=== PATIENT | male | born 1930 | race Caucasian/White ===

== ENCOUNTER 2018-02-10 19:13 | Emergency (ER) | payer MEDICARE, OTHER ==
[2018-02-10 19:31] VITALS: BP 170/79; PULSE 65; RESP 16; TEMP 97.3
--- NOTE | 2018-02-10 21:10 | XR ---
EXAMINATION TYPE: XR lumbar spine 2 or 3V DATE OF EXAM: 02/10/2018 COMPARISON: September 23, 2013 HISTORY: Pinched nerve TECHNIQUE: 3 views. FINDINGS: There is 5 mm anterior subluxation of L4 in relation L5. There is narrowing of the L4-5 disc space. There is thickened 15% depression of the superior endplate of L2 and L1. There is some osteopenia. Th ere is extensive calcification probably due to chronic pancreatitis. There is vascular calcification. Sacroiliac joints are intact. IMPRESSION: Old compression fractures. Degenerative first-degree L4-5 spondylolisthesis. No significant change co mpared to old exam. No acute fracture seen.
--- NOTE | 2018-02-10 22:21 | CT ---
EXAMINATION TYPE: CT thor lumbar spine wo con DATE OF EXAM: 02/10/2018 COMPARISON: Chest CT scan 12/13/2010 HISTORY: Generalized back pain. CT DLP: 674.5 mGycm Automated exposure control for dose reduction was used. FINDINGS: There is osteopenia. There is 15% compression of the inferior endplates of L4 and L5. There is 30% co mpression superior endplate of L2. There is 10% compression superior endplate of L1. There is 15% ant erior wedging of T12 T11 T9 T8. There is 25% anterior wedging T6. There is thoracic dextroscoliosis a nd slight lumbar levoscoliosis. There is no thoracic paraspinal mass. The posterior elements are inta ct. There is a stellate 3 cm infiltrate in the right upper lobe at the apex. There is some linear den sity at the posterior lung bases. IMPRESSION: THERE ARE NUMEROUS MILD THORACIC COMPRESSION FRACTURES THAT ARE ESSENTIALLY NEW COMPARED TO OLD CHEST CT SCAN OF 12/13/2010 AND CONSISTENT WITH OSTEOPOROSIS. THERE ARE MULTIPLE LUMBAR COMPRESSION FRACTUR ES UNCHANGED COMPARED TO LUMBAR SPINE CT SCAN OF SEPTEMBER 23, 2013.. THESE ARE CONSISTENT WITH OSTEOPOR OSIS.
--- NOTE | 2018-02-10 23:14 | ED ---
General Adult HPI - General Chief complaint: Back Pain/Injury Stated complaint: Back pain Time Seen by Provider: 02/10/18 20:37 Source: patient, family, RN notes reviewed Mode of arrival: wheelchair Limitations: no limitations - History of Present Illness Initial comments: 87-year-old male presents to the emergency room for a chief complaint of mid back pain 5 days. Patient states he was working on a project at a desk in a twisted position and ever since then has had pain in his back. Patient states that his primary care doctors and was diagnosed with a nerve. He was given Epworth and Motrin for pain relief. Daughter states patient is ambulatory at home and is able to get up and down from a sitting position without difficulty. Daughter states she is monitoring him during this time. Patient denies any bladder or bowel changes. Patient denies any saddle anesthesia. he describes the pain as sharp shooting pain in mid and lower back. This pain is consistent with previous episodes of back pain. Patient has a history of compression fractures. Patient has no other complaints at this time including shortness of breath, chest pain, abdominal pain, nausea or vomiting, headache, or visual changes. - Related Data Home Medications Medication Instructions Recorded Confirmed Enalapril [Vasotec] 5 mg PO DAILY 07/03/14 02/10/18 Ezetimibe/Simvastatin [Vytorin 1 tab PO DAILY 07/03/14 02/10/18 10-20 mg Tablet] LORazepam [Ativan] 1 mg PO TID PRN 07/03/14 02/10/18 Metoprolol Tartrate [Lopressor] 12.5 mg PO DAILY 07/03/14 02/10/18 Multivitamins, Thera [Multivitamin 1 tab PO DAILY 02/13/15 02/10/18 (formulary)] HYDROcodone/APAP 5-325MG [Epworth 1 tab PO TID PRN 02/10/18 02/10/18 5-325] Lidocaine 5% Oint [Xylocaine 5% 1 applic TOPICAL DAILY PRN 02/10/18 02/10/18 Oint] Lidocaine [Lidoderm 5% Patch] 1 patch TRANSDERM DAILY PRN 02/10/18 02/10/18 Previous Rx's Medication Instructions Recorded Aspirin EC [Ecotrin Low Dose] 81 mg PO BID tablet. 02/16/15 Isosorbide Mononitrate ER [Imdur] 30 mg PO DAILY tab.er.24h 02/16/15 Nitroglycerin Sl Tabs [Nitrostat] 0.4 mg SUBLINGUAL Q5M PRN #0 tab 02/16/15 metFORMIN HCL ER [Glucophage Xr] 500 mg PO PC-SUPPER tab.er.24h 02/16/15 Allergies Allergy/AdvReac Type Severity Reaction Status Date / Time No Known Allergies Allergy Verified 02/10/18 20:52 Review of Systems ROS Statement: Those systems with pertinent positive or pertinent negative responses have been documented in the HPI. ROS Other: All systems not noted in ROS Statement are negative. Past Medical History Past Medical History: COPD, Diabetes Mellitus, Hyperlipidemia, Hypertension, Memory Impairment Additional Past Medical History / Comment(s): Hard of Hearing History of Any Multi-Drug Resistant Organisms: None Reported Past Surgical History: Hernia Repair, Orthopedic Surgery Additional Past Surgical History / Comment(s): Triple A repair, heart valve repair, Past Anesthesia/Blood Transfusion Reactions: No Reported Reaction Past Psychological History: Anxiety Smoking Status: Current every day smoker Past Alcohol Use History: Rare Past Drug Use History: None Reported - Past Family History Father Family Medical History: Cancer Mother Family Medical History: CVA/TIA General Exam Limitations: no limitations General appearance: alert, in no apparent distress Eye exam: Present: normal appearance, PERRL, EOMI. Absent: scleral icterus, conjunctival injection, periorbital swelling, periorbital tenderness Neck exam: Present: normal inspection, full ROM. Absent: tenderness, meningismus, lymphadenopathy Respiratory exam: Present: normal lung sounds bilaterally. Absent: respiratory distress, wheezes, rales, rhonchi, stridor Cardiovascular Exam: Present: regular rate, normal rhythm, normal heart sounds. Absent: systolic murmur, diastolic murmur, rubs, gallop, clicks Extremities exam: Present: normal capillary refill (cap refill < 2 secs in lower extremities bilaterally.), other (sensation intact in LE bilaterally. patient is able to move both feet without difficulty.) Back exam: Present: full ROM (Patient has limited flexion and extension of the lumbar spine. He is able to go from a laying to seated position and from seated to standing. He was able to transfer from the bed to the wheelchair with one assist. ), tenderness (Tenderness to palpation of the thoracic and lumbar spine. ), vertebral tenderness. Absent: CVA tenderness (R), CVA tenderness (L), paraspinal tenderness Neurological exam: Present: alert Psychiatric exam: Present: normal affect, normal mood Course Vital Signs 02/10/18 19:26 Temperature 97.3 F L Pulse Rate 65 Respiratory 16 Rate Blood Pressure 170/79 O2 Sat by Pulse 97 Oximetry Medical Decision Making - Medical Decision Making 87-year-old male presents to the emergency department for a chief complaint of mid and lower back pain 5 days. Patient was working on a project at his desk in a twisted position which caused the pain. Patient has a pinched nerve according to his primary care doctor. His primary prescribed him Epworth and Motrin which the daughter states the patient has not been taking as often as directed. On exam patient has tenderness of the thoracic and lumbar spine. He is able to go from a laying to a sitting position with one assist as well as from sitting to standing. He is able to transfer from bed to wheelchair with one assist. Neurovascular intact in the lower extremities bilaterally. Patient denies any saddle anesthesia, bladder or bowel changes, or shooting pain or numbness down the legs.CT of the thoracic spine shows numerous compression fractures that are essentially new compared to the old chest computed tomography scan from 2011 and consistent with osteoporosis. On the lumbar CT there are multiple compression fractures unchanged compared to the lumbar spines scan of 2013 which are also consistent with osteoporosis. However I discussed this with the patient's daughter and she states he has had multiple thoracic compression fracture since 2010 that she is already aware of. Patient was offered pain medication in the emergency determine but daughter states that the pain meds like morphine makes him delirious. Muscle relaxers also make him delirious. Patient was offered admission into the emergency department for pain management. Patient declined this. He states he would rather go home and try to take the Epworth and Motrin as directed. Daughter will be there to monitor him. She will bring him back to the emergency department if he has any worsening symptoms or his pain is not controlled. She is aware that she can do this. Otherwise they will follow up with primary care in 1-2 days. Disposition Clinical Impression: Mechanical back pain Disposition: HOME SELF-CARE Condition: Good Instructions: Chronic Back Pain (ED) Additional Instructions: Please continue to take an Epworth every 6 hours and Motrin in between the Epworth as directed by her primary care doctor. If symptoms worsen or do not improve return to the emergency department. Otherwise follow-up with Dr. Frankel in one to 2 days as discussed. Is patient prescribed a controlled substance at d/c from ED?: No Referrals: Jeremy Frankel MD [Primary Care Provider] - 1-2 days Time of Disposition: 23:13
== END 2018-02-10 23:22 | disposition home or self-care (01) ==
LOC: EC 19:13
DX: M54.6 Pain in thoracic spine (principal); M54.5 Low back pain; E78.5 Hyperlipidemia, unspecified; I10 Essential (primary) hypertension; F41.9 Anxiety disorder, unspecified; F17.200 Nicotine dependence, unspecified, uncomplicated; Z98.890 Other specified postprocedural states; Z79.899 Other long term (current) drug therapy; X50.1XXA Overexertion from prolonged static or awkward postures, initial encounter; Y93.89 Activity, other specified
CPT/HCPCS: 72100; 72128; 72131; 99283

== ENCOUNTER 2018-08-15 21:51 | Emergency (ER) | payer MEDICARE, OTHER ==
[2018-08-15 22:07] VITALS: TEMP 98.3
[2018-08-15] MEDS ORDERED: IPRATROPIUM-ALBUTEROL 3 ML NEB INHALATION STA (22:17)
[2018-08-15] MEDS ORDERED: ASPIRIN 81 MG PO STA (22:17)
[2018-08-15 22:57] LABS: Basophils % (A) 0 %; Eosinophils # (A) 0.1 k/uL (0-0.7); Eosinophils % (A) 2 %; HCT 45.6 % (39.0-53.0); HGB 14.3 gm/dL (13.0-17.5); Lymphocytes # (A) 1.7 k/uL (1.0-4.8); Lymphocytes % (A) 29 %; MCHC 31.3 g/dL (31.0-37.0); MCV 95.8 fL (80.0-100.0); Mean Platelet Volume 7.5; Monocytes # (A) 0.5 k/uL (0-1.0); Monocytes % (A) 9 %; Neutrophils # (A) 3.2 k/uL (1.3-7.7); Neutrophils % (A) 57 %; Platelet Count 218 k/uL (150-450); RBC 4.76 m/uL (4.30-5.90); RDW 14.2 % (11.5-15.5); WBC 5.6 k/uL (3.8-10.6)
[2018-08-15 23:08] LABS: Anion Gap 5 mmol/L; Blood Urea Nitrogen 28 mg/dL (9-20); Calcium 9.7 mg/dL (8.4-10.2); Carbon Dioxide 28 mmol/L (22-30); Chloride 107 mmol/L (98-107); Glucose 232 mg/dL (74-99); Magnesium 1.8 mg/dL (1.6-2.3); Potassium 4.5 mmol/L (3.5-5.1); Sodium 140 mmol/L (137-145)
--- NOTE | 2018-08-15 23:45 | XR ---
EXAMINATION TYPE: XR chest 2V DATE OF EXAM: 08/15/2018 COMPARISON: 03/22/2015 HISTORY: Chest pain TECHNIQUE: Frontal and lateral views of the chest are obtained. FINDINGS: Heart is enlarged. Thoracic aorta is atheromatous. There is no heart failure. There is holland e coarsening of the lung markings. There is no pleural effusion. There are chest leads. There is 25% anterior wedging of T10 vertebra. IMPRESSION: COPD. Cardiomegaly. Pulmonary fibrosis. Mild compression fracture of T10 compared to old exam.
--- NOTE | 2018-08-15 23:47 | XR ---
EXAMINATION TYPE: XR abdomen 1V DATE OF EXAM: 08/15/2018 COMPARISON: NONE HISTORY: Difficulty breathing. Short of breath. TECHNIQUE: 2 views upright FINDINGS: There is no sign of intestinal obstruction or pneumoperitoneum. Fecal pattern is normal. Th ere is vascular calcification. There is amorphous calcification over the left upper quadrant that cou ld be splenic calcification. Renal calcification is also possible. IMPRESSION: Nonacute abdomen. No free air.
[2018-08-16] MEDS ORDERED: predniSONE 20 MG TAB PO STA (00:39)
[2018-08-16] MEDS ORDERED: AZITHROMYCIN 500 MG TAB PO STA (00:39)
[2018-08-16 00:57] VITALS: BP 145/67; PULSE 58; RESP 16
--- NOTE | 2018-08-16 00:57 | ED ---
General Adult HPI - General Chief complaint: Shortness of Breath Stated complaint: ALFREDO Time Seen by Provider: 08/15/18 22:09 Source: patient Mode of arrival: ambulatory Limitations: no limitations - History of Present Illness Initial comments: Patient is an 88-year-old male presents with a chief complaint of shortness of breath. Patient says he has been increasingly short of breath with a productive cough over the last 2 days. He cannot identify an inciting incident though he does admit that he has a sick granddaughter at home. Patient denies fever, nausea or vomiting. He denies chest pain. Patient states that his cough is productive of yellowish brownish sputum. Patient also complains of a stomachache. Last bowel movement was yesterday. - Related Data Home Medications Medication Instructions Recorded Confirmed Enalapril [Vasotec] 5 mg PO DAILY 07/03/14 02/10/18 Ezetimibe/Simvastatin [Vytorin 1 tab PO DAILY 07/03/14 02/10/18 10-20 mg Tablet] LORazepam [Ativan] 1 mg PO TID PRN 07/03/14 02/10/18 Metoprolol Tartrate [Lopressor] 12.5 mg PO DAILY 07/03/14 02/10/18 Multivitamins, Thera [Multivitamin 1 tab PO DAILY 02/13/15 02/10/18 (formulary)] HYDROcodone/APAP 5-325MG [[place] 1 tab PO TID PRN 02/10/18 02/10/18 5-325] Lidocaine 5% Oint [Xylocaine 5% 1 applic TOPICAL DAILY PRN 02/10/18 02/10/18 Oint] Lidocaine [Lidoderm 5% Patch] 1 patch TRANSDERM DAILY PRN 02/10/18 02/10/18 Previous Rx's Medication Instructions Recorded Aspirin EC [Ecotrin Low Dose] 81 mg PO BID tablet. 02/16/15 Isosorbide Mononitrate ER [Imdur] 30 mg PO DAILY tab.er.24h 02/16/15 Nitroglycerin Sl Tabs [Nitrostat] 0.4 mg SUBLINGUAL Q5M PRN #0 tab 02/16/15 metFORMIN HCL ER [Glucophage Xr] 500 mg PO PC-SUPPER tab.er.24h 02/16/15 Albuterol Inhaler [Ventolin Hfa 1 - 2 puff INHALATION RT-Q6H #1 08/16/18 Inhaler] inhaler Azithromycin 250 mg PO DAILY #4 tablet 08/16/18 predniSONE 60 mg PO DAILY #12 tab 08/16/18 Allergies Allergy/AdvReac Type Severity Reaction Status Date / Time No Known Allergies Allergy Verified 08/15/18 22:07 Review of Systems ROS Statement: Those systems with pertinent positive or pertinent negative responses have been documented in the HPI. ROS Other: All systems not noted in ROS Statement are negative. Respiratory: Reports: as per HPI, cough Gastrointestinal: Reports: abdominal pain Past Medical History Past Medical History: COPD, Diabetes Mellitus, Hyperlipidemia, Hypertension, Memory Impairment Additional Past Medical History / Comment(s): Hard of Hearing History of Any Multi-Drug Resistant Organisms: None Reported Past Surgical History: Hernia Repair, Orthopedic Surgery Additional Past Surgical History / Comment(s): Triple A repair, heart valve repair, Past Anesthesia/Blood Transfusion Reactions: No Reported Reaction Past Psychological History: Anxiety Smoking Status: Current every day smoker Past Alcohol Use History: Occasional Past Drug Use History: None Reported - Past Family History Father Family Medical History: Cancer Mother Family Medical History: CVA/TIA General Exam Limitations: no limitations General appearance: alert, in no apparent distress Head exam: Present: atraumatic, normocephalic Eye exam: Present: normal appearance ENT exam: Present: normal exam Neck exam: Present: normal inspection Respiratory exam: Present: decreased breath sounds. Absent: respiratory distress, wheezes Cardiovascular Exam: Present: regular rate, normal rhythm GI/Abdominal exam: Present: soft, tenderness (Patient has mild generalized tenderness.). Absent: distended Rectal exam: Present: deferred Extremities exam: Present: normal inspection Back exam: Present: other (Patient has what appears to be scoliosis, right- sided ribs are elevated when compared to the left. No tenderness to palpation.) Neurological exam: Present: alert, oriented X3 Psychiatric exam: Present: normal affect, normal mood Skin exam: Present: warm, dry, intact Course Vital Signs 08/15/18 08/15/18 08/15/18 22:03 22:34 22:59 Temperature 98.3 F Pulse Rate 58 L 56 L 61 Respiratory 20 Rate Blood Pressure 187/98 O2 Sat by Pulse 95 Oximetry 08/16/18 00:56 Temperature Pulse Rate 58 L Respiratory 16 Rate Blood Pressure 145/67 O2 Sat by Pulse 96 Oximetry Medical Decision Making - Medical Decision Making Patient presents with chief complaint cough and shortness of breath. On initial evaluation, vital signs show hypertension but are otherwise unremarkable. EKG performed at 2220 shows sinus bradycardia with a rate of 55 bpm. There is left axis deviation. Sinus. A normal limits, no acute signs of ischemia. When compared to previous study performed on 07/29/2017, with forms a similar, no acute changes. Patient evaluated with basic labs including troponins, chest x-ray, and CT of the abdomen given abdominal pain. Patient given aspirin and breathing treatments. He was reexamined after the breathing treatments with improvement of his breath sounds and alleviation of his shortness of breath. Labs thus far unremarkable, troponin negative. Chest x- ray shows no evidence of pneumonia although there is cardiomegaly present. No overt congestive heart failure. Computed tomography scan of the abdomen and pelvis shows no evidence of acute process. At this time, patient stable for discharge. He will be treated for bronchitis with azithromycin and prednisone and albuterol. Patient was instructed to follow-up with primary care in 1-2 days, return to the emergency department if symptoms worsen or change. - Lab Data Result diagrams: 08/15/18 22:37 08/15/18 22:37 Lab Results 08/15/18 08/15/18 08/15/18 Range/Units 22:37 22:37 22:37 WBC 5.6 (3.8-10.6) k/uL RBC 4.76 (4.30-5.90) m/uL Hgb 14.3 (13.0-17.5) gm/dL Hct 45.6 (39.0-53.0) % MCV 95.8 (80.0-100.0) fL MCH 30.0 (25.0-35.0) pg MCHC 31.3 (31.0-37.0) g/dL RDW 14.2 (11.5-15.5) % Plt Count 218 (150-450) k/uL Neutrophils % 57 % Lymphocytes % 29 % Monocytes % 9 % Eosinophils % 2 % Basophils % 0 % Neutrophils # 3.2 (1.3-7.7) k/uL Lymphocytes # 1.7 (1.0-4.8) k/uL Monocytes # 0.5 (0-1.0) k/uL Eosinophils # 0.1 (0-0.7) k/uL Basophils # 0.0 (0-0.2) k/uL Sodium 140 (137-145) mmol/L Potassium 4.5 (3.5-5.1) mmol/L Chloride 107 (98-107) mmol/L Carbon Dioxide 28 (22-30) mmol/L Anion Gap 5 mmol/L BUN 28 H (9-20) mg/dL Creatinine 0.73 (0.66-1.25) mg/dL Est GFR (CKD-EPI)AfAm >90 (>60 ml/min/1.73 sqM) Est GFR (CKD-EPI)NonAf 84 (>60 ml/min/1.73 sqM) Glucose 232 H (74-99) mg/dL Calcium 9.7 (8.4-10.2) mg/dL Magnesium 1.8 (1.6-2.3) mg/dL Troponin I 0.018 (0.000-0.034) ng/mL NT-Pro-B Natriuret Pep pg/mL 08/15/18 Range/Units 22:37 WBC (3.8-10.6) k/uL RBC (4.30-5.90) m/uL Hgb (13.0-17.5) gm/dL Hct (39.0-53.0) % MCV (80.0-100.0) fL MCH (25.0-35.0) pg MCHC (31.0-37.0) g/dL RDW (11.5-15.5) % Plt Count (150-450) k/uL Neutrophils % % Lymphocytes % % Monocytes % % Eosinophils % % Basophils % % Neutrophils # (1.3-7.7) k/uL Lymphocytes # (1.0-4.8) k/uL Monocytes # (0-1.0) k/uL Eosinophils # (0-0.7) k/uL Basophils # (0-0.2) k/uL Sodium (137-145) mmol/L Potassium (3.5-5.1) mmol/L Chloride (98-107) mmol/L Carbon Dioxide (22-30) mmol/L Anion Gap mmol/L BUN (9-20) mg/dL Creatinine (0.66-1.25) mg/dL Est GFR (CKD-EPI)AfAm (>60 ml/min/1.73 sqM) Est GFR (CKD-EPI)NonAf (>60 ml/min/1.73 sqM) Glucose (74-99) mg/dL Calcium (8.4-10.2) mg/dL Magnesium (1.6-2.3) mg/dL Troponin I (0.000-0.034) ng/mL NT-Pro-B Natriuret Pep 4080 pg/mL Disposition Clinical Impression: Bronchitis Disposition: HOME SELF-CARE Condition: Good Instructions: Acute Bronchitis (ED) Prescriptions: Albuterol Inhaler [Ventolin Hfa Inhaler] 1 - 2 puff INHALATION RT-Q6H #1 inhaler Azithromycin 250 mg PO DAILY #4 tablet predniSONE 60 mg PO DAILY #12 tab Is patient prescribed a controlled substance at d/c from ED?: No Referrals: Jeremy Frankel MD [Primary Care Provider] - 1-2 days
--- NOTE | 2018-08-16 01:08 | CT ---
EXAMINATION TYPE: CT abdomen pelvis w con DATE OF EXAM: 08/16/2018 COMPARISON: 07/29/2017 HISTORY: Abdominal pain CT DLP: 486.6 mGycm Automated exposure control for dose reduction was used. TECHNIQUE: Helical acquisition of images was performed from the lung bases through the pelvis. CONTRAST: Performed without Oral Contrast and with IV Contrast, patient injected with 100 mL of Isovue 300. FINDINGS: There is some atelectasis at the left lung base.. Heart is enlarged. There is no pleural effusion. Th ere is no pericardial effusion. Abdominal aorta is atheromatous. Liver shows no focal defect. Gallbla dder appears normal. The spleen appears normal. There are numerous pancreatic calcifications. There i s 2.9 cm low-density left adrenal mass. The kidneys show satisfactory contrast opacification. There is no hydronephrosis. There is no retrope ritoneal adenopathy. There is atherosclerotic vascular calcification in the abdominal aorta and the b ranches. There is no sign of free air. There is a very small amount of free fluid in the pelvis. Blad ivon distends smoothly. There is no inguinal hernia. There is 25% depression of the superior endplate of L2. There is 15% depression superior endplate of L1. The bony pelvis appears intact. IMPRESSION: THERE IS INCREASED ATELECTASIS AT THE LEFT LUNG BASE COMPARED TO OLD EXAM. THERE IS NEW MINIMAL FREE FLUID IN THE PELVIS COMPARED TO OLD EXAM. NO EVIDENCE OF A BOWEL OBSTRUCTION. NO FREE AIR. EXTENSIVE ATHEROSCLEROTIC VASCULAR DISEASE. OLD COMPRESSION FRACTURES IN THE LUMBAR SPINE. NO ACUTE FRACTURE SE EN. EXTENSIVE PANCREATIC CALCIFICATION CONSISTENT WITH CHRONIC PANCREATITIS UNCHANGED. STABLE LEFT ADRENAL MASS.
== END 2018-08-16 01:21 | disposition home or self-care (01) ==
LOC: EC 21:51
DX: J40 Bronchitis, not specified as acute or chronic (principal); R00.1 Bradycardia, unspecified; I11.9 Hypertensive heart disease without heart failure; M95.4 Acquired deformity of chest and rib; R10.9 Unspecified abdominal pain; E78.5 Hyperlipidemia, unspecified; F17.200 Nicotine dependence, unspecified, uncomplicated; Z79.899 Other long term (current) drug therapy; Z98.890 Other specified postprocedural states
CPT/HCPCS: 36415; 94644; 93005; 83880; 80048; 83735; 84484; 85025; 71046; 74018; 74177; 99285; J7512; Q9967

== ENCOUNTER 2018-09-21 16:17 | Emergency (ER) | payer MEDICARE, OTHER ==
[2018-09-21 17:28] LABS: Basophils % (A) 0 %; Eosinophils # (A) 0.1 k/uL (0-0.7); Eosinophils % (A) 1 %; HCT 45.8 % (39.0-53.0); HGB 14.2 gm/dL (13.0-17.5); Lymphocytes # (A) 1.4 k/uL (1.0-4.8); Lymphocytes % (A) 19 %; MCH 29.3 pg (25.0-35.0); MCV 94.4 fL (80.0-100.0); Monocytes # (A) 0.5 k/uL (0-1.0); Monocytes % (A) 7 %; Neutrophils # (A) 5.2 k/uL (1.3-7.7); Neutrophils % (A) 70 %; Platelet Count 215 k/uL (150-450); RBC 4.85 m/uL (4.30-5.90); RDW 14.1 % (11.5-15.5); WBC 7.4 k/uL (3.8-10.6)
[2018-09-21 17:45] LABS: ALT 31 U/L (21-72); AST 26 U/L (17-59); Albumin 3.7 g/dL (3.5-5.0); Alkaline Phosphatase 74 U/L (38-126); Anion Gap 7 mmol/L; Blood Urea Nitrogen 29 mg/dL (9-20); Calcium 9.6 mg/dL (8.4-10.2); Carbon Dioxide 27 mmol/L (22-30); Chloride 108 mmol/L (98-107); Glucose 132 mg/dL (74-99); Potassium 4.7 mmol/L (3.5-5.1); Sodium 142 mmol/L (137-145); Total Bilirubin 0.5 mg/dL (0.2-1.3); Total Protein 6.5 g/dL (6.3-8.2)
[2018-09-21 17:55] LABS: Creatine Kinase MB 2.8 ng/mL (0.0-2.4); Troponin I 0.031 ng/mL (0.000-0.034)
[2018-09-21 19:39] VITALS: RESP 16
--- NOTE | 2018-09-21 19:42 | ED ---
General Adult HPI - General Source: patient, family, RN notes reviewed Mode of arrival: wheelchair Limitations: no limitations <Jitendra Vanessa - Last Filed: 09/21/18 20:46> <Alfonzo Jacobsen - Last Filed: 09/21/18 22:52> - General Chief complaint: Shortness of Breath Stated complaint: SOB Time Seen by Provider: 09/21/18 19:30 - History of Present Illness Initial comments: This is an 88-year-old male who presents to the emergency department who currently smokes. Patient comes in today because he says since April he's been battling difficulty breathing. Patient states the dyspnea is getting worse since April over the last couple of days he feels as though is much worse. Patient denies any chest pain or palpitations. Patient denies any fever chills. Patient has abdominal pain patient denies nausea vomiting diarrhea. Patient states a month ago he was treated for bronchitis. Patient denies any leg swelling or calf tenderness. Patient denies any recent injury. Patient denies any lightheadedness or dizziness patient denies headache patient denies numbness weakness (Jitendra Vanessa) - Related Data Home Medications Medication Instructions Recorded Confirmed Enalapril [Vasotec] 5 mg PO DAILY 07/03/14 02/10/18 Ezetimibe/Simvastatin [Vytorin 1 tab PO DAILY 07/03/14 02/10/18 10-20 mg Tablet] LORazepam [Ativan] 1 mg PO TID PRN 07/03/14 02/10/18 Metoprolol Tartrate [Lopressor] 12.5 mg PO DAILY 07/03/14 02/10/18 Multivitamins, Thera [Multivitamin 1 tab PO DAILY 02/13/15 02/10/18 (formulary)] HYDROcodone/APAP 5-325MG [[place] 1 tab PO TID PRN 02/10/18 02/10/18 5-325] Lidocaine 5% Oint [Xylocaine 5% 1 applic TOPICAL DAILY PRN 02/10/18 02/10/18 Oint] Lidocaine [Lidoderm 5% Patch] 1 patch TRANSDERM DAILY PRN 02/10/18 02/10/18 Previous Rx's Medication Instructions Recorded Aspirin EC [Ecotrin Low Dose] 81 mg PO BID tablet. 02/16/15 Isosorbide Mononitrate ER [Imdur] 30 mg PO DAILY tab.er.24h 02/16/15 Nitroglycerin Sl Tabs [Nitrostat] 0.4 mg SUBLINGUAL Q5M PRN #0 tab 02/16/15 metFORMIN HCL ER [Glucophage Xr] 500 mg PO PC-SUPPER tab.er.24h 02/16/15 Albuterol Inhaler [Ventolin Hfa 1 - 2 puff INHALATION RT-Q6H #1 08/16/18 Inhaler] inhaler Azithromycin 250 mg PO DAILY #4 tablet 08/16/18 predniSONE 60 mg PO DAILY #12 tab 08/16/18 Albuterol Inhaler [Ventolin Hfa 1 - 2 puff INHALATION RT-Q6H PRN 09/21/18 Inhaler] #1 inhaler predniSONE 50 mg PO DAILY #5 tablet 09/21/18 Allergies Allergy/AdvReac Type Severity Reaction Status Date / Time No Known Allergies Allergy Verified 09/21/18 16:25 Review of Systems ROS Other: All systems not noted in ROS Statement are negative. <Jitendra Vanessa - Last Filed: 09/21/18 20:46> ROS Other: All systems not noted in ROS Statement are negative. <Alfonzo Jacobsen - Last Filed: 09/21/18 22:52> ROS Statement: Those systems with pertinent positive or pertinent negative responses have been documented in the HPI. Past Medical History Past Medical History: COPD, Diabetes Mellitus, Hyperlipidemia, Hypertension, Memory Impairment Additional Past Medical History / Comment(s): Hard of Hearing History of Any Multi-Drug Resistant Organisms: None Reported Past Surgical History: Hernia Repair, Orthopedic Surgery Additional Past Surgical History / Comment(s): Triple A repair, heart valve repair, Past Anesthesia/Blood Transfusion Reactions: No Reported Reaction Past Psychological History: Anxiety Smoking Status: Current every day smoker Past Alcohol Use History: Occasional Past Drug Use History: None Reported - Past Family History Father Family Medical History: Cancer Mother Family Medical History: CVA/TIA <Jitendra Vanessa - Last Filed: 09/21/18 20:46> General Exam Limitations: no limitations <Jitendra Vanessa - Last Filed: 09/21/18 20:46> <Alfonzo Jacobsen - Last Filed: 09/21/18 22:52> - General Exam Comments Initial Comments: GENERAL: Patient is well-developed and well-nourished. Patient is nontoxic and well- hydrated and is in mild distress. ENT: Neck is soft and supple. No significant lymphadenopathy is noted. Oropharynx is clear. Moist mucous membranes. Neck has full range of motion without eliciting any pain. EYES: The sclera were anicteric and conjunctiva were pink and moist. Extraocular movements were intact and pupils were equal round and reactive to light. Eyelids were unremarkable. PULMONARY: Patient has crackles bilateral bases CARDIOVASCULAR: There is a regular rate and rhythm without any murmurs gallops or rubs. ABDOMEN: Soft and nontender with normal bowel sounds. No palpable organomegaly was noted. There is no palpable pulsatile mass. SKIN: Skin is clear with no lesions or rashes and otherwise unremarkable. NEUROLOGIC: Patient is alert and oriented x3. Cranial nerves II through XII are grossly intact. Motor and sensory are also intact. Normal speech, volume and content. Symmetrical smile. MUSCULOSKELETAL: Normal extremities with adequate strength and full range of motion. No lower extremity swelling or edema. No calf tenderness. LYMPHATICS: No significant lymphadenopathy is noted PSYCHIATRIC: Normal psychiatric evaluation. Normal interpersonal interactions appears functionally intact in deals appropriately with others. No signs of depression. No signs of anxiety. (Jitendra Vanessa) Vital Signs 09/21/18 09/21/18 09/21/18 16:22 19:38 19:40 Temperature 98.4 F Pulse Rate 59 L 53 L Respiratory 20 16 Rate Blood Pressure 153/87 167/98 O2 Sat by Pulse 97 Oximetry 09/21/18 09/21/18 21:00 22:48 Temperature 97.8 F Pulse Rate 78 78 Respiratory 16 16 Rate Blood Pressure 176/102 159/94 O2 Sat by Pulse 97 97 Oximetry Medical Decision Making - Lab Data Result diagrams: 09/21/18 17:11 09/21/18 17:11 <Jitendra Vanessa - Last Filed: 09/21/18 20:46> - Lab Data Result diagrams: 09/21/18 17:11 09/21/18 17:11 <Alfonzo Jacobsen - Last Filed: 09/21/18 22:52> - Medical Decision Making EKG shows sinus bradycardia at 59 bpm ME interval is 200 QRS is 126 QT interval is 444 QTC is 439 per patient's EKG shows some T-wave inversions in V5 and V6. Dr. Jacobsen will be taking over the care of this patient at 9 PM (Jitendra Vanessa) This patient was signed out to me by Dr. Vanessa. Computed tomography scan was pending at the time of sign out. I did review the computed tomography scan which did not show any evidence for pneumothorax however did show what appears to be a lung mass and also changes consistent with COPD. Patient does have what appears to be cor pulmonale as well. He does have a mild dilation of his thoracic aorta. The patient has been ambulatory up to the bathroom and back without any his comfort. The patient actually states that he feels improved since coming to the emergency department. I discussed the findings with him and his daughter. I stated that it requires good follow-up if her going to send the patient home. The patient states he feels well enough to go like to try to go home. Blood work was reviewed and unremarkable. I did state that I would give her some steroids and inhaler for the next few days. He is going to call his doctor in the next 1-2 days for follow-up. I told him that he needs to have the lung mass evaluated and the aortic aneurysm followed. He likely is developing worsening COPD. He does continue to smoke. I told him that he could always return if he has worsening or changing symptoms. All questions were answered. (Aflonzo Jacobsen) - Lab Data Lab Results 09/21/18 09/21/18 09/21/18 Range/Units 17:11 17:11 17:11 WBC 7.4 (3.8-10.6) k/uL RBC 4.85 (4.30-5.90) m/uL Hgb 14.2 (13.0-17.5) gm/dL Hct 45.8 (39.0-53.0) % MCV 94.4 (80.0-100.0) fL MCH 29.3 (25.0-35.0) pg MCHC 31.0 (31.0-37.0) g/dL RDW 14.1 (11.5-15.5) % Plt Count 215 (150-450) k/uL Neutrophils % 70 % Lymphocytes % 19 % Monocytes % 7 % Eosinophils % 1 % Basophils % 0 % Neutrophils # 5.2 (1.3-7.7) k/uL Lymphocytes # 1.4 (1.0-4.8) k/uL Monocytes # 0.5 (0-1.0) k/uL Eosinophils # 0.1 (0-0.7) k/uL Basophils # 0.0 (0-0.2) k/uL Sodium 142 (137-145) mmol/L Potassium 4.7 (3.5-5.1) mmol/L Chloride 108 H (98-107) mmol/L Carbon Dioxide 27 (22-30) mmol/L Anion Gap 7 mmol/L BUN 29 H (9-20) mg/dL Creatinine 0.73 (0.66-1.25) mg/dL Est GFR (CKD-EPI)AfAm >90 (>60 ml/min/1.73 sqM) Est GFR (CKD-EPI)NonAf 84 (>60 ml/min/1.73 sqM) Glucose 132 H (74-99) mg/dL Plasma Lactic Acid Parag (0.7-2.0) mmol/L Calcium 9.6 (8.4-10.2) mg/dL Total Bilirubin 0.5 (0.2-1.3) mg/dL AST 26 (17-59) U/L ALT 31 (21-72) U/L Alkaline Phosphatase 74 (38-126) U/L Total Creatine Kinase 64 (55-170) U/L CK-MB (CK-2) 2.8 H (0.0-2.4) ng/mL CK-MB (CK-2) Rel Index 4.4 Troponin I 0.031 (0.000-0.034) ng/mL NT-Pro-B Natriuret Pep pg/mL Total Protein 6.5 (6.3-8.2) g/dL Albumin 3.7 (3.5-5.0) g/dL 09/21/18 09/21/18 Range/Units 17:11 17:11 WBC (3.8-10.6) k/uL RBC (4.30-5.90) m/uL Hgb (13.0-17.5) gm/dL Hct (39.0-53.0) % MCV (80.0-100.0) fL MCH (25.0-35.0) pg MCHC (31.0-37.0) g/dL RDW (11.5-15.5) % Plt Count (150-450) k/uL Neutrophils % % Lymphocytes % % Monocytes % % Eosinophils % % Basophils % % Neutrophils # (1.3-7.7) k/uL Lymphocytes # (1.0-4.8) k/uL Monocytes # (0-1.0) k/uL Eosinophils # (0-0.7) k/uL Basophils # (0-0.2) k/uL Sodium (137-145) mmol/L Potassium (3.5-5.1) mmol/L Chloride (98-107) mmol/L Carbon Dioxide (22-30) mmol/L Anion Gap mmol/L BUN (9-20) mg/dL Creatinine (0.66-1.25) mg/dL Est GFR (CKD-EPI)AfAm (>60 ml/min/1.73 sqM) Est GFR (CKD-EPI)NonAf (>60 ml/min/1.73 sqM) Glucose (74-99) mg/dL Plasma Lactic Acid Parag 0.9 (0.7-2.0) mmol/L Calcium (8.4-10.2) mg/dL Total Bilirubin (0.2-1.3) mg/dL AST (17-59) U/L ALT (21-72) U/L Alkaline Phosphatase (38-126) U/L Total Creatine Kinase (55-170) U/L CK-MB (CK-2) (0.0-2.4) ng/mL CK-MB (CK-2) Rel Index Troponin I (0.000-0.034) ng/mL NT-Pro-B Natriuret Pep 6610 pg/mL Total Protein (6.3-8.2) g/dL Albumin (3.5-5.0) g/dL Disposition <Jitendra Vanessa - Last Filed: 09/21/18 20:46> Is patient prescribed a controlled substance at d/c from ED?: No <Alfonzo Jacobsen - Last Filed: 09/21/18 22:52> Clinical Impression: COPD (chronic obstructive pulmonary disease), Thoracic aortic aneurysm, Lung mass Disposition: HOME SELF-CARE Condition: Stable Instructions: COPD (Chronic Obstructive Pulmonary Disease) (ED) Prescriptions: Albuterol Inhaler [Ventolin Hfa Inhaler] 1 - 2 puff INHALATION RT-Q6H PRN #1 inhaler PRN Reason: Wheezing predniSONE 50 mg PO DAILY #5 tablet Referrals: Jeremy Frankel MD [Primary Care Provider] - 1-2 days
--- NOTE | 2018-09-21 20:29 | XR ---
EXAMINATION TYPE: XR chest 2V DATE OF EXAM: 09/21/2018 COMPARISON: 08/15/2018 HISTORY: 88-year-old male difficulty breathing and shortness of breath TECHNIQUE: PA and lateral views FINDINGS: Heart moderately enlarged. Aortic valve annuloplasty ring. Calcified granuloma right midlung. Retaine d epicardial pacer leads. Hyperinflation. Flattening of the hemidiaphragms. Increased AP chest dimens ion. Some focal air lucencies are seen in the retrosternal clear space and also posteriorly. Pneumoth orax not well seen on the frontal view. IMPRESSION: 1. Moderate cardiomegaly and advanced COPD. 2. Some focal air lucencies are noted in the retrosternal clear space and also posteriorly. Underlyin g PNEUMOTHORAX not excluded though not clearly identified on the frontal view. Findings called to Dr. Vanessa in the ER at 8:25 PM.
[2018-09-21 21:12] VITALS: PULSE 78
--- NOTE | 2018-09-21 22:00 | CT ---
EXAMINATION TYPE: CT chest angio for PE DATE OF EXAM: 09/21/2018 COMPARISON: Radiographs same day and prior CT 12/13/2010 HISTORY: 88-year-old male SOB, R/O PE TECHNIQUE: Contiguous axial scanning of the chest performed with IV Contrast, patient injected with 1 00 mL of Isovue 370. Coronal/sagittal MIP reconstructions performed. CT DLP: 209.1 mGycm Automated exposure control for dose reduction was used. FINDINGS: The heart is mildly enlarged. The descending thoracic aorta is aneurysmal measuring up to 3.3 cm. Mod erate apical scarring calcifications throughout. The patient appears cachectic. Large caliber to the main right and left pulmonary arteries measuring up to 3.0 cm suggesting underly ing pulmonary arterial hypertension. Satisfactory opacification of the pulmonary arterial system with out evidence for pulmonary embolus. Moderate to advanced centrilobular emphysema. Moderate bronchial wall thickening especially in the lower lobes. Interstitial changes at the left ba se may be chronic. There is some volume loss and prominent dependent atelectasis. Scattered calcified subpleural pulmonary nodules on the right. There is an irregular spiculated density measuring 1.9 cm that is gradually enlarged from 2010 where it was much less defined measuring 6 mm. No pneumothorax or pleural effusion. No definite thoracic lymphadenopathy. Small hiatal hernia. Reflux of contrast into the hepatic veins and aneurysmal of the abdominal aorta measuring up to 3.5 cm. Extensive pancreatic calcifications compatible with chronic pancreatitis. Bones: Some asymmetric crowding of the lower left ribs suggesting volume loss. Multiple endplate defo rmities throughout the thoracic spine are new from 2010 and are compatible with age indeterminate end plate injuries. T11 show slight retropulsion into the ventral spinal canal without canal compromise. IMPRESSION: 1. COPD WITH ADVANCED EMPHYSEMA. 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 CLINICALLY CORRELATE. 2. NO EVIDENCE FOR PULMONARY EMBOLUS. 3. NO PNEUMOTHORAX. HOWEVER, THERE IS A GRADUALLY ENLARGING SPICULATED LESION IN THE RIGHT UPPER LOBE CURRENTLY MEASURING 1.9 CM HIGHLY SUSPICIOUS FOR LUNG CANCER. FURTHER PET/CT EVALUATION AND PULMONAR Y REFERRAL RECOMMENDED. PERCUTANEOUS BIOPSY MAY BE CHALLENGING. CONSIDER INTERVENTIONAL CONSULTATION IN THE WORKUP. 4. INTERSTITIAL DENSITIES AT THE LEFT BASE. 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 NO DEFINITE ACUTE PULMONARY PROCESS. 5. MILDLY ANEURYSMAL DESCENDING THORACIC AORTA 3.3 CM AND PARTIALLY VISUALIZED AAA AT 3.5 CM. 6. NOTE THAT THE PATIENT APPEARS CACHECTIC ON CT. CHRONIC PANCREATITIS. MULTIPLE VERTEBRAL ENDPLATE F RACTURES ARE AGE-INDETERMINATE AND NEW FROM 2010.
[2018-09-21 22:49] VITALS: BP 159/94; TEMP 97.8
== END 2018-09-21 22:48 | disposition home or self-care (01) ==
LOC: EC 16:17
DX: J44.9 Chronic obstructive pulmonary disease, unspecified (principal); I71.2 Thoracic aortic aneurysm, without rupture; R91.8 Other nonspecific abnormal finding of lung field; R00.1 Bradycardia, unspecified; R10.9 Unspecified abdominal pain; E78.5 Hyperlipidemia, unspecified; I10 Essential (primary) hypertension; H91.90 Unspecified hearing loss, unspecified ear; F17.200 Nicotine dependence, unspecified, uncomplicated; Z79.899 Other long term (current) drug therapy; Z98.890 Other specified postprocedural states
CPT/HCPCS: 36415; 93005; 83880; 80053; 82550; 82553; 83605; 84484; 85025; 87040; 71046; 71275; 99285; Q9967

== ENCOUNTER 2018-12-08 16:41 | Observation (INO) | payer MEDICARE, OTHER ==
[2018-12-08] MEDS ORDERED: IPRATROPIUM-ALBUTEROL 3 ML NEB INHALATION STA (17:29)
[2018-12-08] MEDS ORDERED: methylPREDNISolone SOD SUCCI 125 MG/2 ML VIAL IV STA (17:29)
[2018-12-08 18:38] LABS: Basophils % (A) 0 %; Eosinophils % (A) 1 %; HCT 42.2 % (39.0-53.0); HGB 13.4 gm/dL (13.0-17.5); Lymphocytes # (A) 1.3 k/uL (1.0-4.8); Lymphocytes % (A) 20 %; MCH 30.2 pg (25.0-35.0); MCHC 31.8 g/dL (31.0-37.0); MCV 95.1 fL (80.0-100.0); Mean Platelet Volume 8.2; Monocytes # (A) 0.5 k/uL (0-1.0); Monocytes % (A) 8 %; Neutrophils # (A) 4.6 k/uL (1.3-7.7); Neutrophils % (A) 69 %; Platelet Count 203 k/uL (150-450); RBC 4.44 m/uL (4.30-5.90); RDW 14.6 % (11.5-15.5); WBC 6.6 k/uL (3.8-10.6)
[2018-12-08 18:41] LABS: ALT 48 U/L (21-72); AST 33 U/L (17-59); Albumin 3.7 g/dL (3.5-5.0); Alkaline Phosphatase 90 U/L (38-126); Anion Gap 6 mmol/L; Blood Urea Nitrogen 28 mg/dL (9-20); Calcium 9.7 mg/dL (8.4-10.2); Carbon Dioxide 30 mmol/L (22-30); Chloride 105 mmol/L (98-107); Glucose 130 mg/dL (74-99); Potassium 4.8 mmol/L (3.5-5.1); Sodium 141 mmol/L (137-145); Total Bilirubin 0.9 mg/dL (0.2-1.3); Total Protein 6.3 g/dL (6.3-8.2)
[2018-12-08 18:43] LABS: Partial Thromboplastin Time 26.1 sec (22.0-30.0); Prothrombin Time 10.8 sec (9.0-12.0)
--- NOTE | 2018-12-08 19:48 | CT ---
EXAMINATION TYPE: CT chest angio for PE with contrast and with 3-D reconstruction renderings DATE OF EXAM: 12/08/2018 COMPARISON: 09/21/2018 HISTORY: Shortness of breath. Left lower quadrant mass/lump. CT DLP: 198.5 mGycm Automated exposure control for dose reduction was used. CONTRAST: CT Chest for pulmonary embolism performed with with IV Contrast, patient injected with 100 mL of Isovue 370. 3-D reconstructions. FINDINGS: ACUTE FINDINGS: The pulmonary arteries are well opacified and are negative for filling defects to sug gest pulmonary emboli. The lungs are negative for pulmonary edema or major atelectasis/pneumonia. Scattered areas of groundg lass opacity are noted on the right, but these are nonspecific findings. Pleural spaces are negative. No acute skeletal or soft tissue findings. REDEMONSTRATED FINDINGS: However, the previously seen 2 cm right upper lobe spiculated bronchogenic m ass is redemonstrated, similar in morphology and size. The previously seen advanced emphysematous changes and evident pulmonary arterial hypertension, likel y cor pulmonale, are redemonstrated. IMPRESSION: NEGATIVE FOR PULMONARY EMBOLISM; NO DEFINITE ACUTE PROCESS.
--- NOTE | 2018-12-08 20:09 | CT ---
EXAMINATION TYPE: CT abdomen pelvis w IV con, but no oral contrast DATE OF EXAM: 12/08/2018 COMPARISON: 08/16/2018 CT HISTORY: Shortness of breath. Left lower quadrant mass/lump. CT DLP: 405.2 mGycm Automated exposure control for dose reduction was used. TECHNIQUE: Helical acquisition of images was performed from the lung bases through the pelvis. CONTRAST: Performed without Oral Contrast and with IV Contrast, patient injected with mL of Isovue 37 0. FINDINGS: LIVER/GB: No significant abnormality is appreciated. PANCREAS: Pancreatic microcalcifications consistent with chronic pancreatitis is redemonstrated. No a cute findings. SPLEEN: No significant abnormality is seen. ADRENALS: Unchanged left adrenal nodule. KIDNEYS: No significant abnormality is seen. FREE AIR: No free air is visualized. RETROPERITONEAL ADENOPATHY: None visualized REPRODUCTIVE ORGANS: No significant abnormality is seen URINARY BLADDER: No significant abnormality is seen. PELVIC ADENOPATHY: None visualized. OSSEOUS STRUCTURES: No significant abnormality is seen. BOWEL: No significant abnormality is seen. However, the unopacified loops of bowel in all 4 quadrant s, together with no abdominal or pelvic fat, limits visualization to a marked degree. OTHER: No acute vascular findings are evident. Marked cardiomegaly and angiographic enlargement and coronary calcifications. IMPRESSION: NO ACUTE PROCESS. No definite CT correlate for the left lower quadrant palpable finding.
[2018-12-08] MEDS ORDERED: MORPHINE SULFATE 2 MG/ML SYRINGE IVP ONE (21:14)
[2018-12-08] MEDS ORDERED: NALOXONE 0.4 MG/ML 1 ML VIAL IV PRN (21:37)
[2018-12-08] MEDS ORDERED: LORazepam 1 MG TAB PO PRN (21:39)
[2018-12-08] MEDS ORDERED: HYDROcodone/APAP 5-325MG 1 EACH TAB PO PRN (21:39)
[2018-12-08] MEDS: IPRATROPIUM-ALBUTEROL 3 ML NEB INHALATION SCH (21:50)
--- NOTE | 2018-12-08 23:05 | ED ---
SOB HPI - General Chief Complaint: Shortness of Breath Stated Complaint: ALFREDO Time Seen by Provider: 12/08/18 17:11 Source: patient, family Mode of arrival: wheelchair Limitations: no limitations - History of Present Illness Initial Comments: Patient is an 88 year old male who presents to [facility] with complaint of shortness of breath. Admits that the symptoms have been going on for the past 2 weeks. He does have a history of COPD. Does not use any nebulizers at home. The patient's son-in-law is at bedside and states the patient continues to smoke . The patient denies a cough, hemoptysis, fevers or chills. He does admit to associated chest pain. Chest pain waxes and wanes on him. It is located in the substernal region without radiation. He admits to a history of valvular disease however no history of MS or stent placement. Denies ripping or tearing sensation to his back. No pleuritic chest pain. Denies any calf pain or swelling. Denies prolonged immobility, recent travel, history of blood clots or clotting disorders. Patient complains of an 11 pound weight loss in the past month. Reports he does not have an appetite. Denies a history of cancer. He denies a history of congestive heart failure. States that his legs have been mildly swollen. Review of the patient's record reveals that he has a spiculated lung mass which his doctor is aware of. He denies any headaches, visual changes, unilateral numbness or weakness. There are no other alleviating precipitating or modifying factors - Related Data Home Medications Medication Instructions Recorded Confirmed Enalapril [Vasotec] 5 mg PO DAILY 07/03/14 12/08/18 Ezetimibe/Simvastatin [Vytorin 1 tab PO DAILY 07/03/14 12/08/18 10-20 mg Tablet] LORazepam [Ativan] 1 mg PO TID PRN 07/03/14 12/08/18 Metoprolol Tartrate [Lopressor] 12.5 mg PO DAILY 07/03/14 12/08/18 Multivitamins, Thera [Multivitamin 1 tab PO DAILY 02/13/15 12/08/18 (formulary)] HYDROcodone/APAP 5-325MG [[place] 1 tab PO TID PRN 02/10/18 12/08/18 5-325] Omeprazole 20 mg PO DAILY 12/08/18 12/08/18 metFORMIN HCL ER [Glucophage Xr] 500 mg PO HS 12/08/18 12/08/18 Previous Rx's Medication Instructions Recorded Aspirin EC [Ecotrin Low Dose] 81 mg PO BID tablet. 02/16/15 Isosorbide Mononitrate ER [Imdur] 30 mg PO DAILY tab.er.24h 02/16/15 Nitroglycerin Sl Tabs [Nitrostat] 0.4 mg SUBLINGUAL Q5M PRN #0 tab 02/16/15 Allergies Allergy/AdvReac Type Severity Reaction Status Date / Time No Known Allergies Allergy Verified 12/08/18 18:47 Review of Systems ROS Statement: Those systems with pertinent positive or pertinent negative responses have been documented in the HPI. ROS Other: All systems not noted in ROS Statement are negative. Past Medical History Past Medical History: COPD, Diabetes Mellitus, Hyperlipidemia, Hypertension, Memory Impairment Additional Past Medical History / Comment(s): Hard of Hearing History of Any Multi-Drug Resistant Organisms: None Reported Past Surgical History: Hernia Repair, Orthopedic Surgery Additional Past Surgical History / Comment(s): Triple A repair, heart valve repair, Past Anesthesia/Blood Transfusion Reactions: No Reported Reaction Past Psychological History: Anxiety Smoking Status: Current every day smoker Past Alcohol Use History: Occasional Past Drug Use History: None Reported - Past Family History Father Family Medical History: Cancer Mother Family Medical History: CVA/TIA General Exam Limitations: no limitations General appearance: alert, in no apparent distress Head exam: Present: atraumatic, normocephalic Eye exam: Present: normal appearance, PERRL, EOMI Pupils: Present: normal accommodation ENT exam: Present: normal exam, mucous membranes dry Neck exam: Present: normal inspection. Absent: thyromegaly Respiratory exam: Present: wheezes. Absent: respiratory distress, rales, rhonchi, stridor, accessory muscle use Cardiovascular Exam: Present: normal rhythm, bradycardia GI/Abdominal exam: Present: soft, normal bowel sounds, other (The patient does have a palpable mass in his right inguinal region. It is not reducible). Absent: tenderness, guarding, rebound, rigid exam: Present: normal inspection. Absent: testicular tenderness, scrotal swelling Extremities exam: Present: full ROM Back exam: Present: normal inspection. Absent: tenderness, paraspinal tenderness, vertebral tenderness Neurological exam: Present: alert, oriented X3, CN II-XII intact, reflexes normal Psychiatric exam: Present: normal affect Skin exam: Present: warm, dry, intact Course Vital Signs 12/08/18 12/08/18 12/08/18 17:00 17:13 17:30 Temperature 97.8 F Pulse Rate 71 Respiratory 18 Rate Blood Pressure 147/79 139/88 O2 Sat by Pulse 97 98 Oximetry 12/08/18 12/08/18 12/08/18 18:00 18:30 18:39 Temperature Pulse Rate 70 72 Respiratory 15 Rate Blood Pressure 149/90 157/88 O2 Sat by Pulse 98 Oximetry 12/08/18 12/08/18 12/08/18 20:00 20:56 21:52 Temperature Pulse Rate 67 Respiratory 16 Rate Blood Pressure 157/99 164/94 O2 Sat by Pulse 100 Oximetry 12/08/18 22:03 Temperature Pulse Rate 70 Respiratory Rate Blood Pressure O2 Sat by Pulse Oximetry Medical Decision Making - Medical Decision Making The patient was placed into room 7. He is hooked up to continuous pulse ox and cardiac monitoring. A 12-lead EKG was performed which demonstrates a normal sinus bradycardia with a ventricular rate of 54. DE interval 194 QRS 128 QTC 436. There is minimal ST elevation in leads V3 V4. This is compared to patient's previous EKG and was seen previously. There are no signs of ischemic changes. The patient does not have active chest pain at this time. I did recommend laboratory studies. I also recommended a CTA of the patient's chest and CT of the patient's abdomen and pelvis with IV contrast. Upon return of the results I did discuss with the patient and his daughter at bedside. Daughter states that she is aware of this spiculated mass on imaging. The patient does show extensive signs of COPD. He was provided with a DuoNeb breathing treatment and 125 mg of Solu-Medrol. The patient is currently satting 93% on room air however has no improvement in his work of breathing. The patient has a mildly elevated troponin. Because of this I did recommend overnight observation for which the patient did agree to. I called the patient's primary care physician Dr. Frankel. Dr. Frankel does accept admission of the patient. He does not recommend heparinization of the patient. Bridging orders were placed. The patient's home medications were ordered. He did remain in stable condition and is awaiting transport to the floor - Differential Diagnosis ACS, acute exacerbation of COPD, NSTEMI - Lab Data Result diagrams: 12/08/18 18:16 12/08/18 18:16 Lab Results 12/08/18 12/08/18 12/08/18 Range/Units 18:16 18:16 18:16 WBC 6.6 (3.8-10.6) k/uL RBC 4.44 (4.30-5.90) m/uL Hgb 13.4 (13.0-17.5) gm/dL Hct 42.2 (39.0-53.0) % MCV 95.1 (80.0-100.0) fL MCH 30.2 (25.0-35.0) pg MCHC 31.8 (31.0-37.0) g/dL RDW 14.6 (11.5-15.5) % Plt Count 203 (150-450) k/uL Neutrophils % 69 % Lymphocytes % 20 % Monocytes % 8 % Eosinophils % 1 % Basophils % 0 % Neutrophils # 4.6 (1.3-7.7) k/uL Lymphocytes # 1.3 (1.0-4.8) k/uL Monocytes # 0.5 (0-1.0) k/uL Eosinophils # 0.0 (0-0.7) k/uL Basophils # 0.0 (0-0.2) k/uL PT (9.0-12.0) sec INR (<1.2) APTT (22.0-30.0) sec Sodium 141 (137-145) mmol/L Potassium 4.8 (3.5-5.1) mmol/L Chloride 105 (98-107) mmol/L Carbon Dioxide 30 (22-30) mmol/L Anion Gap 6 mmol/L BUN 28 H (9-20) mg/dL Creatinine 0.74 (0.66-1.25) mg/dL Est GFR (CKD-EPI)AfAm >90 (>60 ml/min/1.73 sqM) Est GFR (CKD-EPI)NonAf 84 (>60 ml/min/1.73 sqM) Glucose 130 H (74-99) mg/dL Calcium 9.7 (8.4-10.2) mg/dL Total Bilirubin 0.9 (0.2-1.3) mg/dL AST 33 (17-59) U/L ALT 48 (21-72) U/L Alkaline Phosphatase 90 (38-126) U/L Troponin I (0.000-0.034) ng/mL NT-Pro-B Natriuret Pep 45973 pg/mL Total Protein 6.3 (6.3-8.2) g/dL Albumin 3.7 (3.5-5.0) g/dL 12/08/18 12/08/18 12/08/18 Range/Units 18:16 18:16 21:25 WBC (3.8-10.6) k/uL RBC (4.30-5.90) m/uL Hgb (13.0-17.5) gm/dL Hct (39.0-53.0) % MCV (80.0-100.0) fL MCH (25.0-35.0) pg MCHC (31.0-37.0) g/dL RDW (11.5-15.5) % Plt Count (150-450) k/uL Neutrophils % % Lymphocytes % % Monocytes % % Eosinophils % % Basophils % % Neutrophils # (1.3-7.7) k/uL Lymphocytes # (1.0-4.8) k/uL Monocytes # (0-1.0) k/uL Eosinophils # (0-0.7) k/uL Basophils # (0-0.2) k/uL PT 10.8 (9.0-12.0) sec INR 1.0 (<1.2) APTT 26.1 (22.0-30.0) sec Sodium (137-145) mmol/L Potassium (3.5-5.1) mmol/L Chloride (98-107) mmol/L Carbon Dioxide (22-30) mmol/L Anion Gap mmol/L BUN (9-20) mg/dL Creatinine (0.66-1.25) mg/dL Est GFR (CKD-EPI)AfAm (>60 ml/min/1.73 sqM) Est GFR (CKD-EPI)NonAf (>60 ml/min/1.73 sqM) Glucose (74-99) mg/dL Calcium (8.4-10.2) mg/dL Total Bilirubin (0.2-1.3) mg/dL AST (17-59) U/L ALT (21-72) U/L Alkaline Phosphatase (38-126) U/L Troponin I 0.039 H* 0.034 (0.000-0.034) ng/mL NT-Pro-B Natriuret Pep pg/mL Total Protein (6.3-8.2) g/dL Albumin (3.5-5.0) g/dL - EKG Data -: EKG Interpreted by Me EKG shows normal: sinus rhythm When compared to previous EKG there are: no significant change Interpretation: no acute changes - Radiology Data Radiology results: report reviewed Spiculated mass seen in the right upper lobe is similar in size on CT PE study. CT abdomen and pelvis demonstrates no acute findings Disposition Clinical Impression: Acute exacerbation of chronic obstructive airways disease Disposition: ADMITTED IP TO THIS HOSP Condition: Stable Is patient prescribed a controlled substance at d/c from ED?: No Referrals: Jeremy Frankel MD [Primary Care Provider] - 1-2 days Time of Disposition: 22:00 Decision to Admit Reason: Admit from EC
[2018-12-09] MEDS ORDERED: methylPREDNISolone SOD SUCCI 40 MG/ML 1 ML VIAL IV SCH
[2018-12-09 01:21] VITALS: RESP 18
[2018-12-09] MEDS: IPRATROPIUM-ALBUTEROL 3 ML NEB INHALATION SCH ×3 (04:44→10:59)
[2018-12-09] MEDS ORDERED: NITROGLYCERIN SL TABS 0.4 MG TAB SUBLINGUAL PRN (06:11)
[2018-12-09 06:37] LABS: Glucose,Whole Blood 164 mg/dL (75-99)
[2018-12-09] MEDS ORDERED: FUROSEMIDE 10 MG/ML 4 ML VIAL IV SCH (09:00)
[2018-12-09] MEDS ORDERED: METOPROLOL TARTRATE 12.5 MG TAB PO SCH (09:00)
[2018-12-09] MEDS ORDERED: EZETIMIBE 10 MG TAB PO SCH (09:00)
[2018-12-09] MEDS ORDERED: ATORVASTATIN 10 MG TAB PO SCH (09:00)
[2018-12-09] MEDS ORDERED: ISOSORBIDE MONONITRATE ER 30 MG TAB.ER.24H PO SCH (09:00)
[2018-12-09] MEDS ORDERED: ASPIRIN 81 MG PO SCH (09:00)
[2018-12-09] MEDS ORDERED: PANTOPRAZOLE 40 MG TABLET PO SCH (09:00)
[2018-12-09] MEDS ORDERED: LISINOPRIL 10 MG TAB PO SCH (09:00)
[2018-12-09] MEDS ORDERED: HYDROcodone/APAP 5-325MG 1 EACH TAB PO PRN (09:27)
[2018-12-09 11:26] VITALS: BMI 17.2
[2018-12-09 11:52] LABS: Glucose,Whole Blood 216 mg/dL (75-99)
[2018-12-09 11:57] VITALS: BP 159/95; PULSE 62; TEMP 98.4
[2018-12-09] MEDS ORDERED: MULTIVITAMINS, THERA 1 EACH TAB PO SCH (12:00)
[2018-12-09] MEDS ORDERED: metFORMIN 500 MG TAB PO SCH (21:00)
--- NOTE | 2018-12-09 22:51 | HP ---
HISTORY AND PHYSICAL CHIEF COMPLAINT: Shortness of breath. HISTORY OF PRESENT ILLNESS: This is an 88-year-old gentleman who was admitted to the hospital per the emergency room physician's impression that the patient was having unstable angina pectoris. The patient had presented to the emergency room with complaints of shortness of breath. The patient was evaluated by the ER physician, including a chest CTA and CT scan of the abdomen and pelvis, and then due to the marginal troponin of 0.039, the patient was admitted to the hospital for observation. The patient had atypical chest pain. The patient's pain is mostly in the lower rib area, which worsens with his movements. The patient, however, is also noted to have a significantly elevated BNP. The patient's BNP was 13,400. The patient at the time of my evaluation is fairly stable. The patient denied any chest pain suggestive of angina. He has had no orthopnea or PND. He does have some dyspnea on exertion. Since his BNP is elevated and he has some edema at the ankles, the patient was given Lasix . The patient was re-evaluated again at noon time after initial evaluation at 8:00 in the morning. The patient with diuresis had significantly improved breathing. The patient in view of this was discharged home to follow up as an outpatient. PAST MEDICAL HISTORY: Past medical history is primarily significant for a history of COPD, coronary artery disease with a previous myocardial infarction back in 1992. He had a PTCA at the time of the right coronary artery. He had an inferior wall KS. Back in 1992 he had aortic aneurysm surgery, and following that he had significant embolization to lower extremities and feet. He had significant ischemic pain which has subsequently resolved. He did not have any limb loss or loss of the toes. In 2001 patient's symptoms mostly anxiety-related. He does have a history of gastroesophageal reflux disease, recent flareup, and he was not able to eat much. He has subsequently with treatment improved and he is back eating well. He has chronic back pain. He has had a previous compression fracture of the lumbar spine and has chronic pain there. He does take Kennan on a regular basis. He has chronic anxiety, on Ativan. The patient has a history of diabetes mellitus, on medical therapy. No history of rheumatic fever or CVA. No history of malignancy. However, he has a pulmonary spiculated nodule which has been present for a while, at least a couple of years, and has not really changed much. The patient has previously desired not to have any intervention done to that. PAST SURGICAL HISTORY: Significant for tonsillectomy, bilateral inguinal herniorrhaphy and abdominal aortic aneurysm repair. PERSONAL HISTORY: Patient is a smoker and still smokes at present. He has been a smoker for the past 50+ years. Alcohol -- generally one drink a day. ALLERGIES: NONE KNOWN. MEDICATIONS: Include: 1. Ativan 1 mg t.i.d. p.r.n. 2. Kennan 5/325 one t.i.d. 3. Metformin 500 mg daily. 4. Sublingual nitroglycerin p.r.n. 5. Multivitamin daily. 6. Metoprolol tartrate 12.5 mg daily. 7. Aspirin 81 mg daily. 8. Omeprazole 20 mg daily. 9. Imdur 30 mg daily. 10.Vytorin 10/20 one daily. 11.Enalapril 5 mg daily. SOCIAL HISTORY: Patient is , lives at home with a daughter. FAMILY MEDICAL HISTORY: Father at the age of 76. He had carcinoma of the lung. Mother at the age of 72. She had hypertension and CVA. Patient had 2 sisters, both , one at the age of 60 with myocardial infarction. The other at the age 68. She had diabetes mellitus, peripheral arterial disease. Patient has 4 children, 3 daughters and 1 son. One son of an acute myocardial infarction at 51 years of age. He also had a history of lymphoma. REVIEW OF SYSTEMS: NEURO: Denies any headaches, dizziness. No double vision or blurred vision. No symptoms of TIA or syncope or seizures. PSYCH: No anxiety, depression. CARDIAC: No chest pain, angina, palpitations. Patient has atypical chest pain. RESPIRATORY: Shortness of breath. Minimal chronic cough. No hemoptysis. GI: No nausea, vomiting, abdominal pain, diarrhea, constipation. : No symptoms of dysuria, hematuria. EXTREMITIES: Chronic edema at the ankles. NEUROLOGICAL: Awake, alert, oriented with well-coordinated movements. LABORATORY ASSESSMENT: CBC is normal. PT, PTT normal. Electrolytes normal. Renal function normal. Glucose 130 random. Troponin 0.039; repeated this morning 0.034. BNP is 13,400. As mentioned above, patient did not have a chest x-ray; only a CT scan of the chest. CT scan showed right upper lobe 2 cm spiculated bronchogenic mass; since August no change. ASSESSMENT: 1. Shortness of breath secondary to congestive cardiac failure secondary to diastolic dysfunction. 2. Chronic obstructive pulmonary disease. 3. Stable coronary artery disease. 4. Atypical chest pain. 5. Spiculated lung mass with no change. 6. Cachexia. PLAN: The patient is stable. Continue present medical regimen. Patient's condition was discussed with the patient. Patient is diuresed, with help. In view of this, he will be discharged home. We will re-evaluate the patient in 2 days in the office. Patient's condition was discussed with the patient. Prognosis guarded. MMODL / MERCYN: [id number] /
== END 2018-12-09 15:10 | disposition home or self-care (01) ==
LOC: EC 16:41 → 1SOBS 21:37
PROVIDERS: ADMIT Internal Medicine; ATTEND Internal Medicine
DX: I11.0 Hypertensive heart disease with heart failure (principal); I50.9 Heart failure, unspecified; J44.1 Chronic obstructive pulmonary disease with (acute) exacerbation; I25.10 Atherosclerotic heart disease of native coronary artery without angina pectoris; R63.4 Abnormal weight loss; E11.9 Type 2 diabetes mellitus without complications; I10 Essential (primary) hypertension; E78.5 Hyperlipidemia, unspecified; F41.9 Anxiety disorder, unspecified; R41.3 Other amnesia; R77.8 Other specified abnormalities of plasma proteins; R60.9 Edema, unspecified; R91.8 Other nonspecific abnormal finding of lung field; H91.90 Unspecified hearing loss, unspecified ear; I38 Endocarditis, valve unspecified; I25.2 Old myocardial infarction; K21.9 Gastro-esophageal reflux disease without esophagitis; G89.29 Other chronic pain; M54.9 Dorsalgia, unspecified; F17.200 Nicotine dependence, unspecified, uncomplicated; Z79.84 Long term (current) use of oral hypoglycemic drugs; Z79.899 Other long term (current) drug therapy; Z79.82 Long term (current) use of aspirin; Z98.61 Coronary angioplasty status; Z86.718 Personal history of other venous thrombosis and embolism; Z80.9 Family history of malignant neoplasm, unspecified; Z80.1 Family history of malignant neoplasm of trachea, bronchus and lung; Z82.3 Family history of stroke
CPT/HCPCS: 96375 ×2; 96374; 99285; 36415; 94640 ×4; 93005; 83880; 80053; 84484 ×2; 85025; 85610; 85730; 71275; 74177; G0378 ×2; J1940; J2930; J2270; Q9967

== ENCOUNTER 2018-12-22 22:59 | Inpatient (IN) | payer MEDICARE, OTHER ==
[2018-12-22] MEDS ORDERED: SODIUM CHLORIDE 0.9% 1,000 ML IV STA (23:23)
[2018-12-23] MEDS ORDERED: LORazepam 1 MG TAB PO STA (00:05)
--- NOTE | 2018-12-23 00:15 | ED ---
Abdominal Pain HPI - General Chief Complaint: Abdominal Pain Stated Complaint: Abd pain Time Seen by Provider: 12/22/18 23:15 Source: patient, EMS Mode of arrival: EMS Limitations: no limitations - History of Present Illness Initial Comments: This 88-year-old white male presents with a complaint of some diffuse abdominal pain with slight worsening in the left lower quadrant. He states that it came on this afternoon. He denies any nausea, vomiting, diarrhea, constipation, chest pain, shortness of breath. He also complains of pain to his bilateral arms which is not reproducible. He denies any other complaints or modifying factors. There is no fevers or chills. He states that he took his [place] approximately 3 hours ago and currently is in no significant pain and refuses any pain medications here. He states that he forgot to take his Ativan this evening and is requesting that. - Related Data Home Medications Medication Instructions Recorded Confirmed Enalapril [Vasotec] 5 mg PO DAILY 07/03/14 12/22/18 Ezetimibe/Simvastatin [Vytorin 1 tab PO DAILY 07/03/14 12/22/18 10-20 mg Tablet] LORazepam [Ativan] 1 mg PO TID PRN 07/03/14 12/22/18 Metoprolol Tartrate [Lopressor] 12.5 mg PO DAILY 07/03/14 12/22/18 Multivitamins, Thera [Multivitamin 1 tab PO DAILY 02/13/15 12/22/18 (formulary)] HYDROcodone/APAP 5-325MG [[place] 1 tab PO TID PRN 02/10/18 12/22/18 5-325] Omeprazole 20 mg PO DAILY 12/08/18 12/22/18 metFORMIN HCL ER [Glucophage Xr] 500 mg PO HS 12/08/18 12/22/18 Previous Rx's Medication Instructions Recorded Aspirin EC [Ecotrin Low Dose] 81 mg PO BID tablet. 02/16/15 Isosorbide Mononitrate ER [Imdur] 30 mg PO DAILY tab.er.24h 02/16/15 Nitroglycerin Sl Tabs [Nitrostat] 0.4 mg SUBLINGUAL Q5M PRN #0 tab 02/16/15 Allergies Allergy/AdvReac Type Severity Reaction Status Date / Time No Known Allergies Allergy Verified 04/02/19 23:11 Review of Systems ROS Statement: Those systems with pertinent positive or pertinent negative responses have been documented in the HPI. ROS Other: All systems not noted in ROS Statement are negative. Past Medical History Past Medical History: COPD, Diabetes Mellitus, Hyperlipidemia, Hypertension, Memory Impairment Additional Past Medical History / Comment(s): Hard of Hearing History of Any Multi-Drug Resistant Organisms: None Reported Past Surgical History: Hernia Repair, Orthopedic Surgery Additional Past Surgical History / Comment(s): Triple A repair, heart valve repair, Past Anesthesia/Blood Transfusion Reactions: No Reported Reaction Past Psychological History: Anxiety Smoking Status: Current every day smoker Past Alcohol Use History: Occasional Past Drug Use History: None Reported - Past Family History Father Family Medical History: Cancer Mother Family Medical History: CVA/TIA General Exam - General Exam Comments Initial Comments: GENERAL: The patient is well nourished and well hydrated. VITAL SIGNS: Heart rate, blood pressure, respiratory rate reviewed as recorded in nurse's notes. EYES: Pupils are round and reactive. Extraocular movements are intact. No conjunctival / lid redness or swelling. ENT: No external evidence of injury, swelling, or ecchymosis. Airway is patent. Throat is clear. NECK: Nontender. No swelling or evidence of injury. No subcutaneous emphysema. Trachea is midline. No thyroid mass. HEART: Regular rate and rhythm. Good peripheral pulses. LUNGS/CHEST: Breath sounds clear and equal bilaterally. No rales, rhonchi, or wheezes. No ecchymosis, subcutaneous emphysema, or tenderness. ABDOMEN: There is mild tenderness present diffusely throughout the abdomen worse in the left lower quadrant. No palpable masses or organomegaly. No peritoneal signs. No abdominal wall swelling or ecchymosis. EXTREMITIES: No extremity tenderness. Normal muscle tone and function. No thoracolumbar tenderness. NEUROLOGIC: Sensation is grossly intact. Cranial nerve exam reveals face is symmetrical, tongue is midline, speech is clear. SKIN: No abrasions or ecchymosis is noted. No induration or masses noted. PSYCHIATRIC: Alert and oriented. Appropriate behavior and judgment. Limitations: no limitations Course Vital Signs 12/22/18 23:00 Temperature 98.9 F Pulse Rate 81 Respiratory 16 Rate Blood Pressure 161/104 O2 Sat by Pulse 95 Oximetry Medical Decision Making - Medical Decision Making The patient was seen and examined. All diagnostics were reviewed. The patient was placed on the clinical research monitor and no ectopy is identified. The EKG shows a sinus tachycardia at a rate of 105. There is evidence of a left bundle branch block. There is occasional PVC noted. There is some T-wave abnormalities in 1 and aVL. The UT intervals 180, QRS duration is 120, and the QTC intervals 470. The patient refuses any pain medications but did not appear to be in any distress. Computed tomography scan of the abdomen and pelvis is ordered and further care will be passed off to Dr. Unger. - Lab Data Result diagrams: 12/22/18 23:50 12/22/18 23:50 Lab Results 12/22/18 12/22/18 12/22/18 Range/Units 23:50 23:50 23:50 WBC 8.2 (3.8-10.6) k/uL RBC 4.60 (4.30-5.90) m/uL Hgb 13.8 (13.0-17.5) gm/dL Hct 43.6 (39.0-53.0) % MCV 94.8 (80.0-100.0) fL MCH 29.9 (25.0-35.0) pg MCHC 31.6 (31.0-37.0) g/dL RDW 14.7 (11.5-15.5) % Plt Count 243 (150-450) k/uL Neutrophils % 61 % Lymphocytes % 26 % Monocytes % 8 % Eosinophils % 1 % Basophils % 0 % Neutrophils # 5.0 (1.3-7.7) k/uL Lymphocytes # 2.2 (1.0-4.8) k/uL Monocytes # 0.7 (0-1.0) k/uL Eosinophils # 0.1 (0-0.7) k/uL Basophils # 0.0 (0-0.2) k/uL PT 10.6 (9.0-12.0) sec INR 1.0 (<1.2) APTT 25.1 (22.0-30.0) sec Sodium 140 (137-145) mmol/L Potassium 4.9 (3.5-5.1) mmol/L Chloride 107 (98-107) mmol/L Carbon Dioxide 29 (22-30) mmol/L Anion Gap 4 mmol/L BUN 25 H (9-20) mg/dL Creatinine 0.87 (0.66-1.25) mg/dL Est GFR (CKD-EPI)AfAm >90 (>60 ml/min/1.73 sqM) Est GFR (CKD-EPI)NonAf 78 (>60 ml/min/1.73 sqM) Glucose 121 H (74-99) mg/dL Calcium 9.4 (8.4-10.2) mg/dL Total Bilirubin 0.6 (0.2-1.3) mg/dL AST 37 (17-59) U/L ALT 61 (21-72) U/L Alkaline Phosphatase 105 (38-126) U/L Troponin I (0.000-0.034) ng/mL Total Protein 5.9 L (6.3-8.2) g/dL Albumin 3.4 L (3.5-5.0) g/dL Amylase 38 (30-110) U/L Lipase 12 L (23-300) U/L Urine Color Urine Appearance (Clear) Urine pH (5.0-8.0) Ur Specific [place] (1.001-1.035) Urine Protein (Negative) Urine Glucose (UA) (Negative) Urine Ketones (Negative) Urine Blood (Negative) Urine Nitrite (Negative) Urine Bilirubin (Negative) Urine Urobilinogen (<2.0) mg/dL Ur Leukocyte Esterase (Negative) 12/22/18 12/23/18 Range/Units 23:50 00:13 WBC (3.8-10.6) k/uL RBC (4.30-5.90) m/uL Hgb (13.0-17.5) gm/dL Hct (39.0-53.0) % MCV (80.0-100.0) fL MCH (25.0-35.0) pg MCHC (31.0-37.0) g/dL RDW (11.5-15.5) % Plt Count (150-450) k/uL Neutrophils % % Lymphocytes % % Monocytes % % Eosinophils % % Basophils % % Neutrophils # (1.3-7.7) k/uL Lymphocytes # (1.0-4.8) k/uL Monocytes # (0-1.0) k/uL Eosinophils # (0-0.7) k/uL Basophils # (0-0.2) k/uL PT (9.0-12.0) sec INR (<1.2) APTT (22.0-30.0) sec Sodium (137-145) mmol/L Potassium (3.5-5.1) mmol/L Chloride (98-107) mmol/L Carbon Dioxide (22-30) mmol/L Anion Gap mmol/L BUN (9-20) mg/dL Creatinine (0.66-1.25) mg/dL Est GFR (CKD-EPI)AfAm (>60 ml/min/1.73 sqM) Est GFR (CKD-EPI)NonAf (>60 ml/min/1.73 sqM) Glucose (74-99) mg/dL Calcium (8.4-10.2) mg/dL Total Bilirubin (0.2-1.3) mg/dL AST (17-59) U/L ALT (21-72) U/L Alkaline Phosphatase (38-126) U/L Troponin I 0.032 (0.000-0.034) ng/mL Total Protein (6.3-8.2) g/dL Albumin (3.5-5.0) g/dL Amylase (30-110) U/L Lipase (23-300) U/L Urine Color Yellow Urine Appearance Clear (Clear) Urine pH 7.0 (5.0-8.0) Ur Specific [place] 1.019 (1.001-1.035) Urine Protein Trace H (Negative) Urine Glucose (UA) Negative (Negative) Urine Ketones Negative (Negative) Urine Blood Negative (Negative) Urine Nitrite Negative (Negative) Urine Bilirubin Negative (Negative) Urine Urobilinogen <2.0 (<2.0) mg/dL Ur Leukocyte Esterase Negative (Negative) Disposition Clinical Impression: Abdominal pain, Bilateral arm pain, Hypertension Disposition: HOME SELF-CARE Condition: Fair Is patient prescribed a controlled substance at d/c from ED?: No Referrals: Jeremy Frankel MD [Primary Care Provider] - 1-2 days Time of Disposition: 01:18
[2018-12-23 00:16] LABS: Basophils % (A) 0 %; Eosinophils # (A) 0.1 k/uL (0-0.7); Eosinophils % (A) 1 %; HCT 43.6 % (39.0-53.0); HGB 13.8 gm/dL (13.0-17.5); Lymphocytes # (A) 2.2 k/uL (1.0-4.8); Lymphocytes % (A) 26 %; MCH 29.9 pg (25.0-35.0); MCHC 31.6 g/dL (31.0-37.0); MCV 94.8 fL (80.0-100.0); Mean Platelet Volume 8.1; Monocytes # (A) 0.7 k/uL (0-1.0); Monocytes % (A) 8 %; Neutrophils % (A) 61 %; Platelet Count 243 k/uL (150-450); RDW 14.7 % (11.5-15.5); WBC 8.2 k/uL (3.8-10.6)
[2018-12-23 00:26] LABS: ALT 61 U/L (21-72); AST 37 U/L (17-59); Albumin 3.4 g/dL (3.5-5.0); Alkaline Phosphatase 105 U/L (38-126); Amylase 38 U/L (30-110); Anion Gap 4 mmol/L; Blood Urea Nitrogen 25 mg/dL (9-20); Calcium 9.4 mg/dL (8.4-10.2); Carbon Dioxide 29 mmol/L (22-30); Chloride 107 mmol/L (98-107); Glucose 121 mg/dL (74-99); Lipase 12 U/L (23-300); Potassium 4.9 mmol/L (3.5-5.1); Sodium 140 mmol/L (137-145); Total Bilirubin 0.6 mg/dL (0.2-1.3); Total Protein 5.9 g/dL (6.3-8.2)
[2018-12-23 00:31] LABS: Partial Thromboplastin Time 25.1 sec (22.0-30.0); Prothrombin Time 10.6 sec (9.0-12.0)
[2018-12-23 00:39] LABS: Appearance,Urine Clear (Clear); Bilirubin,Urine Negative (Negative); Blood,Urine Negative (Negative); Color,Urine Yellow; Glucose,Urine (UA) Negative (Negative); Ketones,Urine Negative (Negative); Leukocyte Esterase,Urine Negative (Negative); Nitrite,Urine Negative (Negative); Protein,Urine Trace (Negative); Specific Gravity,Urine 1.019 (1.001-1.035); Urobilinogen,Urine <2.0 mg/dL (<2.0)
--- NOTE | 2018-12-23 01:55 | CT ---
EXAM: CT Abdomen and Pelvis With Intravenous Contrast CLINICAL HISTORY: ITS.REASON CT Reason: abdominal pain TECHNIQUE: Axial computed tomography images of the abdomen and pelvis with intravenous contrast. CTDI is 5.1 mGy and DLP is 468.6 mGy-cm. This CT exam was performed using one or more of the following dose reduction techniques: automated exposure control, adjustment of the mA and/or kV according to patient size, and/or use of iterative reconstruction technique. COMPARISON: 12/08/18. FINDINGS: Cardiomegaly with extensive coronary atherosclerosis. Markedly distended left ventricle. Extensive coronary atherosclerosis. Right greater than left basilar interstitial and airspace opacities have increased in the interval. These could be infectious, though would also consider edema given cardiac findings and trace pleural fluid. Extensively calcified pancreas suggesting sequela of chronic pancreatitis. No definite evidence of acute pancreatitis, though sensitivity is diminished due to diffuse edema/anasarca. Hepatic venous reflux suggesting right heart dysfunction. No hepatic mass. Renal scarring without obstruction. Thickened distal colon, lack of distention versus colitis. Numerous diverticula. No clear small bowel or other obstruction. Appendix is not identified. Extensive aortoiliac atherosclerosis. Bypass graft supplies the femoral arteries. This is patent bilaterally, but there is multifocal femoral stenosis. 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 This is unchanged as well. There are stable vertebral compression fracture deformities at T10, T11, T12, L1, L2, L4, and L5. No acute fracture is identified. IMPRESSION: Basilar interstitial and airspace infiltrates. Favor edema given cardiomegaly and pleural fluid. Infection is not excluded. Thickened distal colon, lack of distention versus colitis. No perforation. Patent external iliac artery bypass graft. Sequela of chronic pancreatitis. Diffuse edema/anasarca. Other incidental findings as detailed above.
[2018-12-23] MEDS ORDERED: HYDROcodone/APAP 5-325MG 1 EACH TAB PO STA (02:28)
[2018-12-23] MEDS ORDERED: ALBUTEROL NEBULIZED 2.5 MG/3 ML INHALATION STA (03:00)
[2018-12-23] MEDS ORDERED: NITROGLYCERIN OINT 1 INCH/GM PACKET TOPICAL STA (03:02)
[2018-12-23] MEDS ORDERED: NITROGLYCERIN SL TABS 0.4 MG TAB SUBLINGUAL STA (03:02)
--- NOTE | 2018-12-23 03:47 | XR ---
EXAM: XR Chest, 1 View CLINICAL HISTORY: ITS.REASON XR Reason: Pain TECHNIQUE: Frontal view of the chest. COMPARISON: CT chest on 12/08/2018 FINDINGS: Hardware: None. Lungs/pleura: Airspace opacities and right greater than left lungs. Small bilateral pleural effusions. Heart/mediastinum: Enlargement of the cardiac silhouette. Atherosclerotic calcifications in the aorta. Prosthetic heart valve. Soft tissues: Unremarkable. Bones: No acute fracture. Possible resection changes of the distal right clavicle. Degenerative changes of the left acromioclavicular joint. Upper abdomen: Normal. IMPRESSION: 1. Airspace opacities throughout right greater than left lungs may represent asymmetric pulmonary edema versus infectious/inflammatory process. Small bilateral pleural effusions. 2. Enlargement of the cardiac silhouette.
[2018-12-23] MEDS: FUROSEMIDE 10 MG/ML 4 ML VIAL IV SCH ×2 (06:44→17:11)
[2018-12-23] MEDS ORDERED: ENALAPRILAT 1.25 MG/ML 1 ML VIAL IVP PRN ×2 (07:30→07:34)
[2018-12-23] MEDS ORDERED: NITROGLYCERIN OINT 1 INCH/GM PACKET TOPICAL SCH (09:00)
--- NOTE | 2018-12-23 11:09 | ECHOF ---
Referral Reason:dyspnea MEASUREMENTS -------- HEIGHT: 172.7 cm WEIGHT: 49.9 kg BP: IVSd: 1.3 cm (0.6 - 1.1) LVIDd: 6.8 cm (3.9 - 5.3) LVPWd: 1.1 cm (0.6 - 1.1) IVSs: 7.2 cm LVIDs: 1.0 cm LVPWs: 0.1 cm LA Diam: 5.2 cm (2.7 - 3.8) LAESV Index (A-L): 56.64 ml/m MV EXCURSION: 14.577 mm (> 18.000) MV EF SLOPE: 25 mm/s (70 - 150) EPSS: 3.3 cm MV E Howard: 0.44 m/s MV DecT: 241 ms MV A Howard: 0.59 m/s MV E/A Ratio: 0.75 RAP: 15.00 mmHg RVSP: 48.84 mmHg FINDINGS -------- Sinus rhythm. This was a technically good study. The left ventricle is mildly dilated. There is severe global hypokinesis of LV . Overall left hakeem tricular systolic function is severely impaired with, an EF < 20%. The right ventricle is normal in size. The left atrium is markedly dilated. LA is severely dilated >40 ml/m2 The right atrial size is normal. There is mild aortic valve sclerosis. There is no evidence of aortic regurgitation. The mitral valve leaflets are mildly thickened. Mild mitral annular calcification present. Mild-t o-moderate mitral regurgitation is present. Mild tricuspid regurgitation present. There is moderate pulmonary hypertension. The right ventric ular systolic pressure, as measured by Doppler, is 48.84mmHg. Trace/mild (physiologic) pulmonic regurgitation. The aortic root size is normal. There is no pericardial effusion. CONCLUSIONS -------- 1. The left ventricle is mildly dilated. 2. There is severe global hypokinesis of LV . 3. Overall left ventricular systolic function is severely impaired with, an EF < 20%. 4. The right ventricle is normal in size. 5. The left atrium is markedly dilated. 6. LA is severely dilated >40 ml/m2 7. The right atrial size is normal. 8. There is mild aortic valve sclerosis. 9. The mitral valve leaflets are mildly thickened. 10. Mild mitral annular calcification present. 11. Evzh-hj-gcyklupt mitral regurgitation is present. 12. Mild tricuspid regurgitation present. 13. There is moderate pulmonary hypertension. 14. The right ventricular systolic pressure, as measured by Doppler, is 48.84mmHg. 15. Trace/mild (physiologic) pulmonic regurgitation. 16. The aortic root size is normal. 17. There is no pericardial effusion. BLUEPRINT CUTTER: Guera Queen RDCS
[2018-12-23] MEDS ORDERED: HYDROcodone/APAP 5-325MG 1 EACH TAB PO PRN (12:24)
[2018-12-23] MEDS ORDERED: ARTIFICIAL TEARS-HYPROMELLOSE DROPS 15 ML BTL BOTH EYES PRN (14:09)
[2018-12-23] MEDS: ISOSORBIDE MONONITRATE ER 30 MG TAB.ER.24H PO SCH (14:13)
[2018-12-23] MEDS: METOPROLOL TARTRATE 12.5 MG TAB PO SCH (14:13)
[2018-12-23] MEDS: LIDOCAINE 5% PATCH TOPICAL SCH (14:13)
[2018-12-23] MEDS: PANTOPRAZOLE 40 MG TABLET PO SCH (14:13)
[2018-12-23] MEDS: LORazepam 1 MG TAB PO SCH ×2 (15:17→20:56)
[2018-12-23] MEDS: NITROGLYCERIN SL TABS 0.4 MG TAB SUBLINGUAL PRN ×2 (15:27→15:47)
[2018-12-23] MEDS ORDERED: HEPARIN SODIUM,PORCINE 5,000 UNIT/ML 1 ML VIAL IV ONE (15:28)
--- NOTE | 2018-12-23 15:29 | P.CRDCN ---
History of Present Illness Consult date: 12/23/18 Requesting physician: Jeremy Frankel Consult reason: congestive heart failure Chief complaint: Bilateral arm discomfort, shortness of breath History of present illness: This is a pleasant 88-year-old gentleman who follows regularly with Dr. Guerra in the office. 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 According to the patient, he had been to the hospital around December 09 with symptoms of shortness of breath and associated discomfort in the chest. He was discharged home to follow-up with Dr. Frankel in the office 2 days following that. He presents to the hospital on this occasion with symptoms of abdominal discomfort in the left lower quadrant, patient also states that he had discomfort in his forearms on both arms, and was quite short of breath. EKG on arrival here showed a sinus tachycardia with occasional PVCs, incomplete left bundle branch block pattern and nonspecific ST-T wave changes. Chest x-ray showed air space obesity is representing pulmonary edema with small bilateral effusions. An echocardiogram with Doppler study was performed which revealed severe global hypokinesia, ejection fraction less than 20%, LA severely dilated, mild to moderate MR, moderate pulmonary hypertension. Blood pressure 140/80 with a heart rate in the 80s, 98% on 3 L of oxygen. White blood cell count 8.2, hemoglobin 13.8, platelet count 243. Sodium 140, potassium 4.9, BUN 25 and creatinine 0.8. Initial troponin on presentation here 0.032, subsequent troponin 0.288. BNP level 8460. Influenza A and B-. Past Medical History Past Medical History: COPD, Diabetes Mellitus, Hyperlipidemia, Hypertension, Memory Impairment Additional Past Medical History / Comment(s): Hard of Hearing History of Any Multi-Drug Resistant Organisms: None Reported Past Surgical History: Hernia Repair, Orthopedic Surgery Additional Past Surgical History / Comment(s): Triple A repair, heart valve repair. Past Anesthesia/Blood Transfusion Reactions: No Reported Reaction Past Psychological History: Anxiety Smoking Status: Current every day smoker Past Alcohol Use History: Occasional Additional Past Alcohol Use History / Comment(s): Pt. states that he smokes about 8 cigarettes per day. Past Drug Use History: None Reported - Past Family History Father Family Medical History: Cancer Mother Family Medical History: CVA/TIA Medications and Allergies Home Medications Medication Instructions Recorded Confirmed Type Enalapril [Vasotec] 5 mg PO DAILY 07/03/14 12/22/18 History Ezetimibe/Simvastatin [Vytorin 1 tab PO DAILY 07/03/14 12/22/18 History 10-20 mg Tablet] LORazepam [Ativan] 1 mg PO TID PRN 07/03/14 12/23/18 History Metoprolol Tartrate [Lopressor] 12.5 mg PO DAILY 07/03/14 12/22/18 History Multivitamins, Thera [Multivitamin 1 tab PO DAILY 02/13/15 12/22/18 History (formulary)] Aspirin EC [Ecotrin Low Dose] 81 mg PO BID tablet. 02/16/15 12/22/18 Rx Isosorbide Mononitrate ER [Imdur] 30 mg PO DAILY tab.er.24h 02/16/15 12/22/18 Rx Nitroglycerin Sl Tabs [Nitrostat] 0.4 mg SUBLINGUAL Q5M PRN #0 tab 02/16/15 12/22/18 Rx HYDROcodone/APAP 5-325MG [Wallace 1 tab PO TID PRN 02/10/18 12/23/18 History 5-325] Omeprazole 20 mg PO DAILY 12/08/18 12/22/18 History metFORMIN HCL ER [Glucophage Xr] 500 mg PO HS 12/08/18 12/22/18 History Allergies Allergy/AdvReac Type Severity Reaction Status Date / Time No Known Allergies Allergy Verified 12/22/18 23:11 Physical Exam Vitals: Vital Signs Temp Pulse Pulse Resp BP BP Pulse Ox 12/23/18 12:02 97.5 F L 80 18 140/80 98 12/23/18 12:00 61 18 12/23/18 10:48 93 L 12/23/18 10:30 70 26 H 152/86 93 L 12/23/18 10:00 58 L 17 146/89 89 L 12/23/18 09:30 59 L 17 140/81 99 12/23/18 09:00 63 17 148/85 100 12/23/18 08:30 60 17 151/104 98 12/23/18 08:00 79 16 139/80 94 L 12/23/18 07:30 76 16 151/84 100 12/23/18 07:00 75 16 150/95 100 12/23/18 06:00 92 20 135/86 98 12/23/18 05:30 75 20 120/73 98 12/23/18 05:00 81 20 117/71 97 12/23/18 04:30 80 24 124/77 97 12/23/18 04:00 89 24 137/91 96 12/23/18 03:46 94 12/23/18 03:30 102 H 28 H 191/124 78 L 12/23/18 03:00 110 H 28 H 194/123 83 L 12/23/18 02:30 112 H 30 H 176/115 96 12/23/18 02:00 100 25 H 182/108 93 L 12/23/18 01:51 96 24 182/108 96 12/23/18 01:30 105 H 28 H 202/134 94 L 12/23/18 01:00 105 H 27 H 196/144 96 12/23/18 00:30 99 29 H 148/121 96 12/23/18 00:00 84 22 171/116 96 12/22/18 23:30 70 28 H 161/104 91 L 12/22/18 23:00 98.9 F 81 16 161/104 95 Intake and Output 12/23/18 12/23/18 12/23/18 06:59 14:59 22:59 Intake Total 240 Output Total 150 Balance 90 Intake: Oral 240 Output: Urine 150 Other: Voiding Method Urinal # Voids 2 Weight 49.895 kg 48 kg PHYSICAL EXAMINATION: GENERAL: 88-year-old gentleman in no acute distress at the time of my examination HEENT: Head is atraumatic, normocephalic. Pupils equal, round. Sclera anicteric. Conjunctiva are clear. Mucous membranes of the mouth are moist. Neck is supple. There is elevated jugular venous pressure. No carotid bruit is heard. HEART EXAMINATION: Heart S1 S2 1 systolic murmur is heard CHEST EXAMINATION: Lungs reveal diminished air entry bilaterally with rales to the bases. ABDOMEN: Soft, nontender. Bowel sounds are heard. No organomegaly noted. EXTREMITIES: 2+ peripheral pulses with no evidence of peripheral edema and no calf tenderness noted. NEUROLOGIC patient is awake, alert and oriented 3 . Results 12/22/18 23:50 12/22/18 23:50 Cardiac Enzymes 12/22/18 12/22/18 12/23/18 Range/Units 23:50 23:50 11:45 AST 37 (17-59) U/L Troponin I 0.032 0.288 H* (0.000-0.034) ng/mL Coagulation 12/22/18 Range/Units 23:50 PT 10.6 (9.0-12.0) sec APTT 25.1 (22.0-30.0) sec CBC 12/22/18 Range/Units 23:50 WBC 8.2 (3.8-10.6) k/uL RBC 4.60 (4.30-5.90) m/uL Hgb 13.8 (13.0-17.5) gm/dL Hct 43.6 (39.0-53.0) % Plt Count 243 (150-450) k/uL Comprehensive Metabolic Panel 12/22/18 Range/Units 23:50 Sodium 140 (137-145) mmol/L Potassium 4.9 (3.5-5.1) mmol/L Chloride 107 (98-107) mmol/L Carbon Dioxide 29 (22-30) mmol/L BUN 25 H (9-20) mg/dL Creatinine 0.87 (0.66-1.25) mg/dL Glucose 121 H (74-99) mg/dL Calcium 9.4 (8.4-10.2) mg/dL AST 37 (17-59) U/L ALT 61 (21-72) U/L Alkaline Phosphatase 105 (38-126) U/L Total Protein 5.9 L (6.3-8.2) g/dL Albumin 3.4 L (3.5-5.0) g/dL Current Medications Generic Name Dose Route Start Last Admin Trade Name Freq PRN Reason Stop Dose Admin Hydrocodone Bitart/Acetaminophen 1 each 12/23/18 18:00 Wallace 5-325 PO QID PRN Moderate Pain Artificial Tears 1 drops 12/23/18 14:09 Artificial Tear Drops BOTH EYES TID PRN Dry Eye(s) Aspirin 81 mg 12/23/18 21:00 Aspirin PO BID ARTURO Atorvastatin Calcium 10 mg 12/24/18 09:00 Lipitor PO DAILY [facility], [facility]1983 Ezetimibe 10 mg 12/24/18 09:00 Zetia PO DAILY [facility], [facility]–1983 Enalaprilat 1.25 mg 12/23/18 07:34 Vasotec IVP Q6HR PRN Blood Pressure - High Furosemide 40 mg 12/23/18 05:30 12/23/18 06:44 Lasix IV 40 mg Q12H [facility]1983 Administration Isosorbide Mononitrate 30 mg 12/23/18 12:45 12/23/18 14:13 Imdur PO 30 mg DAILY [facility]1983 Administration Lidocaine 1 patch 12/23/18 12:45 12/23/18 14:13 Lidoderm TOPICAL 1 patch DAILY [facility]1983 Administration Lisinopril 10 mg 12/24/18 09:00 Zestril PO DAILY [facility] Lorazepam 1 mg 12/23/18 05:54 Ativan IV Q8H PRN Anxiety Lorazepam 1 mg 12/23/18 16:00 Ativan PO TID [facility] Metformin HCl 250 mg 12/23/18 21:00 Glucophage PO BID [facility]1983 Metoprolol Tartrate 12.5 mg 12/23/18 12:45 12/23/18 14:13 Lopressor PO 12.5 mg DAILY [facility] Administration Multivitamins 1 each 12/24/18 12:00 Theragran PO DAILY@1200 [facility] Nitroglycerin 0.4 mg 12/23/18 12:24 Nitrostat SUBLINGUAL Q5M PRN Chest Pain Pantoprazole Sodium 40 mg 12/23/18 13:00 12/23/18 14:13 Protonix PO 40 mg [id number] [facility] Administration Sodium Chloride 10 ml 12/23/18 09:00 12/23/18 14:18 Saline Flush IV 10 ml BID [facility] Administration Intake and Output 12/23/18 12/23/18 12/23/18 06:59 14:59 22:59 Intake Total 240 Output Total 150 Balance 90 Intake: Oral 240 Output: Urine 150 Other: Voiding Method Urinal # Voids 2 Weight 49.895 kg 48 kg Patient Weight 12/24/18 06:59 Weight 48 kg 12/22/18 23:50 12/22/18 23:50 EKG Interpretations (text) EKG shows normal sinus rhythm with incomplete left bundle branch block pattern and nonspecific ST-T wave changes Assessment and Plan Plan: Assessment and plan #1 acute pulmonary edema, systolic congestive heart failure acute on chronic possibly exacerbated by a non-Q-wave #2 symptoms of bilateral arm discomfort, abnormality in troponin, possible non-Q-wave NM #3 history of inferior wall myocardial infarction in the past with prior PTCA of the right coronary artery #4 hypertension #5 diabetes #6 hyperlipidemia #7 history of aortic aneurysm surgery #8 anxiety #9 ischemic cardiomyopathy documented ejection fraction less than 20%. #10 history of mitral valve replacement with Daniele Kuo valve Plan We will obtain Dr. Michelle progress note from the office. We'll start the p atient on IV heparin as well as IV nitroglycerin drips. Repeat an EKG, continue IV Lasix. Continue baby aspirin as well as metoprolol, lisinopril. I did have a lengthy conversation with the patient and his daughter, it is possible that the patient may have a non-Q-wave NM with subsequent pulmonary edema. She has a sister who is a nurse practitioner, they will discuss things further with her re garding proceeding only with medical therapy or proceeding with cardiac catheterization if necessary. Further recommendations to follow. DNP note has been reviewed, I agree with a documented findings and plan of care. Patient was seen and examined.
[2018-12-23] MEDS: HEPARIN SOD,PORK IN 0.45% NACL 25,000 UNIT in 0.45% NACL 1 250ML.BAG IV SCH (16:02)
[2018-12-23] MEDS: NITROGLYCERIN-D5W PMX 50 MG in DEXTROSE/WATER 1 250ML.BAG IV SCH (16:14)
[2018-12-23 16:20] LABS: Glucose,Whole Blood 127 mg/dL (75-99)
[2018-12-23 16:51] LABS: Basophils % (A) 0 %; Eosinophils # (A) 0.1 k/uL (0-0.7); Eosinophils % (A) 0 %; HCT 41.3 % (39.0-53.0); HGB 13.2 gm/dL (13.0-17.5); Lymphocytes # (A) 1.5 k/uL (1.0-4.8); Lymphocytes % (A) 12 %; MCH 29.9 pg (25.0-35.0); MCHC 31.9 g/dL (31.0-37.0); MCV 93.8 fL (80.0-100.0); Mean Platelet Volume 8.2; Monocytes # (A) 0.7 k/uL (0-1.0); Monocytes % (A) 6 %; Neutrophils # (A) 9.6 k/uL (1.3-7.7); Neutrophils % (A) 79 %; Platelet Count 244 k/uL (150-450); RBC 4.41 m/uL (4.30-5.90); RDW 14.8 % (11.5-15.5); WBC 12.1 k/uL (3.8-10.6)
[2018-12-23 17:13] LABS: INR 1.1 (<1.2); Partial Thromboplastin Time 93.4 sec (22.0-30.0); Prothrombin Time 11.8 sec (9.0-12.0)
[2018-12-23] MEDS: HYDROcodone/APAP 5-325MG 1 EACH TAB PO PRN (18:30)
[2018-12-23] MEDS: metFORMIN 500 MG TAB PO SCH (20:56)
[2018-12-23] MEDS ORDERED: ASPIRIN 81 MG PO SCH (21:00)
[2018-12-23] MEDS ORDERED: METOPROLOL TARTRATE 12.5 MG TAB PO STA (21:49)
[2018-12-23] MEDS ORDERED: DEXTROSE 5% IN WATER 100 ML with AMIODARONE 300 MG IV ONE (22:00)
[2018-12-23] MEDS ORDERED: DEXTROSE 5% IN WATER 250 ML with AMIODARONE 300 MG IV ONE (22:00)
[2018-12-24] MEDS ORDERED: AMIODARONE 360 MG in DEXTROSE 5% IN WATER 200 ML IV ONE ×2
[2018-12-24] MEDS: HEPARIN SODIUM,PORCINE 5,000 UNIT/ML 1 ML VIAL IV PRN (00:04)
[2018-12-24] MEDS: HYDROcodone/APAP 5-325MG 1 EACH TAB PO PRN ×4 (00:05→18:05)
[2018-12-24] MEDS: LORazepam 2 MG/ML INJ IV PRN ×3 (03:24→20:25)
--- NOTE | 2018-12-24 05:20 | HP ---
HISTORY AND PHYSICAL CHIEF COMPLAINT: Shortness of breath. HISTORY OF PRESENT ILLNESS: This 88-year-old gentleman presents to the emergency room by ambulance because of a complaint of lower abdominal pain as well as pain down both his arms. The patient presents to the emergency room. He is evaluated by the ER physician with CAT scans of the abdomen, etc. Subsequently the patient got more short of breath and was noted to be in pulmonary edema. The patient is given BiPAP and diuretics with help. The patient's initial troponins were negative. Patient's EKG has incomplete left bundle branch block and no acute ST-T changes. The patient has a known history of coronary artery disease. The patient also has a history of COPD. He has a pulmonary nodule which is being followed with no intervention. The patient and family is aware of this and the choice is because of patient's age and health, not to pursue that. The patient denied any chest pain. This evening patient was re-evaluated and feels much better. The patient symptoms are suggestive more of a cardiac event. Patient has chronic cough but denies any other symptoms. PAST MEDICAL HISTORY: Past medical history is significant for COPD, coronary artery disease with previous myocardial infarction, history of abdominal aortic aneurysm repair, history of diabetes mellitus, COPD. The patient had myocardial infarction back in 1992 and PTCA at that time of the right coronary artery. Had an inferior wall NH. Back in 1992 he had aortic aneurysm surgery, and following that he had significant embolization in his lower extremities and feet. He had significant ischemic pain, which has subsequently resolved. He did not have any limb loss. The patient was admitted with symptoms of TIA, however, it was felt to be mostly anxiety related. This was back in 2001. He does have a history of gastroesophageal reflux and he had a recent significant flare up and was having difficulty eating, however, that is resolved. He has chronic back pain with history of previous compression fracture of the lower thoracic lumbar spine area. Has chronic pain with that. He takes [place] on a regular basis. Also uses lidocaine patches. The patient has history of chronic anxiety, history of diabetes mellitus on medical therapy. There has been no history of any rheumatic fever, CVA, malignancy. Spiculated pulmonary nodule which has been present for a few years now and has really not changed much. PAST SURGICAL HISTORY: Past surgical history is significant for tonsillectomy, bilateral inguinal herniorrhaphy, abdominal aortic aneurysm repair. PERSONAL HISTORY: The patient is a smoker, still smokes a few cigarettes a day. He has been a smoker for the past 50+ years. Alcohol generally 1 drink a day. ALLERGIES: None known. MEDICATIONS: Medications include: 1. Ativan 1 mg t.i.d. p.r.n. 2. [place] 5/325 one t.i.d. 3. Metformin 500 mg daily. 4. Nitroglycerin sublingual p.r.n. 5. Multivitamins daily. 6. Metoprolol 12.5 daily. 7. Aspirin 81 daily. 8. Omeprazole 20 mg daily. 9. Imdur 30 mg daily. 10.Vytorin 10-20 one daily. 11.Enalapril 5 mg daily. SOCIAL HISTORY: The patient is , lives with his daughter. FAMILY MEDICAL HISTORY: Father at age of 76. He had carcinoma of the lung. Mother at the age of 72. She had hypertension and CVA. The patient had 2 sisters, both , one at the age of 60 with myocardial infarction, the other at the age of 68. She had history of diabetes mellitus, peripheral arterial disease. The patient has 4 children, 3 daughters and 1 son. The one son of an acute myocardial infarction at age 51. Also has a history of lymphoma. REVIEW OF SYSTEMS: NEURO: Denies any headaches, dizziness. No double vision, blurred vision. No symptoms of TIA, syncope, seizures. PSYCH: Some apprehension. CARDIAC: Denies chest pain, angina, palpitations. Patient presented with symptoms of pain going down both arms according to the daughter that is what he told her and then when I interviewed the patient this morning he tells me the pain was only in the left arm. No associated back pain or jaw pain. RESPIRATORY: No shortness of breath. He does have chronic cough. GI: No nausea, vomiting. Does have some lower abdominal pain. No diarrhea or constipation. : No symptoms of dysuria, hematuria. Does have frequency. EXTREMITIES: Denies pain. He is noted to have some edema at the ankles. CONSTITUTIONAL: No fever or chills. PHYSICAL EXAMINATION: Pleasant gentleman at present in no distress, resting comfortably earlier with BiPAP. Patient re-evaluated this evening and he is much more comfortable, breathing with nasal cannula and able to breathe in no distress. Evaluation this morning, patient was afebrile, pulse 75, respirations 16, blood pressure 150/95, pulse ox 100% with BiPAP at 6 L. HEENT: Normocephalic. Neck decreased range of motion. Pupils are reactive. The patient is edentulous. Neck reveals 1+ JVD. No carotid bruits. CHEST EXAMINATION: A few crackles at the bases. Generalized decreased air flow, increased percussion note bilateral. Patient also is kyphotic. CARDIAC: Distant heart sounds S1, S2 with no gallops. Systolic murmur 2/6 at the apex. ABDOMEN: Soft. Bowel sounds normal. No organomegaly. No abdominal bruits. Extremities reveal no edema. Good pulses both upper extremities. Mild decreased pedal pulses and femoral pulses. NEUROLOGICALLY: Awake, alert, oriented x3 with well-coordinated movements. LABORATORY ASSESSMENT: Chest x-ray which suggests CHF. CAT scan confirmatory. Initial troponins negative. Patient's CBC is normal. Pro time is normal. PTT is normal. Electrolytes normal. BUN 25, creatinine 0.87. Random glucose . BNP is elevated at 8460 and troponin 0.032. Urine analysis is unremarkable. Influenza is negative. Repeat troponins positive at 0.288. Patient's EF on echocardiogram reveals 20%. ASSESSMENT: 1. Non-ST elevated myocardial infarction. 2. Ischemic cardiomyopathy. 3. Known coronary artery disease. 4. Chronic obstructive pulmonary disease. 5. Diabetes mellitus. 6. Previous history of abdominal aortic aneurysm repair. 7. Acute congestive cardiac failure secondary to systolic dysfunction. PLAN: The patient is admitted to the hospital on initial BiPAP converted to oxygen by nasal cannula. The patient has diuresed well. This evening the nurse had reported the patient was not able to void easily. He kept on going every 5 minutes and noted to have urinary retention with overflow. Moore catheter is placed. The patient's condition discussed with the patient and daughter. Prognosis remains guarded. Cardiology evaluation is noted. MMODL / IJN: [id number] /
[2018-12-24] MEDS: FUROSEMIDE 10 MG/ML 4 ML VIAL IV SCH ×2 (05:28→18:08)
[2018-12-24] MEDS: PANTOPRAZOLE 40 MG TABLET PO SCH (05:29)
[2018-12-24 07:12] LABS: Basophils % (A) 0 %; Eosinophils # (A) 0.1 k/uL (0-0.7); Eosinophils % (A) 1 %; HCT 44.3 % (39.0-53.0); HGB 14.2 gm/dL (13.0-17.5); Lymphocytes % (A) 21 %; MCH 29.7 pg (25.0-35.0); MCHC 32.1 g/dL (31.0-37.0); MCV 92.5 fL (80.0-100.0); Mean Platelet Volume 8.6; Monocytes # (A) 0.7 k/uL (0-1.0); Monocytes % (A) 7 %; Neutrophils # (A) 6.7 k/uL (1.3-7.7); Neutrophils % (A) 69 %; Platelet Count 255 k/uL (150-450); RBC 4.79 m/uL (4.30-5.90); RDW 14.8 % (11.5-15.5); WBC 9.8 k/uL (3.8-10.6)
[2018-12-24] MEDS ORDERED: PANTOPRAZOLE 40 MG TABLET PO SCH (07:30)
[2018-12-24 07:45] LABS: Calcium 9.5 mg/dL (8.4-10.2); Potassium 4.3 mmol/L (3.5-5.1)
[2018-12-24] MEDS: metFORMIN 500 MG TAB PO SCH ×2 (08:13→21:57)
[2018-12-24] MEDS: AMIODARONE 300 MG in DEXTROSE 5% IN WATER 250 ML IV SCH ×4 (08:14→11:49)
[2018-12-24] MEDS: LORazepam 1 MG TAB PO SCH ×3 (08:58→21:57)
[2018-12-24] MEDS: ISOSORBIDE MONONITRATE ER 30 MG TAB.ER.24H PO SCH (08:58)
[2018-12-24] MEDS: ATORVASTATIN 10 MG TAB PO SCH (08:58)
[2018-12-24] MEDS: METOPROLOL TARTRATE 12.5 MG TAB PO SCH (08:58)
[2018-12-24] MEDS: ASPIRIN 81 MG PO SCH (08:59)
[2018-12-24] MEDS: EZETIMIBE 10 MG TAB PO SCH (09:01)
[2018-12-24] MEDS: LIDOCAINE 5% PATCH TOPICAL SCH (09:04)
[2018-12-24] MEDS: LISINOPRIL 10 MG TAB PO SCH (09:39)
[2018-12-24] MEDS: MULTIVITAMINS, THERA 1 EACH TAB PO SCH (10:59)
--- NOTE | 2018-12-24 15:03 | P.PN ---
Subjective Progress Note Date: 12/24/18 This is a pleasant 88-year-old gentleman who follows regularly with Dr. Guerra in the office. 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 According to the patient, he had been to the hospital around December 09 with symptoms of shortness of breath and associated discomfort in the chest. He was discharged home to follow-up with Dr. Frankel in the office 2 days following that. He presents to the hospital on this occasion with symptoms of abdominal discomfort in the left lower quadrant, patient also states that he had discomfort in his forearms on both arms, and was quite short of breath. EKG on arrival here showed a sinus tachycardia with occasional PVCs, incomplete left bundle branch block pattern and nonspecific ST-T wave changes. Chest x-ray showed air space obesity is representing pulmonary edema with small bilateral effusions. An echocardiogram with Doppler study was performed which revealed severe global hypokinesia, ejection fraction less than 20%, LA severely dilated, mild to moderate MR, moderate pulmonary hypertension. Blood pressure 140/80 with a heart rate in the 80s, 98% on 3 L of oxygen. White blood cell count 8.2, hemoglobin 13.8, platelet count 243. Sodium 140, potassium 4.9, BUN 25 and creatinine 0.8. Initial troponin on presentation here 0.032, subsequent troponin 0.288. BNP level 8460. Influenza A and B-. 12/24/2018 Patient was seen and examined this morning, had a much better night last night. Breathing is overall stable. Blood pressure 104/60 with a heart rate in the 50s to 60s 99% on room air. White blood cell count 9.8, hemoglobin 14.2, platelet count 255. Sodium 138, potassium 4.3, BUN 31 and creatinine 0.8. Objective - Vital Signs Vital signs: Vital Signs Temp 98.7 F 12/24/18 11:00 Pulse 50 L 12/24/18 12:00 Resp 18 12/24/18 12:00 BP 105/63 12/24/18 11:00 Pulse Ox 99 12/24/18 11:00 Intake & Output 12/23/18 12/24/18 12/24/18 18:59 06:59 18:59 Intake Total 480 45.984 600 Output Total 860 500 200 Balance -380 -454.016 400 Weight 48 kg 46.5 kg Intake: Intake, IV Titration 45.984 Amount Heparin Sod,Pork in 0.45% 45.984 NaCl 25,000 unit In 0.45 % NaCl 1 250ml.bag @ 12 UNITS/KG/HR 5.76 mls/hr IV .Q24H [facility] Rx#: [id number] Oral 480 600 Output: Urine 300 500 200 Uretheral (Moore) 350 Post Void Residual 560 Other: Voiding Method Urinal Urinal Urinal # Voids 3 4 1 - Exam PHYSICAL EXAMINATION: GENERAL: 88-year-old gentleman in no acute distress at the time of my examination HEENT: Head is atraumatic, normocephalic. Pupils equal, round. Sclera anicteric. Conjunctiva are clear. Mucous membranes of the mouth are moist. Neck is supple. There is elevated jugular venous pressure. No carotid bruit is heard. HEART EXAMINATION: Heart S1 S2 1 systolic murmur is heard CHEST EXAMINATION: Lungs reveal diminished air entry bilaterally with rales to the bases. ABDOMEN: Soft, nontender. Bowel sounds are heard. No organomegaly noted. EXTREMITIES: 2+ peripheral pulses with no evidence of peripheral edema and no calf tenderness noted. NEUROLOGIC patient is awake, alert and oriented 3 . - Labs CBC & Chem 7: 12/24/18 06:33 12/24/18 06:36 Labs: Abnormal Lab Results - Last 24 Hours (Table) 12/23/18 12/23/18 12/23/18 Range/Units 16:16 16:31 16:31 WBC 12.1 H (3.8-10.6) k/uL Neutrophils # 9.6 H (1.3-7.7) k/uL APTT (22.0-30.0) sec Chloride (98-107) mmol/L Carbon Dioxide (22-30) mmol/L BUN (9-20) mg/dL Glucose (74-99) mg/dL POC Glucose (mg/dL) 127 H (75-99) mg/dL Troponin I 0.272 H* (0.000-0.034) ng/mL 12/23/18 12/24/18 12/24/18 Range/Units 16:31 06:33 06:36 WBC (3.8-10.6) k/uL Neutrophils # (1.3-7.7) k/uL APTT 93.4 H 54.4 H (22.0-30.0) sec Chloride 97 L (98-107) mmol/L Carbon Dioxide 36 H (22-30) mmol/L BUN 31 H (9-20) mg/dL Glucose 113 H (74-99) mg/dL POC Glucose (mg/dL) (75-99) mg/dL Troponin I (0.000-0.034) ng/mL Assessment and Plan Plan: Assessment and plan #1 acute pulmonary edema, systolic congestive heart failure acute on chronic possibly exacerbated by a non-Q-wave #2 symptoms of bilateral arm discomfort, abnormality in troponin, possible non-Q-wave NM #3 history of inferior wall myocardial infarction in the past with prior PTCA of the right coronary artery #4 hypertension #5 diabetes #6 hyperlipidemia #7 history of aortic aneurysm surgery #8 anxiety #9 ischemic cardiomyopathy documented ejection fraction less than 20%. #10 history of mitral valve replacement with Daniele Kuo valve Plan Patient and family did have a discussion with Dr. Frankel today, they wish to proceed with cardiac catheterization, understanding the patient is not a candidate for coronary artery bypass grafting surgery. I did speak with Dr. Guerra, at this point in time we will continue with current therapy. He will come and speak with the family and the patient regarding further plan of care. DNP note has been reviewed, I agree with a documented findings and plan of care. Patient was seen and examined.
--- NOTE | 2018-12-24 15:40 | CDI ---
Documentation Clarification Form Date: 12/24/2018 3:18:37 PM From: Felicia Helton RN, CCDS Admit Date: 12/23/2018 5:08:00 AM Patient Name: Pasha Faustin Visit Number: [id number] Discharge Date: ATTENTION: The Clinical Documentation Specialists (CDI) and [facility] Coding Staff appreciate your assistance in clarifying documentation. Please respond to the clarification below the line at the bottom and electronically sign. The CDI & [facility] Coding staff will review the response and follow-up if needed. Please note: Queries are made part of the Legal Health Record. If you have any questions, please contact the author of this message via ITS. Dr. Jeremy Frankel Malnutrition has been documented in the nutritional assessment. History/Risk Factors: COPD, Diabetes Mellitus, CHF, Everyday smoker Clinical Indicators: 88-year-old male who present with decreased intake with nausea, vomiting, diarrhea, and weight los over two months. He is emaciated, underweight, depressions between ribs, severe depletion in temporal and ducal region. Labs: Albumin 3.4 Total Protein 5.9 Current BMI: 15.6 Insufficient energy intake: yes Weight Loss: 19 % over 2 months Loss of subcutaneous fat: Yes Loss of muscle mass: Yes Treatment: Dietary Consult: Yes, Malnutrition, severe, social/environmental Supplements: Commercial beverage, Enlive TID Monitor I/O Lab monitoring: In your professional opinion, can you please clarify if these findings signify one of the following conditions? Mild Protein-Calorie Malnutrition Moderate Protein-Calorie Malnutrition Severe Protein-Calorie Malnutrition Other condition, please specify Unable to determine (Last Revision: December 2017) MTDD
[2018-12-24] MEDS: HEPARIN SOD,PORK IN 0.45% NACL 25,000 UNIT in 0.45% NACL 1 250ML.BAG IV SCH (18:08)
[2018-12-24] MEDS: NITROGLYCERIN-D5W PMX 50 MG in DEXTROSE/WATER 1 250ML.BAG IV SCH (18:33)
--- NOTE | 2018-12-24 23:21 | PN ---
PROGRESS NOTE CHIEF COMPLAINT: Re-evaluation. HISTORY OF PRESENT ILLNESS: This is an 88-year-old gentleman who was admitted to the hospital with pain in the arms and subsequent pulmonary edema. The patient has a history of known coronary artery disease and a previous PTCA. The patient has had no symptoms of angina until this episode. The patient's echocardiogram reveals ejection fraction 20%. The patient recommended cardiac catheterization by the surveillance sensor officer. The patient and family initially declined. After further discussion with them, they will decide regarding that. Obviously, they do not want a CABG. The patient is not a good enough shape for CABG. If that will be the option. REVIEW OF SYSTEMS: Neuro: Denies any headaches, dizziness. Psych: Some confusion. Cardiac: No chest pain, angina, palpitations. Respiratory: Denies shortness of breath. Does have chronic cough. No hemoptysis. GI no nausea, vomiting, abdominal pain, diarrhea. : No symptoms of dysuria or hematuria. The patient had frequency. The patient is voiding. EXTREMITIES: Denies pain, edema is down. CONSTITUTIONAL: No fever or chills. PHYSICAL EXAMINATION: Pleasant gentleman, exhibits mild intermittent confusion. Vital signs temperature 97.9, pulse 66, respiration 18, blood pressure 127/67, pulse ox of 98% on 2 L. HEENT: Normocephalic. Neck: No JVD. CHEST EXAMINATION: Decreased air flows. Crackles at the right base. CARDIAC: Sounds S1, S2 with no gallops. Systolic murmur 2/6 left sternal border and apex. Rhythm is regular. ABDOMEN: Soft, protuberant. Bowel sounds active. Extremities reveal no edema. Neurologically awake, alert, oriented to place, person, but he is fixated on why he is on the 3rd floor. Moves both upper and lower extremities well. During the night, the patient had a couple of episodes of ventricular tachycardia for which the patient was placed on amiodarone by the surveillance sensor officer. LABORATORY DATA: CBC which was normal. PTT was 54.4, platelet count 255, electrolytes reveal a CO2 content 36, BUN 31, creatinine 0.89. ASSESSMENT: 1. Non-ST segment elevated myocardial infarction. 2. Acute congestive cardiac failure secondary to systolic dysfunction. 3. Dilated ischemic cardiomyopathy. 4. Diabetes mellitus. 5. Chronic obstructive pulmonary disease. 6. Chronic back pain. PLAN: The patient is stable. Continue present medical regimen. Patient's condition discussed with the patient. Prognosis guarded. MMODL / IJN: [id number] /
[2018-12-25] MEDS: LORazepam 2 MG/ML INJ IV PRN (04:46)
[2018-12-25] MEDS: PANTOPRAZOLE 40 MG TABLET PO SCH (06:32)
[2018-12-25 06:43] LABS: Basophils % (A) 0 %; Eosinophils # (A) 0.1 k/uL (0-0.7); Eosinophils % (A) 1 %; HCT 39.1 % (39.0-53.0); Lymphocytes # (A) 1.2 k/uL (1.0-4.8); Lymphocytes % (A) 18 %; MCH 29.6 pg (25.0-35.0); MCHC 33.2 g/dL (31.0-37.0); MCV 89.1 fL (80.0-100.0); Mean Platelet Volume 9.7; Monocytes # (A) 0.6 k/uL (0-1.0); Monocytes % (A) 9 %; Neutrophils # (A) 4.7 k/uL (1.3-7.7); Neutrophils % (A) 69 %; Platelet Count 215 k/uL (150-450); RBC 4.38 m/uL (4.30-5.90); RDW 15.2 % (11.5-15.5); WBC 6.8 k/uL (3.8-10.6)
[2018-12-25 07:04] LABS: Anion Gap 7 mmol/L; Blood Urea Nitrogen 32 mg/dL (9-20); Calcium 9.2 mg/dL (8.4-10.2); Carbon Dioxide 35 mmol/L (22-30); Chloride 95 mmol/L (98-107); Glucose 107 mg/dL (74-99); Potassium 3.6 mmol/L (3.5-5.1); Sodium 137 mmol/L (137-145)
[2018-12-25] MEDS: HEPARIN SODIUM,PORCINE 5,000 UNIT/ML 1 ML VIAL IV PRN (07:19)
[2018-12-25] MEDS ORDERED: SODIUM CHLORIDE 0.9% 1,000 ML IV SCH (07:30)
[2018-12-25] MEDS: LISINOPRIL 10 MG TAB PO SCH (08:02)
[2018-12-25] MEDS: ATORVASTATIN 10 MG TAB PO SCH (08:02)
[2018-12-25] MEDS: METOPROLOL TARTRATE 12.5 MG TAB PO SCH (08:02)
[2018-12-25] MEDS: LORazepam 1 MG TAB PO SCH ×2 (08:02→15:44)
[2018-12-25] MEDS: ISOSORBIDE MONONITRATE ER 30 MG TAB.ER.24H PO SCH (08:03)
[2018-12-25] MEDS: ASPIRIN 81 MG PO SCH (08:03)
[2018-12-25] MEDS: HYDROcodone/APAP 5-325MG 1 EACH TAB PO PRN ×3 (08:03→21:08)
[2018-12-25] MEDS: LIDOCAINE 5% PATCH TOPICAL SCH (08:05)
[2018-12-25] MEDS: EZETIMIBE 10 MG TAB PO SCH (08:05)
[2018-12-25] MEDS: metFORMIN 500 MG TAB PO SCH ×2 (08:06→21:10)
--- NOTE | 2018-12-25 08:43 | PN ---
PROGRESS NOTE Mr. Faustin is an 88-year-old male with known history of mitral valve surgery, history of coronary artery disease, history of severe peripheral vascular disease, chronic obstructive lung disease with chronic tobacco use, who presented with symptoms of progressive dyspnea and symptoms of CHF. He had minimal troponin elevation. There was a discussion regarding possible coronary angiography. I had a long discussion this morning with him and his daughter regarding the options including pursuing cardiac catheterization, the long-term prognosis and the risks. Unfortunately, his left ventricular systolic function is severely impaired and that it is not acute and the likelihood of recovery in the LV function is very low. I have discussed with them the long-term prognosis remains quite guarded in view of his multiple past medical history and comorbidities. I have discussed with them both option of maximizing medical therapy versus pursuing coronary angiography, the risks and the complication were discussed with them in detail. The patient has elected to pursue medical therapy at this time and depending on his progress, he will be further assessed. In the meantime, I will stop his IV nitrate and increase his oral nitrate. I will add Plavix and Aldactone to his regimen, optimize his medical therapy and depending on his status, further recommendation will be made. Those recommendations were discussed with Dr. Frankel. Depending on his progress, further assessment will be made. MMODL / IJN: [id number] /
[2018-12-25] MEDS ORDERED: FUROSEMIDE 10 MG/ML 2 ML VIAL IV SCH (09:00)
[2018-12-25] MEDS: MULTIVITAMINS, THERA 1 EACH TAB PO SCH (12:27)
[2018-12-25] MEDS: CLOPIDOGREL 75 MG TAB PO SCH (12:27)
[2018-12-25] MEDS: SPIRONOLACTONE 25 MG TAB PO SCH (12:27)
[2018-12-25] MEDS: ISOSORBIDE MONONITRATE ER 60 MG TAB.ER.24H PO SCH (12:27)
[2018-12-25] MEDS: HEPARIN SOD,PORK IN 0.45% NACL 25,000 UNIT in 0.45% NACL 1 250ML.BAG IV SCH (16:11)
[2018-12-26] MEDS: LORazepam 1 MG TAB PO SCH ×3 (00:13→16:51)
[2018-12-26] MEDS: PANTOPRAZOLE 40 MG TABLET PO SCH (05:50)
[2018-12-26] MEDS: HYDROcodone/APAP 5-325MG 1 EACH TAB PO PRN ×2 (05:50→16:51)
--- NOTE | 2018-12-26 07:20 | PN ---
PROGRESS NOTE ATTENDING PHYSICIAN: Dr. Enedelia Frankel CHIEF COMPLAINT: Re-evaluation. HISTORY OF PRESENT ILLNESS: This 88-year-old gentleman was admitted to the hospital because of shortness of breath. The patient is noted to have subendocardial myocardial infarction. The patient had an ejection fraction of 20%, which has been fairly stable. The patient is feeling relatively well, exhibits some confusion. The patient evaluation after cardiology initial plan was for cardiac catheterization today. However, Dr. Guerra, who was the patient's crusher operator, decided the patient probably be off to be treated with medical therapy because of his frail status. After today's discussion with the family, they are in agreement. The patient is a no code. He is actually doing fairly well. Sleeping fairly comfortably flat in bed. Denies any pain. REVIEW OF SYSTEMS: Neuro: Denies any headaches, dizziness. Psych: No anxiety. Cardiac: No chest pain, angina, palpitation. Respiratory: Denies shortness of breath or hemoptysis. There is some cough. GI: No nausea, vomiting, abdominal pain, diarrhea. : No symptoms of dysuria, hematuria, urgency, frequency. Extremities: Denies pain, edema. Constitutional: No fever, chills. PHYSICAL EXAMINATION: This is an 88-year-old gentleman at present in no distress. Vital signs reveals the patient is afebrile. Pulse is 86, respirations 16, blood pressure 134/69, pulse ox 94% on room air. HEENT: Normocephalic. NECK: 1+ JVD. Decreased range of motion of the neck. CHEST: Decreased air flow. A few crackles at the right base. CARDIAC: Distant heart sounds S1, S2 with no gallop. Systolic murmur 2/6 left sternal border. ABDOMEN: Soft. Bowel sounds present. EXTREMITIES: Reveal trace edema in the ankles. NEUROLOGIC: Awake, alert, oriented. Well-coordinated movements both upper lower extremities. LAB ASSESSMENT: CBC which is normal. Electrolytes reveal a CO2 of 35, BUN 32, creatinine 0.8. ASSESSMENT: 1. Non-ST elevated myocardial infarction. 2. Dilated ischemic cardiomyopathy. 3. Chronic obstructive pulmonary disease. 4. Prerenal azotemia. PLAN: The patient is stable. Continue present medical regimen. Patient's condition discussed with the patient and family this morning. This morning my discussion with the family was regarding what was planned earlier for a cardiac catheterization. The patient subsequently had a discussion with Dr. Guerra and catheterization has been discontinued. Medical management is the plan. Continue present regimen. MARY / MERCYN: [id number] /
[2018-12-26 07:56] LABS: Basophils % (A) 0 %; Eosinophils # (A) 0.1 k/uL (0-0.7); Eosinophils % (A) 2 %; HCT 38.9 % (39.0-53.0); HGB 12.9 gm/dL (13.0-17.5); Lymphocytes # (A) 1.8 k/uL (1.0-4.8); Lymphocytes % (A) 26 %; MCH 30.4 pg (25.0-35.0); MCHC 33.2 g/dL (31.0-37.0); MCV 91.5 fL (80.0-100.0); Mean Platelet Volume 8.7; Monocytes # (A) 0.6 k/uL (0-1.0); Monocytes % (A) 9 %; Neutrophils # (A) 4.3 k/uL (1.3-7.7); Neutrophils % (A) 61 %; Platelet Count 232 k/uL (150-450); RBC 4.25 m/uL (4.30-5.90); RDW 15.1 % (11.5-15.5)
[2018-12-26 08:28] LABS: Anion Gap 6 mmol/L; Blood Urea Nitrogen 26 mg/dL (9-20); Calcium 9.1 mg/dL (8.4-10.2); Carbon Dioxide 31 mmol/L (22-30); Chloride 98 mmol/L (98-107); Glucose 94 mg/dL (74-99); Sodium 135 mmol/L (137-145)
[2018-12-26] MEDS ORDERED: ONDANSETRON 4 MG/2 ML VIAL IVP STA (08:35)
[2018-12-26] MEDS ORDERED: METOPROLOL TARTRATE 5 MG/5 ML VIAL IVP STA (08:58)
--- NOTE | 2018-12-26 09:11 | P.CRDCN ---
History of Present Illness History of present illness: Patient has had multiple episodes of ventricular tachycardia as well as ventricular fibrillation. The ventricular tachycardia is very fast and is most likely bundle branch reentry based upon the QRS morphology on telemetry He is resting comfortably in bed he is alert awake opens his eyes answers questions Try mucosae With sounds are reduced bilaterally to reduce his for A. fib and he looks comfortable no respiratory distress Heart sounds S1 and S2 are normal no murmurs or gallops no rub Abdomen soft Extremities warm Frail elderly gentleman Blood pressure 142/73 mmHg Impression Severe ischemic cardio myopathy with severe LV dysfunction Acute myocardial infarction On conservative management of medical treatment, on guideline directed medical treatment Episodes of ventricular fibrillation line episodes of fast ventricular tachycardia possibly bundle branch reentry Suggest Stop metoprolol by mouth 1 dose of IV metoprolol 5 mg followed by carvedilol 3.125 mg twice daily IV magnesium Medical management only Keep patient comfortable Past Medical History Past Medical History: COPD, Diabetes Mellitus, Hyperlipidemia, Hypertension, Memory Impairment Additional Past Medical History / Comment(s): Hard of Hearing History of Any Multi-Drug Resistant Organisms: None Reported Past Surgical History: Hernia Repair, Orthopedic Surgery Additional Past Surgical History / Comment(s): Triple A repair, heart valve repair. Past Anesthesia/Blood Transfusion Reactions: No Reported Reaction Past Psychological History: Anxiety Smoking Status: Current every day smoker Past Alcohol Use History: Occasional Additional Past Alcohol Use History / Comment(s): Pt. states that he smokes about 8 cigarettes per day. Past Drug Use History: None Reported - Past Family History Father Family Medical History: Cancer Mother Family Medical History: CVA/TIA Medications and Allergies Home Medications Medication Instructions Recorded Confirmed Type Enalapril [Vasotec] 5 mg PO DAILY 07/03/14 12/22/18 History Ezetimibe/Simvastatin [Vytorin 1 tab PO DAILY 07/03/14 12/22/18 History 10-20 mg Tablet] LORazepam [Ativan] 1 mg PO TID PRN 07/03/14 12/23/18 History Metoprolol Tartrate [Lopressor] 12.5 mg PO DAILY 07/03/14 12/22/18 History Multivitamins, Thera [Multivitamin 1 tab PO DAILY 02/13/15 12/22/18 History (formulary)] Aspirin EC [Ecotrin Low Dose] 81 mg PO BID tablet. 02/16/15 12/22/18 Rx Isosorbide Mononitrate ER [Imdur] 30 mg PO DAILY tab.er.24h 02/16/15 12/22/18 Rx Nitroglycerin Sl Tabs [Nitrostat] 0.4 mg SUBLINGUAL Q5M PRN #0 tab 02/16/15 12/22/18 Rx HYDROcodone/APAP 5-325MG [[place] 1 tab PO TID PRN 02/10/18 12/23/18 History 5-325] Omeprazole 20 mg PO DAILY 12/08/18 12/22/18 History metFORMIN HCL ER [Glucophage Xr] 500 mg PO HS 12/08/18 12/22/18 History Allergies Allergy/AdvReac Type Severity Reaction Status Date / Time No Known Allergies Allergy Verified 12/22/18 23:11 Physical Exam Vitals: Vital Signs Temp Pulse Resp BP Pulse Ox 12/26/18 04:33 97.8 F 54 L 15 142/73 99 12/25/18 23:58 60 16 128/84 100 12/25/18 23:00 16 93 L 12/25/18 21:06 97.7 F 52 L 15 134/76 96 12/25/18 19:50 97.8 F 55 L 18 120/71 97 12/25/18 16:00 18 12/25/18 15:56 96.4 F L 52 L 18 130/66 97 12/25/18 12:00 97.7 F 51 L 16 131/79 96 Intake and Output 12/25/18 12/26/18 12/26/18 22:59 06:59 14:59 Intake Total 310.61 100 Output Total 100 100 Balance 210.61 -100 100 Intake: Intake, IV Titration 90.61 Amount Heparin Sod,Pork in 0.45% 90.61 NaCl 25,000 unit In 0.45 % NaCl 1 250ml.bag @ 12 UNITS/KG/HR 5.76 mls/hr IV .Q24H [facility] Rx#: [id number] Oral 220 100 Output: Urine 100 100 Other: Voiding Method Urinal Urinal # Voids 1 1 Weight 36.5 kg 74 kg Results 12/26/18 07:01 12/26/18 07:01 Coagulation 12/25/18 12/26/18 Range/Units 14:51 07:01 APTT 69.9 H 63.1 H (22.0-30.0) sec CBC 12/26/18 Range/Units 07:01 WBC 7.0 (3.8-10.6) k/uL RBC 4.25 L (4.30-5.90) m/uL Hgb 12.9 L (13.0-17.5) gm/dL Hct 38.9 L (39.0-53.0) % Plt Count 232 (150-450) k/uL Comprehensive Metabolic Panel 12/26/18 Range/Units 07:01 Sodium 135 L (137-145) mmol/L Potassium 4.0 (3.5-5.1) mmol/L Chloride 98 (98-107) mmol/L Carbon Dioxide 31 H (22-30) mmol/L BUN 26 H (9-20) mg/dL Creatinine 0.75 (0.66-1.25) mg/dL Glucose 94 (74-99) mg/dL Calcium 9.1 (8.4-10.2) mg/dL Current Medications Generic Name Dose Route Start Last Admin Trade Name Freq PRN Reason Stop Dose Admin Hydrocodone Bitart/Acetaminophen 1 each 12/23/18 18:00 12/26/18 05:50 [place] 5-325 PO 1 each QID PRN Administration Moderate Pain Artificial Tears 1 drops 12/23/18 14:09 12/23/18 16:21 Artificial Tear Drops BOTH EYES 1 drops TID PRN Administration Dry Eye(s) Aspirin 81 mg 12/24/18 09:00 12/25/18 08:03 Aspirin PO 81 mg DAILY [facility] Administration Atorvastatin Calcium 10 mg 12/24/18 09:00 12/25/18 08:02 Lipitor PO 10 mg DAILY [facility] Administration Carvedilol 3.125 mg 12/26/18 09:15 Coreg PO BID-W/MEALS [facility] Clopidogrel Bisulfate 75 mg 12/25/18 09:00 12/25/18 12:27 Plavix PO 75 mg DAILY [facility] Administration Ezetimibe 10 mg 12/24/18 09:00 12/25/18 08:05 Zetia PO 10 mg DAILY [facility] Administration Heparin Sodium (Porcine) 0 unit 12/23/18 15:28 12/25/18 07:19 Heparin IV 4,000 unit PER PROTOCOL PRN Administration Low PTT Protocol Magnesium Sulfate/Dextrose 1 100 mls @ 100 mls/hr 12/26/18 09:15 gm/ IV Solution IVPB 12/26/18 10:14 ONCE ONE Isosorbide Mononitrate 60 mg 12/25/18 09:00 12/25/18 12:27 Imdur PO 60 mg DAILY [facility] Administration Lidocaine 1 patch 12/23/18 12:45 12/25/18 08:05 Lidoderm TOPICAL 1 patch DAILY [facility] Administration Lisinopril 10 mg 12/24/18 09:00 12/25/18 08:02 Zestril PO 10 mg DAILY [facility] Administration Lorazepam 1 mg 12/23/18 05:54 12/25/18 04:46 Ativan IV 1 mg Q8H PRN Administration Anxiety Lorazepam 1 mg 12/23/18 16:00 12/26/18 00:13 Ativan PO 1 mg TID [facility] Administration Metformin HCl 250 mg 12/23/18 21:00 12/25/18 21:10 Glucophage PO 250 mg BID [facility] Administration Multivitamins 1 each 12/24/18 12:00 12/25/18 12:27 Theragran PO 1 each DAILY@1200 [facility] Administration Nitroglycerin 0.4 mg 12/23/18 12:24 12/23/18 15:47 Nitrostat SUBLINGUAL 0.4 mg Q5M PRN Administration Chest Pain Pantoprazole Sodium 40 mg 12/23/18 13:00 12/26/18 05:50 Protonix PO 40 mg [id number]-[id number] [facility] Administration Sodium Chloride 10 ml 12/23/18 09:00 12/25/18 21:10 Saline Flush IV 10 ml BID [facility] Administration Spironolactone 25 mg 12/25/18 09:00 12/25/18 12:27 Aldactone PO 25 mg DAILY [facility] Administration Intake and Output 12/25/18 12/26/18 12/26/18 22:59 06:59 14:59 Intake Total 310.61 100 Output Total 100 100 Balance 210.61 -100 100 Intake: Intake, IV Titration 90.61 Amount Heparin Sod,Pork in 0.45% 90.61 NaCl 25,000 unit In 0.45 % NaCl 1 250ml.bag @ 12 UNITS/KG/HR 5.76 mls/hr IV .Q24H [facility] Rx#: [id number] Oral 220 100 Output: Urine 100 100 Other: Voiding Method Urinal Urinal # Voids 1 1 Weight 36.5 kg 74 kg 12/26/18 07:01 12/26/18 07:01
[2018-12-26] MEDS ORDERED: MAGNESIUM SULFATE-D5W PMX 1 GM in DEXTROSE/WATER 1 100ML.BAG IVPB ONE (09:15)
[2018-12-26] MEDS: CARVEDILOL 3.125 MG TAB PO SCH ×2 (10:11→20:49)
[2018-12-26] MEDS: ATORVASTATIN 10 MG TAB PO SCH (11:21)
[2018-12-26] MEDS: ISOSORBIDE MONONITRATE ER 60 MG TAB.ER.24H PO SCH (11:21)
[2018-12-26] MEDS: MULTIVITAMINS, THERA 1 EACH TAB PO SCH (11:21)
[2018-12-26] MEDS: LISINOPRIL 10 MG TAB PO SCH (11:21)
[2018-12-26] MEDS: metFORMIN 500 MG TAB PO SCH ×2 (11:22→22:45)
[2018-12-26] MEDS: CLOPIDOGREL 75 MG TAB PO SCH (11:22)
[2018-12-26] MEDS: EZETIMIBE 10 MG TAB PO SCH (11:22)
[2018-12-26] MEDS: ASPIRIN 81 MG PO SCH (11:22)
[2018-12-26] MEDS: LIDOCAINE 5% PATCH TOPICAL SCH (11:22)
[2018-12-26] MEDS: SPIRONOLACTONE 25 MG TAB PO SCH (11:22)
[2018-12-26] MEDS: CALCIUM CARBONATE 500 MG CHEWABLE PO PRN (13:39)
[2018-12-26] MEDS ORDERED: METOPROLOL TARTRATE 5 MG/5 ML VIAL IVP ONE (16:00)
[2018-12-26] MEDS: METOPROLOL TARTRATE 12.5 MG TAB PO SCH (23:11)
--- NOTE | 2018-12-27 00:05 | PN ---
PROGRESS NOTE ATTENDING PHYSICIAN: Dr. Enedelia Frankel. HISTORY: This 88-year-old gentleman was admitted to the hospital with shortness of breath and subendocardial myocardial infarction. The patient is noted to be in pulmonary edema. He has dilated cardiomyopathy, ejection fraction of 20%. He was actually originally scheduled for a cardiac cath yesterday, which was canceled due to patient's generalized weakness and patient did not want anything particularly done. He did have runs of ventricular tachycardia. The patient has been on amiodarone. The patient is followed by Cardiology. The patient is requesting no aggressive measures. Family is requesting the patient be considered for hospice care and I think that is appropriate as the patient is fairly cachectic elderly frail gentleman. He has got cardiac ailment as mentioned above. The patient is a NO CODE. The patient is alert. Vital signs reveal temperature of 97.8, pulse 100, respirations 26, blood pressure 150/105, pulse ox 100 percent on 2 L. HEENT: Normocephalic. NECK: No JVD. CHEST: Crackles in the right base. CARDIAC: Normal S1, S2 with no gallops. Systolic murmur 2/6 at the apex. ABDOMEN: Soft. Bowel sounds present. EXTREMITIES: No edema. NEUROLOGICALLY: Awake, alert, oriented with well-coordinated movements. He needs at least 2% assistance to get up in the chair. ASSESSMENT: 1. Status post subendocardial myocardial infarction. 2. Dilated ischemic cardiomyopathy. 3. Ventricular tachycardia. 4. Ventricular fibrillation. PLAN: Patient is on amiodarone at present. Patient's prognosis remains poor. Continue present management. After discussion with the family and the patient, the patient is basically no code and they are going to consider comfort care. They are going to think it over regarding hospice care. MMODL / IJN: [id number] /
[2018-12-27] MEDS: LORazepam 1 MG TAB PO SCH ×4 (00:26→23:43)
[2018-12-27] MEDS: HYDROcodone/APAP 5-325MG 1 EACH TAB PO PRN ×3 (04:50→17:24)
[2018-12-27] MEDS: CARVEDILOL 3.125 MG TAB PO SCH (06:34)
[2018-12-27] MEDS: PANTOPRAZOLE 40 MG TABLET PO SCH (06:34)
[2018-12-27 07:08] LABS: Anisocytosis Slight; Basophils % (A) 0 %; Eosinophils # (A) 0.1 k/uL (0-0.7); Eosinophils % (A) 1 %; HCT 37.3 % (39.0-53.0); Lymphocytes # (A) 1.5 k/uL (1.0-4.8); Lymphocytes % (A) 20 %; MCH 29.6 pg (25.0-35.0); MCHC 32.2 g/dL (31.0-37.0); MCV 92.1 fL (80.0-100.0); Mean Platelet Volume 10.5; Monocytes # (A) 0.6 k/uL (0-1.0); Monocytes % (A) 8 %; Neutrophils % (A) 67 %; Platelet Count 201 k/uL (150-450); RBC 4.05 m/uL (4.30-5.90); RDW 16.3 % (11.5-15.5); WBC 7.5 k/uL (3.8-10.6)
[2018-12-27] MEDS: ASPIRIN 81 MG PO SCH (09:39)
[2018-12-27] MEDS: LISINOPRIL 10 MG TAB PO SCH (09:39)
[2018-12-27] MEDS: ISOSORBIDE MONONITRATE ER 60 MG TAB.ER.24H PO SCH (09:39)
[2018-12-27] MEDS: ATORVASTATIN 10 MG TAB PO SCH (09:39)
[2018-12-27] MEDS: CLOPIDOGREL 75 MG TAB PO SCH (09:39)
[2018-12-27] MEDS: SPIRONOLACTONE 25 MG TAB PO SCH (09:39)
[2018-12-27] MEDS: LIDOCAINE 5% PATCH TOPICAL SCH (09:40)
[2018-12-27] MEDS: metFORMIN 500 MG TAB PO SCH ×2 (09:40→20:47)
[2018-12-27] MEDS: EZETIMIBE 10 MG TAB PO SCH (09:40)
--- NOTE | 2018-12-27 12:13 | P.PN ---
Subjective Patient is doing well. No chest discomfort dizziness or lightheadedness. He has not had any sustained episodes of VF or VT since he received IV metoprolol and incision of carvedilol Blood pressure is mildly elevated Blood pressure 144/73 and 150/80 mmHg, pulse rate in the 60s, afebrile, normal respirations Breath sounds are equal bilaterally no rhonchi no crackles Heart sounds S1 and S2 normal no murmurs or gallops no rub Abdomen soft nontender Extended is warm no edema Impression Severe ischemic cardio myopathy Non-Q-wave myocardial infarction Episodes of ventricular fibrillation Episode of fast ventricular tachycardia likely bundle branch reentry with spotless termination Medical treatment recommended Suggest Yesterday he responded very well to IV metoprolol I'm increasing the dose of carvedilol which was begun yesterday and he should be able to tolerate this If he can then I may increase it further tomorrow Maximum medical treatment This gentleman is doing very well his sitting up in a chair looks very comfortable alert and oriented eating his meals Objective - Vital Signs Vital signs: Vital Signs Temp 97.6 F 12/27/18 08:00 Pulse 60 12/27/18 11:26 Resp 16 12/27/18 11:26 BP 150/83 12/27/18 08:00 Pulse Ox 99 12/27/18 08:00 Intake & Output 12/26/18 12/27/18 12/27/18 18:59 06:59 18:59 Intake Total 340 120 Output Total 300 350 Balance 40 -350 120 Weight 48 kg Intake: Oral 340 120 Output: Urine 300 350 Other: Voiding Method Urinal Urinal Urinal Diaper Diaper Diaper # Voids 1 - Labs CBC & Chem 7: 12/27/18 06:11 12/26/18 07:01 Labs: Abnormal Lab Results - Last 24 Hours (Table) 12/27/18 Range/Units 06:11 RBC 4.05 L (4.30-5.90) m/uL Hgb 12.0 L (13.0-17.5) gm/dL Hct 37.3 L (39.0-53.0) % RDW 16.3 H (11.5-15.5) %
[2018-12-27] MEDS: MULTIVITAMINS, THERA 1 EACH TAB PO SCH (12:16)
--- NOTE | 2018-12-27 12:48 | PN ---
PROGRESS NOTE ATTENDING PHYSICIAN: Dr. Enedelia Frankel. CHIEF COMPLAINT: Re-evaluation. HISTORY OF PRESENT ILLNESS: The patient 88-year-old gentleman was admitted to the hospital with chest pain, shortness of breath. The patient had evidence suggestive of a subendocardial myocardial infarction. He is known to have ischemic cardiomyopathy, ejection fraction 20%. The patient at 1 time was considered for angiogram. However, the patient due to his age and risks elected not to after his discussion with his glove former. The patient is doing well. He did have an episode of ventricular tachycardia, ventricular fibrillation yesterday. No further symptoms. He feels really back to his usual baseline status and feels good. He is very alert. REVIEW OF SYSTEMS: Neuro: Denies any headaches, dizziness. Psych: No anxiety. Cardiac: No chest pain, angina, palpitation. Respiratory: Denies shortness of breath, cough, hemoptysis. GI no nausea, vomiting, abdominal pain, diarrhea. : No symptoms of dysuria, hematuria, urgency, frequency. EXTREMITIES: No pain. CONSTITUTIONAL: No fever, chills. PHYSICAL EXAMINATION: Pleasant male in no distress. Vital signs reveals temperature 97.6, pulse 68, respirations 16, blood pressure 150/83, pulse ox 99% on 2 L. HEENT: Normocephalic. Neck: No JVD. CHEST: Clear to auscultation with decreased air flow, dry crackles at the right base. CARDIAC: Sounds S1, S2 with no gallops. Systolic murmur 2/6 left sternal border. ABDOMEN: Soft. No palpable masses. Bowel sounds normal. No organomegaly. No abdominal bruits. Femoral artery bruit. Extremities reveal no edema. Decreased pedal pulses. Neurological: Awake, alert, oriented with well-coordinated movements. LABORATORY ASSESSMENT: CBC which revealed a hemoglobin of 12. BUN yesterday was 26, creatinine 0.75. ASSESSMENT: 1. Status post subendocardial myocardial infarction. 2. Congestive cardiac failure secondary to systolic dysfunction improved. 3. Ventricular tachycardia, ventricular fibrillation, resolved. 4. Mild chronic anemia. 5. Chronic back pain. 6. 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 PLAN: The patient is stable. Continue present medical regimen. Patient's condition discussed with the patient and daughter. I did explain to the patient what hospice meant and he is going to think it over along with his daughter and hopefully further arrangements can be made for the patient going to be transferred home. MMCATIE / KHUSHI: [id number] /
[2018-12-27] MEDS: CARVEDILOL 6.25 MG TAB PO SCH (16:32)
[2018-12-27 21:59] LABS: Glucose,Whole Blood 175 mg/dL (75-99)
[2018-12-28] MEDS: HYDROcodone/APAP 5-325MG 1 EACH TAB PO PRN ×2 (04:15→12:27)
[2018-12-28 05:56] LABS: Glucose,Whole Blood 106 mg/dL (75-99)
[2018-12-28] MEDS: PANTOPRAZOLE 40 MG TABLET PO SCH (06:07)
[2018-12-28 06:19] LABS: Glucose,Whole Blood 102 mg/dL (75-99)
[2018-12-28 06:55] LABS: Basophils % (A) 0 %; Eosinophils # (A) 0.1 k/uL (0-0.7); Eosinophils % (A) 1 %; HCT 38.7 % (39.0-53.0); HGB 12.1 gm/dL (13.0-17.5); Lymphocytes # (A) 1.7 k/uL (1.0-4.8); Lymphocytes % (A) 21 %; MCH 29.6 pg (25.0-35.0); MCHC 31.4 g/dL (31.0-37.0); MCV 94.5 fL (80.0-100.0); Mean Platelet Volume 7.7; Monocytes # (A) 0.7 k/uL (0-1.0); Monocytes % (A) 8 %; Neutrophils # (A) 5.6 k/uL (1.3-7.7); Neutrophils % (A) 67 %; Platelet Count 212 k/uL (150-450); RDW 14.4 % (11.5-15.5); WBC 8.4 k/uL (3.8-10.6)
[2018-12-28] MEDS: LIDOCAINE 5% PATCH TOPICAL SCH (08:42)
[2018-12-28] MEDS: metFORMIN 500 MG TAB PO SCH (08:43)
[2018-12-28] MEDS: CARVEDILOL 6.25 MG TAB PO SCH (08:43)
[2018-12-28] MEDS: ATORVASTATIN 10 MG TAB PO SCH (08:43)
[2018-12-28] MEDS: CLOPIDOGREL 75 MG TAB PO SCH (08:43)
[2018-12-28] MEDS: ISOSORBIDE MONONITRATE ER 60 MG TAB.ER.24H PO SCH (08:43)
[2018-12-28] MEDS: LORazepam 1 MG TAB PO SCH ×2 (08:43→15:12)
[2018-12-28] MEDS: EZETIMIBE 10 MG TAB PO SCH (08:43)
[2018-12-28] MEDS: MULTIVITAMINS, THERA 1 EACH TAB PO SCH (08:44)
[2018-12-28] MEDS: SPIRONOLACTONE 25 MG TAB PO SCH (08:44)
[2018-12-28] MEDS: ASPIRIN 81 MG PO SCH (08:44)
[2018-12-28] MEDS ORDERED: LISINOPRIL 5 MG TAB PO SCH (09:00)
[2018-12-28] MEDS: CALCIUM CARBONATE 500 MG CHEWABLE PO PRN (10:50)
[2018-12-28 12:39] VITALS: BP 126/74; PULSE 49; RESP 14; TEMP 97.8
[2018-12-28 14:39] VITALS: BMI 17.2
--- NOTE | 2018-12-28 18:59 | P.PN ---
Subjective Patient is sitting up in a chair comfortable. He's had no more ventricular arrhythmias since Friday Blood pressure is well controlled He is tolerating his beta emerita dose No chest discomfort no shortness of breath no heart failure symptoms Blood pressure 126/70. His mercury also rate in the 50s and 60s Breath sounds are clear no rhonchi no crackles Heart sounds are normal normal S1 normal S2 Abdomen soft nontender Extremities warm no edema Impression Ischemic cardio myopathy Non-Q wave myocardial infarction Episodes of ventricular fibrillation, nonsustained Episodes of sustained ventricular tachycardia likely bundle branch reentry Patient responded very well to IV followed by by mouth beta blockers Plan Continue conservative treatment no invasive therapies Maximal medical treatment. So far the patient has tolerated this well Objective - Vital Signs Vital signs: Vital Signs Temp 97.8 F 12/28/18 12:38 Pulse 49 L 12/28/18 12:38 Resp 14 12/28/18 12:38 BP 126/74 12/28/18 12:38 Pulse Ox 95 12/28/18 12:38 Intake & Output 12/27/18 12/28/18 12/28/18 18:59 06:59 18:59 Intake Total 720 360 Output Total 200 300 Balance 720 -200 60 Weight 51.2 kg 51.2 kg Intake: Oral 720 360 Output: Urine 200 300 Other: Voiding Method Urinal Urinal Urinal Diaper Diaper Diaper # Voids 1 0 # Bowel Movements 0 - Labs CBC & Chem 7: 12/28/18 06:21 12/26/18 07:01 Labs: Abnormal Lab Results - Last 24 Hours (Table) 12/27/18 12/28/18 12/28/18 Range/Units 21:57 05:54 06:17 RBC (4.30-5.90) m/uL Hgb (13.0-17.5) gm/dL Hct (39.0-53.0) % POC Glucose (mg/dL) 175 H 106 H 102 H (75-99) mg/dL 12/28/18 Range/Units 06:21 RBC 4.10 L (4.30-5.90) m/uL Hgb 12.1 L (13.0-17.5) gm/dL Hct 38.7 L (39.0-53.0) % POC Glucose (mg/dL) (75-99) mg/dL
--- NOTE | 2018-12-29 12:21 | CDI ---
Documentation Clarification Form Date: 12/24/2018 3:18:00 PM From: Felicia Helton RN, CCDS Admit Date: 12/23/2018 5:08:00 AM Patient Name: Pasha Faustin Visit Number: [id number] Discharge Date: 12/28/2018 4:43:00 PM ATTENTION: The Clinical Documentation Specialists (CDI) and [facility] Coding Staff appreciate your assistance in clarifying documentation. Please respond to the clarification below the line at the bottom and electronically sign. The CDI & [facility] Coding staff will review the response and follow-up if needed. Please note: Queries are made part of the Legal Health Record. If you have any questions, please contact the author of this message via ITS. Dr. Jeremy Frankel Malnutrition, has been documented in the nutritional assessment. History/Risk Factors: COPD, Diabetes Mellitus, CHF, Everyday smoker Clinical Indicators: 88-year-old male who present with decreased intake with nausea, vomiting, diarrhea, and weight los over two months. He is emaciated, underweight, depressions between ribs, severe depletion in temporal and ducal region. Labs: Albumin 3.4 Total Protein 5.9 Current BMI: 15.6 Insufficient energy intake: yes Weight Loss: 19 % over 2 months Loss of subcutaneous fat: Yes Loss of muscle mass: Yes Treatment: Dietary Consult: Yes, Malnutrition, severe, social/enviromental Supplements: Commerical beverage, Enlive TID Monitor I/O Lab monitoring: In your professional opinion, can you please clarify if these findings signify one of the following conditions? Mild Protein-Calorie Malnutrition Moderate Protein-Calorie Malnutrition Severe Protein-Calorie Malnutrition Other condition, please specify Unable to determine (Last Revision: December 2017) MTDD
--- NOTE | 2018-12-30 10:35 | DS ---
DISCHARGE SUMMARY DATE OF ADMISSION: 12/23/2018 DATE OF DISCHARGE: 12/29/2018 PRINCIPAL DIAGNOSES: 1. Acute subendocardial myocardial infarction. 2. Acute pulmonary edema. 3. Dilated ischemic cardiomyopathy. 4. Congestive cardiac failure secondary to systolic and diastolic dysfunction. 5. Diabetes mellitus. 6. Chronic obstructive pulmonary disease. 7. Cachexia. 8. Osteoporotic compression fractures of the spine, chronic. 9. Chronic back pain. 10.Transient encephalopathy metabolic. 11.Ventricular tachycardia. 12.Metabolic encephalopathy. 13.Acute respiratory failure. HISTORY OF PRESENT ILLNESS: This is an 88-year-old gentleman who was admitted to the hospital with shortness of breath and pain in both arms. The patient in the emergency room subsequently developed significant shortness of breath and pulmonary edema. He was placed on BiPAP and diuresed. He was subsequently admitted to the hospital. His cardiac enzymes suggested myocardial injury and most suggestive of non ST elevated myocardial infarction. The patient was seen by Cardiology. Cardiac cath was contemplated. However, the patient due to his debility and after discussion with him, the patient elected not to have any invasive measures done. The patient's congestive cardiac failure was treated with diuresis with help. For a few days, he was mildly confused and this improved. The patient, however, did have a run of ventricular tachycardia and after discussion with the family and patient, it was elected that the patient be discharged home to hospice service. The goal is for terminal palliative care. The patient's prognosis remains guarded. Life expectancy less than 6 months. Discharge medications included: 1. Spironolactone 12.5 mg daily. 2. Carvedilol 6.25 mg b.i.d. 3. Lasix 20 mg daily. 4. Lidocaine patch 12 hours on, 12 hours off on the lower lumbar spine. 5. Plavix 75 mg daily. 6. Calcium carbonate 500 mg q.i.d. 7. Ativan 1 mg p.r.n. t.i.d. 8. Enalapril 5 mg daily. 9. Vytorin 10-20 one daily. 10.Multivitamins daily. 11.Aspirin 81 daily. 12.Imdur 30 mg daily. 13.Nitro sublingual p.r.n. 14.Hydrocodone 05/325 . 15.Metformin 500 mg daily. 16.Omeprazole 20 mg daily. Diet regular. Activity as tolerated. As mentioned patient, patient under hospice service. The patient's prognosis remains guarded and was discussed with the family and patient. MARY / MERCYN: [id number] /
== END 2018-12-28 16:43 | disposition hospice, home (50) | DRG 280 ==
LOC: EC 22:59 → 3SCARD 12-23 05:08
PROVIDERS: ADMIT Internal Medicine; ATTEND Internal Medicine
PROC: 5A09357 Assistance with Respiratory Ventilation, Less than 24 Consecutive Hours, Continuous Positive Airway Pressure (ICD-10-PCS; principal; 2018-12-23)
DX: I21.4 Non-ST elevation (NSTEMI) myocardial infarction (principal); I50.23 Acute on chronic systolic (congestive) heart failure; I49.01 Ventricular fibrillation; G93.41 Metabolic encephalopathy; J96.00 Acute respiratory failure, unspecified whether with hypoxia or hypercapnia; R64 Cachexia; I42.0 Dilated cardiomyopathy; I47.2 Ventricular tachycardia; Z51.5 Encounter for palliative care; Z66 Do not resuscitate; I25.5 Ischemic cardiomyopathy; E11.51 Type 2 diabetes mellitus with diabetic peripheral angiopathy without gangrene; I27.20 Pulmonary hypertension, unspecified; J44.9 Chronic obstructive pulmonary disease, unspecified; I11.0 Hypertensive heart disease with heart failure; I44.7 Left bundle-branch block, unspecified; D64.9 Anemia, unspecified; R54 Age-related physical debility; I25.10 Atherosclerotic heart disease of native coronary artery without angina pectoris; R91.1 Solitary pulmonary nodule; F41.9 Anxiety disorder, unspecified; E78.5 Hyperlipidemia, unspecified; K21.9 Gastro-esophageal reflux disease without esophagitis; R33.9 Retention of urine, unspecified; G89.29 Other chronic pain; I25.2 Old myocardial infarction; M80.88XS Other osteoporosis with current pathological fracture, vertebra(e), sequela; H91.90 Unspecified hearing loss, unspecified ear; F17.200 Nicotine dependence, unspecified, uncomplicated; Z71.6 Tobacco abuse counseling; Z79.82 Long term (current) use of aspirin; Z79.84 Long term (current) use of oral hypoglycemic drugs; Z79.899 Other long term (current) drug therapy; Z98.61 Coronary angioplasty status; Z95.2 Presence of prosthetic heart valve; Z86.79 Personal history of other diseases of the circulatory system; Z82.3 Family history of stroke; Z80.1 Family history of malignant neoplasm of trachea, bronchus and lung; Z82.49 Family history of ischemic heart disease and other diseases of the circulatory system; Z83.3 Family history of diabetes mellitus; Z80.7 Family history of other malignant neoplasms of lymphoid, hematopoietic and related tissues
CPT/HCPCS: 36415; 71045; 74177; 80048; 80053; 81003; 82150; 83690; 83735; 83880; 84484; 85025; 85610; 85730; 87502; 93005; 93306; 94640; 94660; 96361; 96374; 96375; 99285

== ENCOUNTER 2018-12-28 20:31 | Inpatient (IN) | payer MEDICARE, OTHER ==
[2018-12-28] MEDS ORDERED: HYDROmorphone 0.5 MG/0.5 ML SYRINGE IM STA (20:51)
[2018-12-28] MEDS ORDERED: HYDROmorphone 2 MG/ML 1 ML SYRINGE IM STA (20:56)
--- NOTE | 2018-12-28 20:57 | ED ---
Fall HPI - General Chief Complaint: Fall Stated Complaint: Fall Time Seen by Provider: 12/28/18 20:45 Source: patient, RN notes reviewed, old records reviewed Mode of arrival: EMS - History of Present Illness Initial Comments: This is an 88-year-old male the ER for evaluation. This patient resents today for evaluation regards to fall. Patient had a trip and fall in his bathroom complaining of severe left hip pain. Patient was unable to actively after fall. Patient is recent hospital admission for heart attack. Patient just discharged today MD Complaint: fall -: minutes(s) Fall From: standing When Fall Occurred: 1 hour [employer] Fall Witnessed: no Place Fall Occurred: home Loss of Consciousness: none Prolonged Down Time?: minute(s) Symptoms Prior to Fall: none Location: pelvis Location - Extremities: Left: Thigh, Leg Severity: severe Severity scale (1-10): 8 Quality: stabbing, crushing Context: tripped/slipped Associated Symptoms: denies - Related Data Home Medications Medication Instructions Recorded Confirmed Enalapril [Vasotec] 5 mg PO DAILY 07/03/14 12/30/18 Ezetimibe/Simvastatin [Vytorin 1 tab PO DAILY 07/03/14 12/30/18 10-20 mg Tablet] LORazepam [Ativan] 1 mg PO TID PRN 07/03/14 12/30/18 Multivitamins, Thera [Multivitamin 1 tab PO DAILY 02/13/15 12/30/18 (formulary)] HYDROcodone/APAP 5-325MG [[place] 1 tab PO TID PRN 02/10/18 12/30/18 5-325] Omeprazole 20 mg PO DAILY 12/08/18 12/30/18 metFORMIN HCL ER [Glucophage Xr] 500 mg PO HS 12/08/18 12/30/18 Previous Rx's Medication Instructions Recorded Aspirin EC [Ecotrin Low Dose] 81 mg PO BID tablet. 02/16/15 Isosorbide Mononitrate ER [Imdur] 30 mg PO DAILY tab.er.24h 02/16/15 Nitroglycerin Sl Tabs [Nitrostat] 0.4 mg SUBLINGUAL Q5M PRN #0 tab 02/16/15 Artificial Tears-Hypromellose 1 drops BOTH EYES TID PRN bottle 12/28/18 [Artificial Tear Drops] Calcium Carbonate [Tums] 500 mg PO QID PRN chew 12/28/18 Carvedilol [Coreg] 6.25 mg PO BID-W/MEALS #60 tab 12/28/18 Clopidogrel [Plavix] 75 mg PO DAILY #90 tab 12/28/18 Furosemide [Lasix] 20 mg PO DAILY #30 tab 12/28/18 Lidocaine 5% Patch [Lidoderm 5% 1 patch TOPICAL DAILY patch 12/28/18 Patch] Spironolactone [Aldactone] 12.5 mg PO DAILY #30 tab 12/28/18 Allergies Allergy/AdvReac Type Severity Reaction Status Date / Time No Known Allergies Allergy Verified 12/28/18 21:54 Review of Systems ROS Statement: Those systems with pertinent positive or pertinent negative responses have been documented in the HPI. ROS Other: All systems not noted in ROS Statement are negative. Past Medical History Past Medical History: COPD, Diabetes Mellitus, Hyperlipidemia, Hypertension, Memory Impairment Additional Past Medical History / Comment(s): Hard of Hearing History of Any Multi-Drug Resistant Organisms: None Reported Past Surgical History: Hernia Repair, Orthopedic Surgery Additional Past Surgical History / Comment(s): Triple A repair, heart valve repair. Past Anesthesia/Blood Transfusion Reactions: No Reported Reaction Past Psychological History: Anxiety Smoking Status: Current every day smoker Past Alcohol Use History: Occasional Past Drug Use History: None Reported - Past Family History Father Family Medical History: Cancer Mother Family Medical History: CVA/TIA General Exam Limitations: no limitations General appearance: alert, in no apparent distress, cachectic Head exam: Present: atraumatic, normocephalic, normal inspection Eye exam: Present: normal appearance, PERRL, EOMI. Absent: scleral icterus, conjunctival injection, periorbital swelling ENT exam: Present: normal exam, mucous membranes moist Neck exam: Present: normal inspection. Absent: tenderness, meningismus, lymphadenopathy Respiratory exam: Present: normal lung sounds bilaterally. Absent: respiratory distress, wheezes, rales, rhonchi, stridor Cardiovascular Exam: Present: regular rate, normal rhythm, normal heart sounds. Absent: systolic murmur, diastolic murmur, rubs, gallop, clicks GI/Abdominal exam: Present: soft, normal bowel sounds. Absent: distended, tenderness, guarding, rebound, rigid Extremities exam: Present: normal inspection, full ROM, normal capillary refill, other (Left hip tenderness). Absent: tenderness, pedal edema, joint swelling, calf tenderness Back exam: Present: normal inspection Neurological exam: Present: alert, oriented X3, CN II-XII intact Psychiatric exam: Present: normal affect, normal mood Skin exam: Present: warm, dry, intact, normal color. Absent: rash Course Vital Signs 12/28/18 12/28/18 12/28/18 20:34 21:10 22:53 Temperature 97.6 F Pulse Rate 82 79 87 Respiratory 18 18 18 Rate Blood Pressure 185/119 173/98 156/92 O2 Sat by Pulse 94 L 96 94 L Oximetry 12/28/18 23:20 Temperature 99 F Pulse Rate Respiratory Rate Blood Pressure O2 Sat by Pulse Oximetry - Reevaluation(s) Reevaluation #1: Spoke with family at length regarding fall and positive findings of fracture, questions answered Patient has pain control - Consultations Consultation #1: Spoke with both orthopedics and Dr. Frankel regarding admission Medical Decision Making - Medical Decision Making 88 male the ER for evaluation of fall. Patient recently discharged status post AR placed on hospice. fAll result in left hip fracture. Patient be admitted for pain control and orthopedic consultation - Lab Data Result diagrams: 12/28/18 21:41 12/28/18 21:41 - Radiology Data Radiology results: report reviewed (CXR, XR left hip positive for fracture), image reviewed Disposition Clinical Impression: Fall, Hip fracture, left Disposition: ADMITTED IP TO THIS [facility] Condition: Fair Is patient prescribed a controlled substance at d/c from ED?: No
[2018-12-28] MEDS ORDERED: HYDROmorphone 1 MG/ML 1 ML SYRINGE IVP STA (21:07)
[2018-12-28] MEDS ORDERED: SODIUM CHLORIDE 0.9% 1,000 ML IV STA ×2 (21:29)
--- NOTE | 2018-12-28 21:37 | XR ---
EXAMINATION TYPE: XR Hip LT and AP Pelvis DATE OF EXAM: 12/28/2018 COMPARISON: NONE HISTORY: Hip pain pelvic pain TECHNIQUE: A single AP view of the pelvis is obtained. Two views of the left hip are obtained. FINDINGS: There is comminuted intertrochanteric fracture left femur. There is coxa vera deformity. Th ere is no dislocation. The pelvic ring is intact. There is vascular calcification. IMPRESSION: Intertrochanteric fracture left femur.
--- NOTE | 2018-12-28 21:38 | XR ---
EXAMINATION TYPE: XR chest 1V DATE OF EXAM: 12/28/2018 COMPARISON: 12/23/2018 HISTORY: Pain TECHNIQUE: Single frontal view of the chest is obtained. FINDINGS: Heart is enlarged. There is pulmonary vascular congestion. There is slight blunting of lef t costophrenic angle. Thoracic aorta is atheromatous. IMPRESSION: Congestive heart failure. Pulmonary edema is improved compared to last exam.
[2018-12-28 21:54] LABS: Basophils % (A) 0 %; Eosinophils # (A) 0.1 k/uL (0-0.7); Eosinophils % (A) 1 %; HGB 13.2 gm/dL (13.0-17.5); Lymphocytes # (A) 2.6 k/uL (1.0-4.8); Lymphocytes % (A) 21 %; MCH 30.2 pg (25.0-35.0); MCHC 32.1 g/dL (31.0-37.0); MCV 94.1 fL (80.0-100.0); Mean Platelet Volume 8.1; Monocytes # (A) 0.7 k/uL (0-1.0); Monocytes % (A) 6 %; Neutrophils # (A) 8.4 k/uL (1.3-7.7); Neutrophils % (A) 70 %; Platelet Count 234 k/uL (150-450); RBC 4.36 m/uL (4.30-5.90); RDW 14.4 % (11.5-15.5); WBC 12.1 k/uL (3.8-10.6)
[2018-12-28 22:02] LABS: Prothrombin Time 10.5 sec (9.0-12.0)
[2018-12-28 22:03] LABS: Partial Thromboplastin Time 23.3 sec (22.0-30.0)
[2018-12-28 22:04] LABS: ALT 63 U/L (21-72); AST 40 U/L (17-59); Albumin 3.6 g/dL (3.5-5.0); Alkaline Phosphatase 118 U/L (38-126); Anion Gap 7 mmol/L; Blood Urea Nitrogen 26 mg/dL (9-20); Calcium 9.4 mg/dL (8.4-10.2); Carbon Dioxide 27 mmol/L (22-30); Chloride 102 mmol/L (98-107); Glucose 132 mg/dL (74-99); Magnesium 1.7 mg/dL (1.6-2.3); Potassium 5.1 mmol/L (3.5-5.1); Sodium 136 mmol/L (137-145); Total Protein 6.3 g/dL (6.3-8.2)
[2018-12-29] MEDS ORDERED: HYDROcodone/APAP 5-325MG 1 EACH TAB PO PRN (00:31)
[2018-12-29] MEDS ORDERED: ARTIFICIAL TEARS-HYPROMELLOSE DROPS 15 ML BTL BOTH EYES PRN (00:31)
[2018-12-29] MEDS ORDERED: NITROGLYCERIN SL TABS 0.4 MG TAB SUBLINGUAL PRN (00:31)
[2018-12-29] MEDS ORDERED: CALCIUM CARBONATE 500 MG CHEWABLE PO PRN (00:31)
[2018-12-29] MEDS: CARVEDILOL 6.25 MG TAB PO SCH ×3 (01:51→18:00)
[2018-12-29] MEDS: LORazepam 1 MG TAB PO PRN ×2 (04:30→14:57)
[2018-12-29 06:46] LABS: Glucose,Whole Blood 126 mg/dL (75-99)
[2018-12-29] MEDS ORDERED: PANTOPRAZOLE 40 MG TABLET PO SCH (07:30)
[2018-12-29] MEDS: HYDROmorphone 1 MG/ML 1 ML SYRINGE IVP PRN ×3 (08:03→16:35)
--- NOTE | 2018-12-29 08:59 | CONS ---
CONSULTATION ATTENDING PHYSICIAN: Dr. Bowles. CONSULTING PHYSICIAN: Dr. Enedelia Frankel. CHIEF COMPLAINT: Pain, left hip area. HISTORY OF PRESENT ILLNESS: This is an 88-year-old gentleman who was admitted to the hospital after being discharged in the morning from the hospital. He had a hospital stay with a subendocardial CT, congestive cardiac failure, and ventricular fibrillation. No ventricular tachycardia. The patient been doing well during the past few days in the hospital. He was in stable cardiac status. However, he has an ejection fraction of 20% and the patient is basically end of life situation. He was transferred home on hospice services. The patient was at home. The daughter went to the closet to get him underwear and clothes. The patient was seen disease, stood up and fell. He denies any dizziness or any syncopal episode. As he turned around, he lost his balance and fell. The patient is very cachectic. He is alert this morning and denies any headaches. He has only complained of pain in the left hip. PAST MEDICAL HISTORY: Significant for coronary artery disease, ischemic cardiomyopathy with ejection fraction 20%. The patient has a pulmonary nodules suspicious of possible malignancy. However, we have been following it for the past 3 years with hardly any change. The patient elected not to have anything done. Has a history of COPD, essential hypertension, diabetes mellitus, peripheral arterial disease. Previous aortic aneurysm, abdominal aortic aneurysm repaired about 25 years ago. PAST SURGICAL HISTORY: Significant for abdominal aortic aneurysm repair. Also history of tonsillectomy, bilateral inguinal herniorrhaphy. PERSONAL HISTORY: The patient is a smoker, still smokes occasional cigarette, it has been 50+ years of smoker. Alcohol occasionally. Drinks only one drink a day. ALLERGIES: None known. MEDICATIONS: At present include metformin 5 mg daily, spironolactone 12.5 daily, omeprazole 20 mg daily, multivitamin daily, uses Lidoderm 5% patch to the lumbar spine, Ativan 1 mg p.r.n. t.i.d., Imdur 30 mg daily, [place] 5/325 t.i.d. p.r.n., Lasix 20 mg daily, Vytorin 10/20 daily, Enalapril 5 mg daily, Plavix 75 mg daily, Coreg 6.25 mg b.i.d., calcium TUMS 5 mg q.i.d., aspirin 81 b.i.d., and Artificial Tears. SOCIAL HISTORY: Patient is , lives at home with a daughter. As mentioned hospice service. REVIEW OF SYSTEMS: NEURO: Denies any headaches, dizziness. No double vision, blurred vision. No symptoms of TIA, syncope, seizures. PSYCH: No anxiety, depression, mild occasional confusion. CARDIAC: Denies chest pain, angina, palpitation. RESPIRATORY: Denies shortness of breath. Has mild chronic cough. No hemoptysis. GI: No nausea, vomiting, abdominal pain, diarrhea, constipation. : No symptoms of dysuria or hematuria. Has frequency, urgency, incontinence. EXTREMITIES: Pain left hip. CONSTITUTIONAL: No fever, chills. PHYSICAL EXAMINATION: Pleasant gentleman in no distress. Vital signs reveals a temperature 98, pulse 57, respirations 16, blood pressure 163/85, pulse ox 97% on 2 L. HEENT: Normocephalic. NECK: Decreased range of motion. Pupils reactive. Oral cavity is dry. Neck shows was no JVD. Faint carotid bruits. Chest examination clear to percussion anteriorly. Posteriorly, the patient has some dry crackles at the bases, left side. CARDIAC: Distant heart sounds, S1, S2 with no gallops. Systolic murmur 2/6 left sternal border. ABDOMEN: Soft. No palpable masses. Bowel sounds normal. No organomegaly. No abdominal bruits. Extremities reveal left leg externally rotated. Pedal pulses decreased. Neurologically awake, alert, oriented with well-coordinated movements both upper extremities. LABORATORY ASSESSMENT: White count 12.1, hemoglobin 13.2, PT, PTT is normal. Sodium 136, BUN 26, creatinine 0.68. Troponin 0.045. Albumin 3.6. ASSESSMENT: 1. Fall at home. 2. Left hip fracture. 3. Status post recent subendocardial myocardial infarction. 4. Acute congestive cardiac failure. systolic dysfunction, resolved. 5. Dilated ischemic cardiomyopathy, ejection fraction 20%. 6. Diabetes mellitus. 7. Cachexia. 8. Chronic obstructive pulmonary disease. 9. Pulmonary nodule. 10.Previous history of abdominal aortic aneurysm. PLAN: Patient at present is stable clinically. The patient is at high risk for surgery; however, it is an emergent situation. The patient and daughter understand the high risk of surgery. Cardiology will see the patient preoperatively. Prognosis guarded. Continue present medications. Hold Plavix. MMODL / IJN: [id number] /
[2018-12-29] MEDS ORDERED: ATORVASTATIN 10 MG TAB PO SCH (09:00)
[2018-12-29] MEDS ORDERED: FUROSEMIDE 20 MG TAB PO SCH (09:00)
[2018-12-29] MEDS ORDERED: SPIRONOLACTONE 25 MG TAB PO SCH (09:00)
[2018-12-29] MEDS ORDERED: LISINOPRIL 10 MG TAB PO SCH (09:00)
[2018-12-29] MEDS ORDERED: EZETIMIBE 10 MG TAB PO SCH (09:00)
[2018-12-29] MEDS ORDERED: ISOSORBIDE MONONITRATE ER 30 MG TAB.ER.24H PO SCH (09:00)
[2018-12-29 11:35] LABS: Glucose,Whole Blood 122 mg/dL (75-99)
--- NOTE | 2018-12-29 11:48 | P.CRDCN ---
History of Present Illness History of present illness: This is a pleasant 88-year-old male past medical history significant for coronary artery disease, ischemic cardiomyopathy, recent acute myocardial infarction with non-sustained VT and VF on maximum medical management, hypertension, chronic systolic heart failure, COPD, chronic nicotine dependence and diabetes mellitus. He follows with Dr. Guerra in the office. He was discharged home from the hospital after suffering an acute NSTEMI with associated VT/VF and heart failure on Friday afternoon. Upon discharge he went home on hospice. Once at home his daughter in law assisted him to the bedside commode and left the room to get his clothes. Upon returning to the room he was on the floor. Apparently he attempted to stand and get himself back to bed and fell suffering a left intertrochanteric femur fracture. He is seen and examined resting comfortably in bed. He denies chest pain, shortness of breath, dizziness or palpitations. He states he was simply trying to stand up and was too weak. He currently denies symptoms of chest pain or shortness of breath. Currently maintained on aspirin 81 mg twice a day, carvedilol 6.25 mg twice a day, Plavix 75 mg daily, enalapril 5 mg daily, Lasix 20 mg daily, Imdur 30 mg daily and Aldactone 12.5 mg. Blood pressure 163/85 heart rate 57 afebrile and maintaining oxygen saturation on nasal cannula. The daughter in law is at the bedside and states they plan to meet with the orthopedic surgeon around noontime and discuss options. They are considering no surgery and ongoing hospice care. Chest xray reveals improved pulmonary edema compared to previous exam. Laboratory data reviewed, WBC 12.1, hgb 13.2, plt 234, sodium 136, potassium 5.1, creatinine 0.68, magnesium 1.7, troponin 0.045. At the time of my exam: CONSTITUTIONAL: Denies fever. Denies chills. EYES: Denies blurred vision. Denies vision changes. Denies eye pain. EARS, NOSE, MOUTH & THROAT: Denies headache. Denies sore throat. Denies ear pain. CARDIOVASCULAR: Denies chest pain. Denies shortness of breath. Denies orthopnea. Denies PND. Denies palpitations. RESPIRATORY: Denies cough. GASTROINTESTINAL: Denies abdominal pain. Denies diarrhea. Denies constipation. D enies nausea. Denies vomiting. MUSCULOSKELETAL: Complains of pain to the left hip with movement, no pain at rest. INTEGUMENTARY: Denies pruitis. Denies rash. NEUROLOGIC: Denies numbness. Denies tingling. Complains of weakness. PSYCHIATRIC: Denies anxiety. Denies depression. ENDOCRINE: Denies fatigue. Denies weight change. Denies polydipsia. Denies polyurina. GENITOURINARY: Denies burning, hematuria or urgency with micturation. HEMATOLOGIC: Denies history of anemia. Denies bleeding. GENERAL: This is a 88-year-old male in no apparent distress at the time of my examination. HEENT: Head is atraumatic, normocephalic. Pupils are equal, round. Sclerae anicteric. Conjunctivae are clear. Mucous membranes of the mouth are moist. Neck is supple. There is mild jugular venous distention. No carotid bruit is heard. LUNGS: Clear to auscultation no wheezes, rales or rhonchi. No chest wall t enderness is noted on palpation or with deep breathing. HEART: Regular rate and rhythm with systolic ejection murmur at the left sternal border, no rubs or gallops. S1 and S2 heard. ABDOMEN: Soft, nontender. Bowel sounds are heard. No organomegaly noted. EXTREMITIES: No evidence of peripheral edema and no calf tenderness noted. Left leg shortened and externally rotated. VASCULAR: Radial and dorsalis pedis pulses palpated, no evidence of clubbing. NEUROLOGIC: Patient is awake, alert and oriented x3. ASSESSMENT Left intertrochanteric femur fracture s/p fall from standing due to weakness Chronic systolic heart failure, EF less then 20% Recent NSTEMI, medical management recommended Non-sustained VT and VF surrounding recent AL. COPD Ischemic cardiomyopathy, EF less then 20% Hypertension Diabetes mellitus Chronic nicotine dependence PLAN Overall from a cardiac perspective he is free of angina. However, due to his recent cardiac events he is an extremely high risk surgical candidate. The likelihood of a cardiac event is very high due to recent infarct with VF and VT. This has been discussed in great detail with the daughter in law. We will continue to follow closely. Thank you kindly for this consultation. Nurse Practitioner note has been reviewed, I agree with a documented findings and plan of care. Patient was seen and examined. Past Medical History Past Medical History: COPD, Diabetes Mellitus, Hyperlipidemia, Hypertension, Memory Impairment, Myocardial Infarction (AL) Additional Past Medical History / Comment(s): Hard of Hearing, sleep apnea Last Myocardial Infarction Date:: 12/23/18 History of Any Multi-Drug Resistant Organisms: None Reported Past Surgical History: Hernia Repair, Orthopedic Surgery Additional Past Surgical History / Comment(s): Triple A repair, heart valve repair. Past Anesthesia/Blood Transfusion Reactions: No Reported Reaction Past Psychological History: Anxiety Smoking Status: Current every day smoker Past Alcohol Use History: Occasional Additional Past Alcohol Use History / Comment(s): Pt. states that he smokes about 8 cigarettes per day. Past Drug Use History: None Reported - Past Family History Father Family Medical History: Cancer Mother Family Medical History: CVA/TIA Medications and Allergies Home Medications Medication Instructions Recorded Confirmed Type Enalapril [Vasotec] 5 mg PO DAILY 07/03/14 12/28/18 History Ezetimibe/Simvastatin [Vytorin 1 tab PO DAILY 07/03/14 12/28/18 History 10-20 mg Tablet] LORazepam [Ativan] 1 mg PO TID PRN 07/03/14 12/28/18 History Multivitamins, Thera [Multivitamin 1 tab PO DAILY 02/13/15 12/28/18 History (formulary)] Aspirin EC [Ecotrin Low Dose] 81 mg PO BID tablet. 02/16/15 12/28/18 Rx Isosorbide Mononitrate ER [Imdur] 30 mg PO DAILY tab.er.24h 02/16/15 12/28/18 Rx Nitroglycerin Sl Tabs [Nitrostat] 0.4 mg SUBLINGUAL Q5M PRN #0 tab 02/16/15 12/28/18 Rx HYDROcodone/APAP 5-325MG [[place] 1 tab PO TID PRN 02/10/18 12/28/18 History 5-325] Omeprazole 20 mg PO DAILY 12/08/18 12/28/18 History metFORMIN HCL ER [Glucophage Xr] 500 mg PO HS 12/08/18 12/28/18 History Artificial Tears-Hypromellose 1 drops BOTH EYES TID PRN bottle 12/28/18 12/28/18 Rx [Artificial Tear Drops] Calcium Carbonate [Tums] 500 mg PO QID PRN chew 12/28/18 12/28/18 Rx Carvedilol [Coreg] 6.25 mg PO BID-W/MEALS #60 tab 12/28/18 12/28/18 Rx Clopidogrel [Plavix] 75 mg PO DAILY #90 tab 12/28/18 12/28/18 Rx Furosemide [Lasix] 20 mg PO DAILY #30 tab 12/28/18 12/28/18 Rx Lidocaine 5% Patch [Lidoderm 5% 1 patch TOPICAL DAILY patch 12/28/18 12/28/18 Rx Patch] Spironolactone [Aldactone] 12.5 mg PO DAILY #30 tab 12/28/18 12/28/18 Rx Allergies Allergy/AdvReac Type Severity Reaction Status Date / Time No Known Allergies Allergy Verified 12/28/18 21:54 Physical Exam Vitals: Vital Signs Temp Pulse Pulse Resp BP BP Pulse Ox 12/29/18 07:00 98 F 57 L 16 163/85 97 12/29/18 05:24 64 144/80 12/29/18 04:00 14 12/29/18 03:59 57 L 16 165/85 97 12/29/18 00:30 16 12/28/18 23:44 97.8 F 79 17 169/103 94 L 12/28/18 23:20 99 F 12/28/18 22:53 87 18 156/92 94 L 12/28/18 21:10 79 18 173/98 96 12/28/18 20:34 97.6 F 82 18 185/119 94 L Intake and Output 12/28/18 12/29/18 12/29/18 22:59 06:59 14:59 Other: Voiding Method Diaper Incontinent # Voids 1 Weight 51.71 kg Results 12/28/18 21:41 12/28/18 21:41 Cardiac Enzymes 12/28/18 12/28/18 Range/Units 21:41 21:41 AST 40 (17-59) U/L Troponin I 0.045 H* (0.000-0.034) ng/mL Coagulation 12/28/18 Range/Units 21:41 PT 10.5 (9.0-12.0) sec APTT 23.3 (22.0-30.0) sec CBC 12/28/18 Range/Units 21:41 WBC 12.1 H (3.8-10.6) k/uL RBC 4.36 (4.30-5.90) m/uL Hgb 13.2 (13.0-17.5) gm/dL Hct 41.0 (39.0-53.0) % Plt Count 234 (150-450) k/uL Comprehensive Metabolic Panel 12/28/18 Range/Units 21:41 Sodium 136 L (137-145) mmol/L Potassium 5.1 (3.5-5.1) mmol/L Chloride 102 (98-107) mmol/L Carbon Dioxide 27 (22-30) mmol/L BUN 26 H (9-20) mg/dL Creatinine 0.68 (0.66-1.25) mg/dL Glucose 132 H (74-99) mg/dL Calcium 9.4 (8.4-10.2) mg/dL AST 40 (17-59) U/L ALT 63 (21-72) U/L Alkaline Phosphatase 118 (38-126) U/L Total Protein 6.3 (6.3-8.2) g/dL Albumin 3.6 (3.5-5.0) g/dL Current Medications Generic Name Dose Route Start Last Admin Trade Name Freq PRN Reason Stop Dose Admin Hydrocodone Bitart/Acetaminophen 1 each 12/29/18 00:31 12/29/18 03:35 [place] 5-325 PO 1 each TID PRN Administration Pain Artificial Tears 1 drops 12/29/18 00:31 Artificial Tear Drops BOTH EYES TID PRN Dry Eye(s) Atorvastatin Calcium 10 mg 12/29/18 09:00 12/29/18 08:07 Lipitor PO 10 mg DAILY ARTURO Administration Calcium Carbonate/Glycine 500 mg 12/29/18 00:31 Tums PO QID PRN Heartburn Carvedilol 6.25 mg 12/29/18 00:45 12/29/18 01:51 Coreg PO 6.25 mg BID-W/MEALS ARTURO Administration Ezetimibe 10 mg 12/29/18 09:00 12/29/18 08:09 Zetia PO 10 mg DAILY ARTURO Administration Furosemide 20 mg 12/29/18 09:00 12/29/18 08:06 Lasix PO 20 mg DAILY ARTURO Administration Hydromorphone HCl 1 mg 12/29/18 07:26 12/29/18 08:03 Dilaudid IVP 1 mg Q3HR PRN Administration Pain Sodium Chloride 1,000 mls @ 50 mls/hr 12/28/18 21:29 12/29/18 03:18 Saline 0.9% IV 12/29/18 17:28 Not Given .Q20H STA Isosorbide Mononitrate 30 mg 12/29/18 09:00 12/29/18 08:08 Imdur PO 30 mg DAILY ARTURO Administration Lisinopril 10 mg 12/29/18 09:00 12/29/18 08:08 Zestril PO 10 mg DAILY ARTURO Administration Lorazepam 1 mg 12/29/18 00:31 12/29/18 04:30 Ativan PO 1 mg TID PRN Administration Anxiety Multivitamins 1 each 12/29/18 12:00 Theragran PO DAILY@1200 ARTURO Pantoprazole Sodium 40 mg 12/29/18 07:30 12/29/18 08:06 Protonix PO 40 mg DAILY@0730 [facility] Administration Spironolactone 12.5 mg 12/29/18 09:00 12/29/18 08:05 Aldactone PO 12.5 mg DAILY ARTURO Administration Intake and Output 12/28/18 12/29/18 12/29/18 22:59 06:59 14:59 Other: Voiding Method Diaper Incontinent # Voids 1 Weight 51.71 kg 12/28/18 21:41 12/28/18 21:41
[2018-12-29] MEDS ORDERED: MULTIVITAMINS, THERA 1 EACH TAB PO SCH (12:00)
[2018-12-29 14:37] VITALS: BMI 17.3
--- NOTE | 2018-12-29 15:28 | P.CNOR ---
History of Present Illness - [facility] Consult date: 12/29/18 History of present illness: This patient is an 88 year old male with a past medical history of CAD, ischemic cardiomyopathy, recent acute VT, hypertension, chronic systolic heart failure, COPD, chronic nicotine dependence, and diabetes mellitus that presented to the [facility] ED yesterday evening following a fall in the home. The patient was discharged home from the hospital Friday morning after an acute NSTEMI. He was discharged home on hospice. The patient's daughter in law was with the patient in the bathroom, she states she turned her back and the patient stood up without assistance, and fell in the bathroom. He was subsequently brought to the [facility] ED via EMS for evaluation and treatment. Upon arrival to the ED, the patient was found to have sustained a left intertrochanteric femur fracture. The patient was admitted to internal medicine with consults placed to orthopedics and cardiology. Currently, the patient states his pain is well-controlled. His [id number] is bedside, with his daughter, Felicia, on speaker phone. Per the [id number] and daughter, the family is considering discharging the patient to an inpatient hospice vs. undergoing surgical fixation of the left intertrochanteric femur fracture. Per the patient's daughter in law, at baseline, the patient is able to ambulate around the home with minimal assistance. Patient was seen and examined with Dr. Bowles. Past Medical History Past Medical History: COPD, Diabetes Mellitus, Hyperlipidemia, Hypertension, Memory Impairment, Myocardial Infarction ([place]) Additional Past Medical History / Comment(s): Hard of Hearing, sleep apnea Last Myocardial Infarction Date:: 12/23/18 History of Any Multi-Drug Resistant Organisms: None Reported Past Surgical History: Hernia Repair, Orthopedic Surgery Additional Past Surgical History / Comment(s): Triple A repair, heart valve repair. Past Anesthesia/Blood Transfusion Reactions: No Reported Reaction Past Psychological History: Anxiety Smoking Status: Current every day smoker Past Alcohol Use History: Occasional Additional Past Alcohol Use History / Comment(s): Pt. states that he smokes about 8 cigarettes per day. Past Drug Use History: None Reported - Past Family History Father Family Medical History: Cancer Mother Family Medical History: CVA/TIA Medications and Allergies Home Medications Medication Instructions Recorded Confirmed Type Enalapril [Vasotec] 5 mg PO DAILY 07/03/14 12/28/18 History Ezetimibe/Simvastatin [Vytorin 1 tab PO DAILY 07/03/14 12/28/18 History 10-20 mg Tablet] LORazepam [Ativan] 1 mg PO TID PRN 07/03/14 12/28/18 History Multivitamins, Thera [Multivitamin 1 tab PO DAILY 02/13/15 12/28/18 History (formulary)] Aspirin EC [Ecotrin Low Dose] 81 mg PO BID tablet. 02/16/15 12/28/18 Rx Isosorbide Mononitrate ER [Imdur] 30 mg PO DAILY tab.er.24h 02/16/15 12/28/18 Rx Nitroglycerin Sl Tabs [Nitrostat] 0.4 mg SUBLINGUAL Q5M PRN #0 tab 02/16/15 12/28/18 Rx HYDROcodone/APAP 5-325MG [[place] 1 tab PO TID PRN 02/10/18 12/28/18 History 5-325] Omeprazole 20 mg PO DAILY 12/08/18 12/28/18 History metFORMIN HCL ER [Glucophage Xr] 500 mg PO HS 12/08/18 12/28/18 History Artificial Tears-Hypromellose 1 drops BOTH EYES TID PRN bottle 12/28/18 12/28/18 Rx [Artificial Tear Drops] Calcium Carbonate [Tums] 500 mg PO QID PRN chew 12/28/18 12/28/18 Rx Carvedilol [Coreg] 6.25 mg PO BID-W/MEALS #60 tab 12/28/18 12/28/18 Rx Clopidogrel [Plavix] 75 mg PO DAILY #90 tab 12/28/18 12/28/18 Rx Furosemide [Lasix] 20 mg PO DAILY #30 tab 12/28/18 12/28/18 Rx Lidocaine 5% Patch [Lidoderm 5% 1 patch TOPICAL DAILY patch 12/28/18 12/28/18 Rx Patch] Spironolactone [Aldactone] 12.5 mg PO DAILY #30 tab 12/28/18 12/28/18 Rx Allergies Allergy/AdvReac Type Severity Reaction Status Date / Time No Known Allergies Allergy Verified 12/28/18 21:54 Physical Examination On examination, the patient is laying in bed in no apparent distress. His daughter in law is bedside. He appears comfortable. His breathing appears labor ed. On inspection, the left lower extremity is abducted and externally rotated. On inspection of the left hip, there are no open wounds or lacerations. There is no ecchymosis, erythema, or skin discoloration. The left hip is mildly tender to palpation. Dorsalis pedis pulse palpable. The left foot is warm and well perfused with brisk capillary refill. Neurovascular is intact of the left lower extremity. Results Xray left hip 12/28/18: Intertrochanteric fracture of the left femur. No additional fractures seen. - Labs Labs: Abnormal Lab Results - Last 24 Hours (Table) 12/28/18 12/28/18 12/28/18 Range/Units 21:41 21:41 21:41 WBC 12.1 H (3.8-10.6) k/uL Neutrophils # 8.4 H (1.3-7.7) k/uL Sodium 136 L (137-145) mmol/L BUN 26 H (9-20) mg/dL Glucose 132 H (74-99) mg/dL POC Glucose (mg/dL) (75-99) mg/dL Troponin I 0.045 H* (0.000-0.034) ng/mL 12/29/18 Range/Units 06:45 WBC (3.8-10.6) k/uL Neutrophils # (1.3-7.7) k/uL Sodium (137-145) mmol/L BUN (9-20) mg/dL Glucose (74-99) mg/dL POC Glucose (mg/dL) 126 H (75-99) mg/dL Troponin I (0.000-0.034) ng/mL H & H 12/28/18 Range/Units 21:41 Hgb 13.2 (13.0-17.5) gm/dL Hct 41.0 (39.0-53.0) % Coagulation 12/28/18 Range/Units 21:41 INR 1.0 (<1.2) Result Diagrams: 12/28/18 21:41 12/28/18 21:41 Assessment and Plan Assessment: Left intertrochanteric femur fracture Plan: - Strict non-weight bearing on the left leg. Continue pain management. - A lengthy discussion was had with the patient, his [id number], and daughter, who was spoken to via speaker phone, with Dr. Bowles. It was discussed that in a healthy individual, surgery would be recommended for this fracture. Although, with the patient's multiple medical co-morbidities, he is at a very high risk for a surgery. The options for treatment were discussed, including operative and non-operative treatment. - Recommended the patient and his family discuss with the internal medicine and cardiology team about the patient's specific risks to undergo a surgery, and to obtain the recommendations of these teams before making their decision. We will continue to follow patient, and make recommendations accordingly, per the pat ient's and his family's wishes. Patient discussed with Dr. Bowles.
[2018-12-29 16:55] LABS: Glucose,Whole Blood 156 mg/dL (75-99)
[2018-12-29 20:11] VITALS: BP 107/70; PULSE 59; RESP 16; TEMP 98.1
--- NOTE | 2018-12-30 11:19 | P.DS ---
Providers Date of admission: 12/28/18 21:33 Expected date of discharge: 12/30/18 Attending physician: Gosia Short DO Consults: 12/28/18 21:31 Consult Physician Routine Consulting Provider: You Bowles Consult Reason/Comments: hip fx Do you want consulting provider notified?: Already Contacted Consult Physician Routine Consulting Provider: Teetee Guerra Consult Reason/Comments: medClear Do you want consulting provider notified?: Yes Primary care physician: Jeremy Frankel Hospital Course: Discharge Diagnosis: Left intratrochanteric hip fracture Ischemic cardiomyopathy EF<20% CAD with recent acute VT DM 2 Cachexia, severe protein calorie malnutrition COPD Pulmonary nodule Hospital Course: Patient is an 88-year-old male past medical history of recent myocardial infarction, ejection fraction less than 20%, and diabetes who presented to the ER after a mechanical fall. He was found have a left intertrochanteric hip fracture. Patient was recently hospitalized here from 12/23 through 12/28/18 secondary to acute exacerbation of systolic congestive heart failure and non-STEMI. He was discharged home with hospice care. Unfortunately after arrival home he had a fall resulting in hip fracture. He initially was admitted to orthopedic surgery who transferred his care to us. He was seen by cardiology and orthopedics. After much discussion with the family they felt that surgery was not in the patient's best interest secondary to his overall long-term prognosis. Patient was having difficulty with pain control. Family wished to re-enroll in hospice and patient was subsequently discharged to [facility] hospice. Patient seen and examined at bedside in the morning. Was complaining of pain in left hip, did not want garvey cath placed, no nausea or vomiting Vital signs reviewed and stable. General: non toxic, mild distress due to pain, appears at stated age Derm: warm, dry Head: atraumatic, normocephalic, symmetric Eyes: EOMI, no lid lag, anicteric sclera Mouth: no lip lesion, mucus membranes moist Cardiovascular: S1S2 reg, no murmur, positive posterior tibial pulse bilateral, Lungs: decreased bs bilateral, no rhonchi, no rales , no accessory muscle use Ext: + gross muscle atrophy, no edema, no contractures Neuro: CN II-XI grossly intact, no focal neuro deficits Psych: Alert, oriented, appropriate affect A total of 25 minutes of time were spent preparing this complex discharge summary . Pertinent Studies: Left intertrochanteric femur fracture Patient Condition at Discharge: Fair Plan - Discharge Summary Discharge Rx Participant: No New Discharge Prescriptions: No Action LORazepam [Ativan] 1 mg PO TID PRN PRN Reason: Anxiety Enalapril [Vasotec] 5 mg PO DAILY Ezetimibe/Simvastatin [Vytorin 10-20 mg Tablet] 1 tab PO DAILY Multivitamins, Thera [Multivitamin (formulary)] 1 tab PO DAILY Aspirin EC [Ecotrin Low Dose] 81 mg PO BID tablet. Isosorbide Mononitrate ER [Imdur] 30 mg PO DAILY tab.er.24h Nitroglycerin Sl Tabs [Nitrostat] 0.4 mg SUBLINGUAL Q5M PRN #0 tab PRN Reason: Chest Pain HYDROcodone/APAP 5-325MG [[place] 5-325] 1 tab PO TID PRN PRN Reason: Pain metFORMIN HCL ER [Glucophage Xr] 500 mg PO HS Omeprazole 20 mg PO DAILY Spironolactone [Aldactone] 12.5 mg PO DAILY #30 tab Artificial Tears-Hypromellose [Artificial Tear Drops] 1 drops BOTH EYES TID PRN bottle PRN Reason: Dry Eye(S) Carvedilol [Coreg] 6.25 mg PO BID-W/MEALS #60 tab Furosemide [Lasix] 20 mg PO DAILY #30 tab Lidocaine 5% Patch [Lidoderm 5% Patch] 1 patch TOPICAL DAILY patch Clopidogrel [Plavix] 75 mg PO DAILY #90 tab Calcium Carbonate [Tums] 500 mg PO QID PRN chew PRN Reason: Heartburn Discharge Medication List Enalapril [Vasotec] 5 mg PO DAILY 07/03/14 [History] Ezetimibe/Simvastatin [Vytorin 10-20 mg Tablet] 1 tab PO DAILY 07/03/14 [History] LORazepam [Ativan] 1 mg PO TID PRN 07/03/14 [History] Multivitamins, Thera [Multivitamin (formulary)] 1 tab PO DAILY 02/13/15 [History] Aspirin EC [Ecotrin Low Dose] 81 mg PO BID tablet. 02/16/15 [Rx] Isosorbide Mononitrate ER [Imdur] 30 mg PO DAILY tab.er.24h 02/16/15 [Rx] Nitroglycerin Sl Tabs [Nitrostat] 0.4 mg SUBLINGUAL Q5M PRN #0 tab 02/16/15 [Rx] HYDROcodone/APAP 5-325MG [[place] 5-325] 1 tab PO TID PRN 02/10/18 [History] Omeprazole 20 mg PO DAILY 12/08/18 [History] metFORMIN HCL ER [Glucophage Xr] 500 mg PO HS 12/08/18 [History] Artificial Tears-Hypromellose [Artificial Tear Drops] 1 drops BOTH EYES TID PRN bottle 12/28/18 [Rx] Calcium Carbonate [Tums] 500 mg PO QID PRN chew 12/28/18 [Rx] Carvedilol [Coreg] 6.25 mg PO BID-W/MEALS #60 tab 12/28/18 [Rx] Clopidogrel [Plavix] 75 mg PO DAILY #90 tab 12/28/18 [Rx] Furosemide [Lasix] 20 mg PO DAILY #30 tab 12/28/18 [Rx] Lidocaine 5% Patch [Lidoderm 5% Patch] 1 patch TOPICAL DAILY patch 12/28/18 [Rx] Spironolactone [Aldactone] 12.5 mg PO DAILY #30 tab 12/28/18 [Rx] Follow up Appointment(s)/Referral(s): Jeremy Frankel MD [Primary Care Provider] - 1-2 days Discharge Disposition: DISCH TO [facility]
== END 2018-12-29 22:18 | disposition hospice, inpatient (51) | DRG 535 ==
LOC: EC 20:31 → 4SSUR 21:33
PROVIDERS: ADMIT Internal Medicine; ATTEND Internal Medicine
DX: S72.142A Displaced intertrochanteric fracture of left femur, initial encounter for closed fracture (principal); E43 Unspecified severe protein-calorie malnutrition; I42.0 Dilated cardiomyopathy; I50.22 Chronic systolic (congestive) heart failure; R64 Cachexia; R32 Unspecified urinary incontinence; E11.51 Type 2 diabetes mellitus with diabetic peripheral angiopathy without gangrene; I11.0 Hypertensive heart disease with heart failure; J44.9 Chronic obstructive pulmonary disease, unspecified; I25.5 Ischemic cardiomyopathy; E78.5 Hyperlipidemia, unspecified; F17.210 Nicotine dependence, cigarettes, uncomplicated; G47.30 Sleep apnea, unspecified; H91.90 Unspecified hearing loss, unspecified ear; I25.10 Atherosclerotic heart disease of native coronary artery without angina pectoris; I25.2 Old myocardial infarction; F41.9 Anxiety disorder, unspecified; R91.1 Solitary pulmonary nodule; Z79.02 Long term (current) use of antithrombotics/antiplatelets; Z79.82 Long term (current) use of aspirin; Z79.84 Long term (current) use of oral hypoglycemic drugs; Z79.899 Other long term (current) drug therapy; Z86.79 Personal history of other diseases of the circulatory system; Z82.3 Family history of stroke; Z80.9 Family history of malignant neoplasm, unspecified; W01.0XXA Fall on same level from slipping, tripping and stumbling without subsequent striking against object, initial encounter; Y92.002 Bathroom of unspecified non-institutional (private) residence as the place of occurrence of the external cause
CPT/HCPCS: 36415; 71045; 73502; 80053; 83735; 84100; 84484; 85025; 85610; 85730; 93005; 96374; 99285

== ENCOUNTER 2018-12-29 19:40 | Inpatient (IN) | payer MEDICAID ==
[2018-12-29] MEDS ORDERED: ACETAMINOPHEN SUPPOSITORY 650 MG SUPP RECTAL PRN (20:40)
[2018-12-29] MEDS ORDERED: MORPHINE SULFATE 2 MG/ML SYRINGE IV PRN (20:40)
[2018-12-29] MEDS ORDERED: ATROPINE OPHTH SOLN 1% 5ML BTL SUBLINGUAL PRN (20:40)
[2018-12-29] MEDS ORDERED: BISACODYL 10 MG SUPP RECTAL PRN (20:44)
[2018-12-29] MEDS ORDERED: SCOPOLAMINE 1.5MG/72HR PATCH TRANSDERM SCH (20:45)
[2018-12-29] MEDS ORDERED: MORPHINE SULFATE (100 MG/2 ML) 100 MG in SODIUM CHLORIDE 0.9% 100 ML IV SCH (20:45)
[2018-12-30] MEDS: LORazepam 2 MG/ML INJ IV PRN ×2 (00:21→04:31)
[2018-12-30] MEDS ORDERED: CYCLOBENZAPRINE 5 MG TAB PO PRN (10:43)
--- NOTE | 2018-12-30 11:12 | P.HPIM ---
History of Present Illness H&P Date: 12/30/18 Chief Complaint: left leg pain Patient is an 88-year-old male with past medical history of recent and STEMI with known ischemic cardiomyopathy ejection fraction 20%, history of V. fib, pulmonary nodule suspicious for malignancy, and COPD who presented to the emergency department with left leg pain after a mechanical fall. The patient had initially been hospitalized through 12/28 with a non-STEMI, congestive heart failure, and ventricular fibrillation. He was discharged on 12/28 and was having hospice at [place] [facility]. On 12/28 after returning home he fell. In the ER he underwent an extensive evaluation was subsequently found to have a left intertrochanteric hip fracture. He was seen by cardiology and orthopedic surgery. He was found to be an extremely high risk for surgery. After myself, cardiology, orthopedic surgery just talked with the family they elected to proceed with hospice care and no surgical intervention. Patient was subsequently discharged from the medical floor and admitted to hospice. Patient seen and examined at bedside. He is currently nonverbal. He is having episodes of apnea for approximately 25 seconds but then breathes normally. He is not grimacing and appears comfortable. All information is obtained from thorough medical record review including review of all records from his admission from 12/23 through 12/28/18. Case also discussed with Dr. Frankel patient's PCP. Review of Systems Unable to obtain secondary to lethargy ROS unobtainable: due to mental status Past Medical History Past Medical History: COPD, Diabetes Mellitus, Hyperlipidemia, Hypertension, Memory Impairment, Myocardial Infarction ([place]) Additional Past Medical History / Comment(s): Hard of Hearing, sleep apnea, is chemic cardiomyopathy with ejection fraction 20%, congestive heart failure, pulmonary nodules suspicious for possible malignancy, COPD, hypertension, diabetes, peripheral arterial disease, aortic aneurysm Last Myocardial Infarction Date:: 12/23/18 History of Any Multi-Drug Resistant Organisms: None Reported Past Surgical History: Hernia Repair, Orthopedic Surgery Additional Past Surgical History / Comment(s): Abdominal aortic aneurysm repair, heart valve repair, tonsillectomy, bilateral inguinal hernia repair Past Anesthesia/Blood Transfusion Reactions: No Reported Reaction Past Psychological History: Anxiety Smoking Status: Current every day smoker Past Alcohol Use History: Occasional Additional Past Alcohol Use History / Comment(s): Pt. states that he smokes about 8 cigarettes per day. Past Drug Use History: None Reported Additional History: Lives with his [id number] and son - Past Family History Father Family Medical History: Cancer Mother Family Medical History: CVA/TIA Medications and Allergies Home Medications Medication Instructions Recorded Confirmed Type Enalapril [Vasotec] 5 mg PO DAILY 07/03/14 12/30/18 History Ezetimibe/Simvastatin [Vytorin 1 tab PO DAILY 07/03/14 12/30/18 History 10-20 mg Tablet] LORazepam [Ativan] 1 mg PO TID PRN 07/03/14 12/30/18 History Multivitamins, Thera [Multivitamin 1 tab PO DAILY 02/13/15 12/30/18 History (formulary)] Aspirin EC [Ecotrin Low Dose] 81 mg PO BID tablet.dr 02/16/15 12/30/18 Rx Isosorbide Mononitrate ER [Imdur] 30 mg PO DAILY tab.er.24h 02/16/15 12/30/18 Rx Nitroglycerin Sl Tabs [Nitrostat] 0.4 mg SUBLINGUAL Q5M PRN #0 tab 02/16/15 12/30/18 Rx HYDROcodone/APAP 5-325MG [[place] 1 tab PO TID PRN 02/10/18 12/30/18 History 5-325] Omeprazole 20 mg PO DAILY 12/08/18 12/30/18 History metFORMIN HCL ER [Glucophage Xr] 500 mg PO HS 12/08/18 12/30/18 History Artificial Tears-Hypromellose 1 drops BOTH EYES TID PRN bottle 12/28/18 12/30/18 Rx [Artificial Tear Drops] Calcium Carbonate [Tums] 500 mg PO QID PRN chew 12/28/18 12/30/18 Rx Carvedilol [Coreg] 6.25 mg PO BID-W/MEALS #60 tab 12/28/18 12/30/18 Rx Clopidogrel [Plavix] 75 mg PO DAILY #90 tab 12/28/18 12/30/18 Rx Furosemide [Lasix] 20 mg PO DAILY #30 tab 12/28/18 12/30/18 Rx Lidocaine 5% Patch [Lidoderm 5% 1 patch TOPICAL DAILY patch 12/28/18 12/30/18 Rx Patch] Spironolactone [Aldactone] 12.5 mg PO DAILY #30 tab 12/28/18 12/30/18 Rx Allergies Allergy/AdvReac Type Severity Reaction Status Date / Time No Known Allergies Allergy Verified 12/28/18 21:54 Physical Exam Osteopathic Statement: *. No significant issues noted on an osteopathic structural exam other than those noted in the History and Physical/Consult. Vitals: Vital Signs Resp 12/30/18 03:15 24 12/30/18 02:45 12 Intake and Output 12/29/18 12/30/18 12/30/18 22:59 06:59 14:59 Intake Total 13.821 Balance 13.821 Intake: Intake, IV Titration 13.821 Amount Morphine Sulfate (100 mg/ 13.821 2 ml) 100 mg In Sodium Chloride 0.9% 100 ml @ 2 MG/HR 2.04 mls/hr IV . Q24H [facility] Rx#:[id number] Other: Voiding Method Indwelling Catheter Weight 49.895 kg General: Ill appearing, no distress,appears at stated age, normal weight Derm: Multiple areas of ecchymoses, dry skin, warm, dry Head: atraumatic, normocephalic, symmetric Eyes: Pupils are pinpoint, anicteric sclera, eyes are not tracking ENT: Nose and ears atraumatic, no thrush, no pharyngeal erythema Neck: No thyromegaly, no cervical lymphadenopathy, trachea midline, supple Mouth: no lip lesion, mucus membranes dry Cardiovascular: S1S2 irreg, no murmur, positive posterior tibial pulse bilateral, no edema, capillary refill less than 2 seconds Lungs: course bs bilateral, no rhonchi, no rales , + accessory muscle use, + apnea Abdominal: soft, nontender to palpation, no guarding, no appreciable organomegaly, normal bowel sounds Ext: + gross muscle atrophy, No muscle fasciculation, no contractures, Neuro: CN II-XI grossly intact, moving arms independently, no tremors, +withdrawal to pain b/l UE Psych: Somnolent Thrombosis Risk Factor Assmnt - DVT/VTE Prophylaxis DVT/VTE Prophylaxis: Low risk, early ambulation encouraged Assessment and Plan Assessment: End-stage systolic congestive heart failure with ejection fraction less than 20%, end-stage coronary artery disease with recent myocardial infarction -Continue with hospice care -Morphine drip for comfort, as needed Ativan, on scopolamine patch -Added Flexeril to help with muscle spasms -Pleasure feedings if awake and alert and appropriate for them -Discussed with family overall prognosis. Patient appears to be comfortable at this time. Left intratrochanteric hip fracture - non operative management with non-weigh bearing - pain control with morphine gtt - as needed flexeril to help with muscle spasm. Cachexia, severe protein calorie malnutrition BMI 20.8 - pleasure feeds if awake and alert Chronic conditions: Diabetes Hypertension Dyslipidemia COPD Pulmonary nodules DVT prophylaxis: none Discussed with: Daughter in law, son, Dr. Frankel, nursing Anticipated discharge: Anticipate patient will pass in hours to days Anticipated discharge place: ? hospice house vs remain GIP A total of [45] minutes was spent on the care of this complex patient more than 50% of the time was spent in counseling and care coordination.
[2018-12-30 15:42] VITALS: RESP 18
--- NOTE | 2018-12-30 18:14 | P.DS ---
Providers Date of admission: 12/29/18 22:20 Expected date of discharge: 12/30/18 Attending physician: Gosia Short DO Primary care physician: Jeremy Frankel Hospital Course: Discharge Diagnosis: Ischemic cardiomyopathy Systolic CHF Recent Acute NSTEMI Left IT femur fracture Cachexia, severe protein calorie malnutrition BMI 20.8 Diabetes Hypertension Dyslipidemia COPD Pulmonary nodules Hospital Course: Patient is an 88-year-old male with past medical history of recent NSTEMI with known ischemic cardiomyopathy ejection fraction 20%, history of V. fib, pulmonary nodule suspicious for malignancy, and COPD who presented to the emergency department with left leg pain after a mechanical fall. The patient had initially been hospitalized 12/23 - 12/28 with a non-STEMI, congestive heart failure, and ventricular fibrillation. He was discharged on 12/28 and was having hospice at his [facility]. On 12/28 after returning home he fell. In the ER he underwent an extensive evaluation was subsequently found to have a left intertrochanteric hip fracture. He was seen by cardiology and orthopedic surgery. He was found to be an extremely high risk for surgery. After Dr. Frankel, myself, cardiology, and orthopedic surgery talked with the family they elected to proceed with hospice care and no surgical intervention. Patient was subsequently discharged from the medical floor and admitted to hospice. He was placed on a morphine gtt which was titrated for comfort. He was started on scopolamine patch. He peacefully on the evening of 12/30/2018. Melia [id number] Anna notified by myself of patient passing. Nursing will notify hospice. Patient seen and examined at bedside. Time of 1750. Pupils fixed and dilated, absent respirations, absent heart sounds, no pulse, skin warm, not responsive to verbal or physical stimuli. A total of 25 minutes of time were spent preparing this complex discharge summary . Plan - Discharge Summary New Discharge Prescriptions: No Action LORazepam [Ativan] 1 mg PO TID PRN PRN Reason: Anxiety Enalapril [Vasotec] 5 mg PO DAILY Ezetimibe/Simvastatin [Vytorin 10-20 mg Tablet] 1 tab PO DAILY Multivitamins, Thera [Multivitamin (formulary)] 1 tab PO DAILY Aspirin EC [Ecotrin Low Dose] 81 mg PO BID tablet. Isosorbide Mononitrate ER [Imdur] 30 mg PO DAILY tab.er.24h Nitroglycerin Sl Tabs [Nitrostat] 0.4 mg SUBLINGUAL Q5M PRN #0 tab PRN Reason: Chest Pain HYDROcodone/APAP 5-325MG [[place] 5-325] 1 tab PO TID PRN PRN Reason: Pain metFORMIN HCL ER [Glucophage Xr] 500 mg PO HS Omeprazole 20 mg PO DAILY Spironolactone [Aldactone] 12.5 mg PO DAILY #30 tab Artificial Tears-Hypromellose [Artificial Tear Drops] 1 drops BOTH EYES TID PRN bottle PRN Reason: Dry Eye(S) Carvedilol [Coreg] 6.25 mg PO BID-W/MEALS #60 tab Furosemide [Lasix] 20 mg PO DAILY #30 tab Lidocaine 5% Patch [Lidoderm 5% Patch] 1 patch TOPICAL DAILY patch Clopidogrel [Plavix] 75 mg PO DAILY #90 tab Calcium Carbonate [Tums] 500 mg PO QID PRN chew PRN Reason: Heartburn Discharge Medication List Enalapril [Vasotec] 5 mg PO DAILY 07/03/14 [History] Ezetimibe/Simvastatin [Vytorin 10-20 mg Tablet] 1 tab PO DAILY 07/03/14 [History] LORazepam [Ativan] 1 mg PO TID PRN 07/03/14 [History] Multivitamins, Thera [Multivitamin (formulary)] 1 tab PO DAILY 02/13/15 [History] Aspirin EC [Ecotrin Low Dose] 81 mg PO BID tablet. 02/16/15 [Rx] Isosorbide Mononitrate ER [Imdur] 30 mg PO DAILY tab.er.24h 02/16/15 [Rx] Nitroglycerin Sl Tabs [Nitrostat] 0.4 mg SUBLINGUAL Q5M PRN #0 tab 02/16/15 [Rx] HYDROcodone/APAP 5-325MG [[place] 5-325] 1 tab PO TID PRN 02/10/18 [History] Omeprazole 20 mg PO DAILY 12/08/18 [History] metFORMIN HCL ER [Glucophage Xr] 500 mg PO HS 12/08/18 [History] Artificial Tears-Hypromellose [Artificial Tear Drops] 1 drops BOTH EYES TID PRN bottle 12/28/18 [Rx] Calcium Carbonate [Tums] 500 mg PO QID PRN chew 12/28/18 [Rx] Carvedilol [Coreg] 6.25 mg PO BID-W/MEALS #60 tab 12/28/18 [Rx] Clopidogrel [Plavix] 75 mg PO DAILY #90 tab 12/28/18 [Rx] Furosemide [Lasix] 20 mg PO DAILY #30 tab 12/28/18 [Rx] Lidocaine 5% Patch [Lidoderm 5% Patch] 1 patch TOPICAL DAILY patch 12/28/18 [Rx] Spironolactone [Aldactone] 12.5 mg PO DAILY #30 tab 12/28/18 [Rx] Discharge Disposition: - Preliminary Cause of Preliminary Cause of : congestive heart failure
== END 2018-12-30 19:29 | disposition expired | DRG 951 ==
LOC: 4SSUR 22:20
PROVIDERS: ADMIT Internal Medicine; ATTEND Internal Medicine
DX: Z51.5 Encounter for palliative care (principal); E43 Unspecified severe protein-calorie malnutrition; I21.4 Non-ST elevation (NSTEMI) myocardial infarction; S72.142A Displaced intertrochanteric fracture of left femur, initial encounter for closed fracture; R64 Cachexia; I50.22 Chronic systolic (congestive) heart failure; Z66 Do not resuscitate; I49.01 Ventricular fibrillation; I50.84 End stage heart failure; I11.0 Hypertensive heart disease with heart failure; I25.5 Ischemic cardiomyopathy; Z68.20 Body mass index [BMI] 20.0-20.9, adult; E78.5 Hyperlipidemia, unspecified; E11.9 Type 2 diabetes mellitus without complications; I25.10 Atherosclerotic heart disease of native coronary artery without angina pectoris; M62.838 Other muscle spasm; R91.1 Solitary pulmonary nodule; J44.9 Chronic obstructive pulmonary disease, unspecified; H91.90 Unspecified hearing loss, unspecified ear; G47.30 Sleep apnea, unspecified; F17.210 Nicotine dependence, cigarettes, uncomplicated; F41.9 Anxiety disorder, unspecified; Z79.82 Long term (current) use of aspirin; Z79.02 Long term (current) use of antithrombotics/antiplatelets; Z79.84 Long term (current) use of oral hypoglycemic drugs; Z79.899 Other long term (current) drug therapy; Z86.79 Personal history of other diseases of the circulatory system; Z95.2 Presence of prosthetic heart valve; W18.30XA Fall on same level, unspecified, initial encounter